=== PATIENT | female | born 1960 | race African-American/Black ===

== ENCOUNTER 2019-06-15 13:16 | Observation (INO) | payer MEDICARE, OTHER ==
[2019-06-15] MEDS ORDERED: NITROGLYCERIN OINT 1 INCH/GM PACKET TOPICAL STA (13:59)
[2019-06-15 14:28] LABS: Basophils % (A) 0 %; Eosinophils # (A) 0.3 k/uL (0-0.7); Eosinophils % (A) 4 %; HCT 41.2 % (34.0-46.0); HGB 13.3 gm/dL (11.4-16.0); Lymphocytes # (A) 2.5 k/uL (1.0-4.8); Lymphocytes % (A) 32 %; MCH 31.2 pg (25.0-35.0); MCHC 32.3 g/dL (31.0-37.0); MCV 96.5 fL (80.0-100.0); Mean Platelet Volume 8.2; Monocytes # (A) 0.5 k/uL (0-1.0); Monocytes % (A) 7 %; Neutrophils # (A) 4.1 k/uL (1.3-7.7); Neutrophils % (A) 54 %; Platelet Count 261 k/uL (150-450); RBC 4.27 m/uL (3.80-5.40); RDW 14.3 % (11.5-15.5); WBC 7.6 k/uL (3.8-10.6)
[2019-06-15 14:38] LABS: D-Dimer 0.27 mg/L FEU (<0.60); INR 0.9 (<1.2); Partial Thromboplastin Time 26.2 sec (22.0-30.0); Prothrombin Time 9.8 sec (9.0-12.0)
[2019-06-15 14:45] LABS: ALT 97 U/L (9-52); AST 82 U/L (14-36); African American GFR (CKD) >90 (>60 ml/min/1.73 sqM); Albumin 4.3 g/dL (3.5-5.0); Alkaline Phosphatase 202 U/L (38-126); Anion Gap 10 mmol/L; Blood Urea Nitrogen 12 mg/dL (7-17); Calcium 9.6 mg/dL (8.4-10.2); Carbon Dioxide 26 mmol/L (22-30); Chloride 103 mmol/L (98-107); Glucose 84 mg/dL (74-99); Magnesium 1.5 mg/dL (1.6-2.3); Potassium 4.3 mmol/L (3.5-5.1); Sodium 139 mmol/L (137-145); Total Bilirubin 0.5 mg/dL (0.2-1.3); Total Protein 7.8 g/dL (6.3-8.2)
--- NOTE | 2019-06-15 14:53 | XR ---
EXAMINATION TYPE: XR chest 2V DATE OF EXAM: 06/15/2019 COMPARISON: NONE TECHNIQUE: PA and lateral views submitted. HISTORY: Chest pain FINDINGS: Subsegmental changes left lung base. No pleural effusion or pneumothorax. Heart size normal. Mild hyp erinflation. IMPRESSION: 1. Basilar atelectasis favored over pneumonia. Correlate for COPD..
[2019-06-15] MEDS ORDERED: MORPHINE SULFATE 2 MG/ML SYRINGE IVP STA ×2 (17:33→20:07)
[2019-06-15] MEDS ORDERED: ASPIRIN 81 MG PO STA (17:33)
--- NOTE | 2019-06-15 17:54 | ED ---
Chest Pain HPI - General Chief Complaint: Chest Pain Stated Complaint: Chest pain Time Seen by Provider: 06/15/19 13:53 Source: patient, EMS Mode of arrival: EMS Limitations: no limitations - History of Present Illness Initial Comments: This 58-year-old female presents with a complaint of some chest pain. She states that she initially was at her dentist today hoping to get some teeth pulled. They found that her blood pressure was high so she went home and took her blood pressure medication. Shortly thereafter she developed some chest pain which is more in the mid sternal region. There is a slight pleuritic component. She describes the pain as sharp in nature. She denies any shortness of breath or cough. There's been no fevers or chills. She does complain of dental pain. No other complaints or modifying factors. - Related Data Home Medications Medication Instructions Recorded Confirmed Albuterol Nebulized [Ventolin 2.5 mg INHALATION RT-Q4H PRN 06/15/19 06/15/19 Nebulized] Aspirin EC [Ecotrin] 325 mg PO DAILY 06/15/19 06/15/19 amLODIPine BESYLATE [Norvasc] 10 mg PO DAILY 06/15/19 06/15/19 diphenhydrAMINE [Benadryl] 25 mg PO QID PRN 06/15/19 06/15/19 Allergies Allergy/AdvReac Type Severity Reaction Status Date / Time ibuprofen [From Motrin] Allergy Itching Verified 06/15/19 13:51 Review of Systems ROS Statement: Those systems with pertinent positive or pertinent negative responses have been documented in the HPI. ROS Other: All systems not noted in ROS Statement are negative. Past Medical History Past Medical History: COPD, Hypertension, Thyroid Disorder History of Any Multi-Drug Resistant Organisms: None Reported Past Surgical History: No Surgical Hx Reported Past Psychological History: Bipolar Smoking Status: Current every day smoker Past Alcohol Use History: None Reported Past Drug Use History: Marijuana General Exam - General Exam Comments Initial Comments: GENERAL: The patient is well nourished and well hydrated. VITAL SIGNS: Heart rate, blood pressure, respiratory rate reviewed as recorded in nurse's notes. EYES: Pupils are round and reactive. Extraocular movements are intact. No conjunctival / lid redness or swelling. ENT: No external evidence of injury, swelling, or ecchymosis. Airway is patent. Throat is clear. NECK: Nontender. No swelling or evidence of injury. No subcutaneous emphysema. Trachea is midline. No thyroid mass. HEART: Regular rate and rhythm. Good peripheral pulses. LUNGS/CHEST: Breath sounds clear and equal bilaterally. No rales, rhonchi, or wheezes. No ecchymosis, subcutaneous emphysema, or tenderness. ABDOMEN: Abdomen soft without tenderness. No palpable masses or organomegaly. No peritoneal signs. No abdominal wall swelling or ecchymosis. EXTREMITIES: No extremity tenderness. Normal muscle tone and function. No thoracolumbar tenderness. NEUROLOGIC: Sensation is grossly intact. Cranial nerve exam reveals face is symmetrical, tongue is midline, speech is clear. SKIN: No abrasions or ecchymosis is noted. No induration or masses noted. PSYCHIATRIC: Alert and oriented. Appropriate behavior and judgment. Limitations: no limitations Course Vital Signs 06/15/19 06/15/19 06/15/19 13:27 13:28 13:30 Temperature 98.5 F Pulse Rate 87 87 89 Respiratory 13 18 12 Rate Blood Pressure 136/88 136/88 O2 Sat by Pulse 100 100 100 Oximetry 06/15/19 06/15/19 06/15/19 14:00 14:30 17:30 Temperature Pulse Rate 93 Respiratory 18 Rate Blood Pressure 130/99 141/102 138/98 O2 Sat by Pulse 99 Oximetry Chest Pain [facility] The patient was seen and examined. All diagnostics were reviewed. An EKG was done which shows a normal sinus rhythm at a rate of 86. There is no acute ST-T wave changes identified. The AL intervals 132, QRS duration is 82, and the QTC intervals 437. The patient does receive some Nitropaste. She later complains of a headache and receives 2 mg of morphine. She is ALLERGIC to Motrin but states that she can take aspirin so an aspirin was given orally. The laboratory analysis is also essentially within normal limits except for minor abnormalities. She is a negative d-dimer and troponin. The patient's chest x- ray does not show any acute processes. It is felt as though she would benefit from admission to the hospital. It is felt as though she potentially could have acute coronary syndrome and this needs to be further evaluated. She is agreeable. Case will be discussed with internal medicine shortly. Disposition Clinical Impression: Chest pain, Unstable angina pectoris Disposition: ADMITTED IP TO THIS HOSP Condition: Fair Is patient prescribed a controlled substance at d/c from ED?: No Referrals: [facility] [Primary Care Provider] - 1-2 days Time of Disposition: 17:54 Decision Date: 06/15/19 Decision Time: 17:54
[2019-06-15] MEDS ORDERED: MORPHINE SULFATE 2 MG/ML SYRINGE IVP PRN (17:55)
[2019-06-15] MEDS ORDERED: NITROGLYCERIN SL TABS 0.4 MG TAB SUBLINGUAL PRN (17:55)
[2019-06-15] MEDS ORDERED: diphenhydrAMINE 25 MG CAP PO PRN (17:58)
[2019-06-15] MEDS ORDERED: ALBUTEROL NEBULIZED 2.5 MG/3 ML INHALATION PRN (17:58)
[2019-06-15] MEDS: NITROGLYCERIN OINT 1 INCH/GM PACKET TOPICAL SCH ×2 (19:01→21:55)
[2019-06-16 03:52] LABS: Cholesterol 192 mg/dL (<200); HDL Cholesterol 102 mg/dL (40-60); LDL Cholesterol,Calculated 74 mg/dL (0-99); Triglycerides 78 mg/dL (<150)
[2019-06-16] MEDS ORDERED: amLODIPine 10 MG TAB PO SCH (09:00)
[2019-06-16] MEDS ORDERED: ASPIRIN 325 MG TAB PO SCH (09:00)
[2019-06-16] MEDS ORDERED: ENOXAPARIN 40 MG/0.4 ML SYRINGE SQ SCH (09:00)
[2019-06-16] MEDS ORDERED: Magnesium Replacement Protocol 1 EACH MISC MISCELLANE PRN (10:29)
[2019-06-16] MEDS: MAGNESIUM SULFATE-D5W PMX 1 GM in DEXTROSE/WATER 1 100ML.BAG IVPB SCH ×2 (11:34→11:35)
[2019-06-16 12:15] VITALS: BP 122/77; PULSE 85; RESP 17; TEMP 98.7
--- NOTE | 2019-06-16 12:15 | ECHOF ---
Referral Reason:cp MEASUREMENTS -------- HEIGHT: 167.6 cm WEIGHT: 57.6 kg BP: 127/82 RVIDd: 2.3 cm (< 3.3) IVSd: 1.0 cm (0.6 - 1.1) LVIDd: 4.0 cm (3.9 - 5.3) LVPWd: 0.9 cm (0.6 - 1.1) IVSs: 1.3 cm LVIDs: 2.9 cm LVPWs: 1.6 cm LA Diam: 2.7 cm (2.7 - 3.8) LAESV Index (A-L): 13.55 ml/m Ao Diam: 2.5 cm (2.0 - 3.7) AV Cusp: 1.9 cm (1.5 - 2.6) MV EXCURSION: 20.824 mm (> 18.000) MV EF SLOPE: 134 mm/s (70 - 150) EPSS: 0.5 cm MV E Gene: 0.54 m/s MV DecT: 370 ms MV A Gene: 0.62 m/s MV E/A Ratio: 0.88 FINDINGS -------- Sinus rhythm. This was a technically good study. The left ventricular size is normal. Left ventricular wall thickness is normal. Overall left vent ricular systolic function is normal with, an EF between 55 - 60 %. The right ventricle is normal in size. Normal LA size by volume 22+/-6 ml/m2. The right atrium is normal in size. Interatrial and interventricular septum intact. The aortic valve is trileaflet and appears structurally normal. The mitral valve is normal. The tricuspid valve appears structurally normal. The pulmonic valve was not well visualized. The aortic root size is normal. Normal inferior vena cava with normal inspiratory collapse consistent with estimated right atrial pre ssure of 5 mmHg. There is no pericardial effusion. CONCLUSIONS -------- 1. Sinus rhythm. 2. This was a technically good study. 3. The left ventricular size is normal. 4. Left ventricular wall thickness is normal. 5. Overall left ventricular systolic function is normal with, an EF between 55 - 60 %. 6. The right ventricle is normal in size. 7. Normal LA size by volume 22+/-6 ml/m2. 8. The right atrium is normal in size. 9. Interatrial and interventricular septum intact. 10. The aortic valve is trileaflet and appears structurally normal. 11. The mitral valve is normal. 12. The tricuspid valve appears structurally normal. 13. The pulmonic valve was not well visualized. 14. The aortic root size is normal. 15. Normal inferior vena cava with normal inspiratory collapse consistent with estimated right atrial pressure of 5 mmHg. 16. There is no pericardial effusion. [place] HAND: Pooja Yin RDCS
--- NOTE | 2019-06-16 12:29 | P.DS ---
Providers Date of admission: 06/15/19 17:55 Attending physician: Chica Simpson Consults: 06/15/19 17:55 Consult Physician Urgent Consulting Provider: Tara Mejia Consult Reason/Comments: cp Do you want consulting provider notified?: Yes Primary care physician: [facility] Course: Please refer to my HPI Patient Condition at Discharge: Fair Plan - Discharge Summary Discharge Rx Participant: No New Discharge Prescriptions: New Tiotropium [place] [Spiriva] 1 cap INHALATION DAILY #1 device Budesonide-Formot 160-4.5 Mcg [Symbicort 160-4.5 Mcg Inhaler] 2 puff INHALATION BID #1 inhaler Magnesium Oxide [Mag-Ox] 400 mg PO DAILY #20 tablet No Action diphenhydrAMINE [Benadryl] 25 mg PO QID PRN PRN Reason: Allergy Symptoms amLODIPine BESYLATE [Norvasc] 10 mg PO DAILY Aspirin EC [Ecotrin] 325 mg PO DAILY Albuterol Nebulized [Ventolin Nebulized] 2.5 mg INHALATION RT-Q4H PRN PRN Reason: Shortness Of Breath Discharge Medication List Albuterol Nebulized [Ventolin Nebulized] 2.5 mg INHALATION RT-Q4H PRN 06/15/19 [History] Aspirin EC [Ecotrin] 325 mg PO DAILY 06/15/19 [History] amLODIPine BESYLATE [Norvasc] 10 mg PO DAILY 06/15/19 [History] diphenhydrAMINE [Benadryl] 25 mg PO QID PRN 06/15/19 [History] Budesonide-Formot 160-4.5 Mcg [Symbicort 160-4.5 Mcg Inhaler] 2 puff INHALATION BID #1 inhaler 06/16/19 [Rx] Magnesium Oxide [Mag-Ox] 400 mg PO DAILY #20 tablet 06/16/19 [Rx] Tiotropium [place] [Spiriva] 1 cap INHALATION DAILY #1 device 06/16/19 [Rx] Follow up Appointment(s)/Referral(s): [facility] [Primary Care Provider] - 3 Days Tara Mejia MD [STAFF PHYSICIAN] - 06/29/19 2:30 pm Discharge Disposition: HOME SELF-CARE
--- NOTE | 2019-06-16 12:29 | P.HPIM ---
History of Present Illness Patient is a 58-year-old female came in with compensative chest pain, nonexertional not associated shortness of breath. Not associated with diaphoresis constant sharp nonradiating in the midsternal area patient chest pain is reproducible, and appears to be musculoskeletal in nature was evaluated by cardiology and we ruled out acute coronary syndromes no further testing is being recommended by cardiology as patient has completely typical pain which is reproducible. Upper exam patient is sitting and wheezing does smoke half a pack of cigarettes a day comparing of cough without any significant sputum production. I really want to keep this patient for COPD exacerbation although minimal but patient doesn't want to stay in is not requiring oxygen and start her on inhaled steroids and add the Spiriva to her albuterol and will be discharged to follow up with primary care physician as an outpatient patient has a common to mental health follow-up today Review of Systems REVIEW OF SYSTEMS: CONSTITUTIONAL: No fever, no malaise, no fatigue. HEENT: No recent visual problems or hearing problems. Denied any sore throat. CARDIOVASCULAR: No orthopnea, PND, no palpitations, no syncope. PULMONARY: no hemoptysis. GASTROINTESTINAL: No diarrhea, no nausea, no vomiting, no abdominal pain. NEUROLOGICAL: No headaches, no weakness, no numbness. HEMATOLOGICAL: Denies any bleeding or petechiae. GENITOURINARY: Denies any burning micturition, frequency, or urgency. MUSCULOSKELETAL/RHEUMATOLOGICAL: Denies any joint pain, swelling, or any muscle pain. ENDOCRINE: Denies any polyuria or polydipsia. The rest of the 14-point review of systems is negative. Past Medical History Past Medical History: COPD, Hypertension, Thyroid Disorder History of Any Multi-Drug Resistant Organisms: None Reported Past Surgical History: No Surgical Hx Reported Additional Past Surgical History / Comment(s): myasthenia gravis Past Anesthesia/Blood Transfusion Reactions: No Reported Reaction Past Psychological History: Anxiety, Bipolar, Depression Smoking Status: Current every day smoker Past Alcohol Use History: None Reported Past Drug Use History: Marijuana - Past Family History Father History Unknown: Yes Mother History Unknown: Yes Sister(s) History Unknown: Yes Brother(s) History Unknown: Yes Daughter(s) Family Medical History: No Reported History Son(s) Family Medical History: No Reported History Medications and Allergies Home Medications Medication Instructions Recorded Confirmed Type Albuterol Nebulized [Ventolin 2.5 mg INHALATION RT-Q4H PRN 06/15/19 06/15/19 History Nebulized] Aspirin EC [Ecotrin] 325 mg PO DAILY 06/15/19 06/15/19 History amLODIPine BESYLATE [Norvasc] 10 mg PO DAILY 06/15/19 06/15/19 History diphenhydrAMINE [Benadryl] 25 mg PO QID PRN 06/15/19 06/15/19 History Budesonide-Formot 160-4.5 Mcg 2 puff INHALATION BID #1 inhaler 06/16/19 Rx [Symbicort 160-4.5 Mcg Inhaler] Magnesium Oxide [Mag-Ox] 400 mg PO DAILY #20 tablet 06/16/19 Rx Tiotropium [place] [Spiriva] 1 cap INHALATION DAILY #1 device 06/16/19 Rx Allergies Allergy/AdvReac Type Severity Reaction Status Date / Time ibuprofen [From Motrin] Allergy Itching Verified 06/15/19 21:16 Physical Exam Vitals: Vital Signs Temp Pulse Pulse Resp BP BP Pulse Ox 06/16/19 12:00 98.7 F 85 17 122/77 98 06/16/19 07:39 98.5 F 71 16 127/82 100 06/16/19 03:22 98.0 F 84 18 125/77 99 06/15/19 23:44 98.0 F 83 16 118/75 97 06/15/19 21:06 98.4 F 83 16 120/79 97 06/15/19 20:18 96 18 121/87 98 06/15/19 19:18 98 F 93 18 128/105 97 06/15/19 19:00 99 16 153/95 94 L 06/15/19 18:30 90 16 154/99 98 06/15/19 18:00 147/98 06/15/19 17:30 93 18 138/98 99 06/15/19 14:30 141/102 06/15/19 14:00 130/99 06/15/19 13:30 89 12 136/88 100 06/15/19 13:28 98.5 F 87 18 136/88 100 06/15/19 13:27 87 13 100 Intake and Output 06/15/19 06/16/19 06/16/19 22:59 06:59 14:59 Other: Voiding Method Toilet Toilet # Voids 2 PHYSICAL EXAMINATION: GENERAL: The patient is alert and oriented x3, not in any acute distress. Well developed, well nourished. HEENT: Pupils are round and equally reacting to light. EOMI. No scleral icterus. No conjunctival pallor. Normocephalic, atraumatic. No pharyngeal erythema. No thyromegaly. CARDIOVASCULAR: S1 and S2 present. No murmurs, rubs, or gallops. PULMONARY: Decreased air entry with the expiratory wheezing on exam ABDOMEN: Soft, nontender, nondistended, normoactive bowel sounds. No palpable organomegaly. MUSCULOSKELETAL: No joint swelling or deformity. EXTREMITIES: No cyanosis, clubbing, or pedal edema. NEUROLOGICAL: Gross neurological examination did not reveal any focal deficits. SKIN: No rashes. Results CBC & Chem 7: 06/15/19 14:08 06/15/19 14:08 Labs: Abnormal Lab Results - Last 24 Hours (Table) 06/15/19 06/15/19 Range/Units 14:08 14:08 Creatinine 0.51 L (0.52-1.04) mg/dL Magnesium 1.5 L (1.6-2.3) mg/dL AST 82 H (14-36) U/L ALT 97 H (9-52) U/L Alkaline Phosphatase 202 H (38-126) U/L HDL Cholesterol 102 H (40-60) mg/dL Thrombosis Risk Factor Assmnt - Choose All That Apply Any of the Below Risk Factors Present?: Yes Each Factor Represents 1 point: Abnormal pulmonary function (COPD), Age 41-60 years, Varicose veins Other Risk Factors: No Other congenital or acquired thrombophilia - If yes, enter type in comment: No Thrombosis Risk Factor Assessment Total Risk Factor Score: 3 Thrombosis Risk Factor Assessment Level: Moderate Risk Assessment and Plan Assessment: -Chest pain: Rule out acute coronary syndromes, unstable angina, patient's chest pain is musculoskeletal was asked to take Tylenol on as-needed basis. Gallbladder ultrasound was ordered by cardiology. -COPD: Nicotine cessation counseling was provided patient will be discharged on inhaled steroids -Hypertension next and heparin hypothyroidism -Bipolar disorder and depression -Marijuana use and nicotine use: Counseling was provided
--- NOTE | 2019-06-16 12:30 | P.CRDCN ---
History of Present Illness History of present illness: This is a pleasant 58-year-old -[place] female past medical history significant for hypertension, COPD and chronic nicotine dependence. She denies history of coronary artery disease and does not follow with a senior telecommunications technician for any reason. We have been asked to see her in consultation secondary to chest discomfort. She states yesterday she went to the dentist to have a tooth pull ed, however her blood pressure was too high and they sent her home. She went back to the nursing home she is staying at and laid down. Shortly thereafter she started having pain in the mid-sternal region like someone was punching her in the chest. It felt very sharp and stabbing and was mildly worse with movement or palpation in epigastric region. This discomfort lasted up to an hour until she came to the emergency department for evaluation. There was no radiation to the arm, back, neck or jaw. She denies associated shortness of breath, dizziness, nausea, vomiting, diaphoresis or palpitations. She has had no further chest pain since arrival. EKG reveals sinus mechanism with no acute ST or T wave abnormalities noted. Chest x-ray reveals evidence of bibasilar atelectasis and COPD. Laboratory data reviewed, cardiac enzymes negative 3, WBC 7.6, hemoglobin 13.3, platelets 261, d-dimer 0.27, sodium 139, potassium 4.3, creatinine 0.51, magnesium 1.5, AST 82, ALT 97, alkaline phosphatase 202, LDL 74. Current cardiac medications include aspirin 325 mg daily and amlodipine 10 mg daily. At the time of my exam: CONSTITUTIONAL: Denies fever. Denies chills. EYES: Denies blurred vision. Denies vision changes. Denies eye pain. EARS, NOSE, MOUTH & THROAT: Denies headache. Denies sore throat. Denies ear pain. CARDIOVASCULAR: Denies chest pain. Denies shortness of breath. Denies orthopnea. Denies PND. Denies palpitations. RESPIRATORY: Denies cough. GASTROINTESTINAL: Denies abdominal pain. Denies diarrhea. Denies constipation. Denies nausea. Denies vomiting. MUSCULOSKELETAL: Denies myalgias. INTEGUMENTARY: Denies pruitis. Denies rash. NEUROLOGIC: Denies numbness. Denies tingling. Denies weakness. PSYCHIATRIC: Denies anxiety. Denies depression. ENDOCRINE: Denies fatigue. Denies weight change. Denies polydipsia. Denies polyurina. GENITOURINARY: Denies burning, hematuria or urgency with micturation. HEMATOLOGIC: Denies history of anemia. Denies bleeding. Blood pressure 127/82 heart rate 71 afebrile maintaining oxygen saturation on room air GENERAL: This is a 58-year-old -[place] female in no apparent distress at the time of my examination. HEENT: Head is atraumatic, normocephalic. Pupils are equal, round. Sclerae anicteric. Conjunctivae are clear. Mucous membranes of the mouth are moist. Neck is supple. There is no jugular venous distention. No carotid bruit is heard. LUNGS: Coarse sounds throughout, faint expiratory wheezes no rales. No chest wall tenderness is noted on palpation or with deep breathing. HEART: Regular rate and rhythm without murmurs, rubs or gallops. S1 and S2 heard. ABDOMEN: Soft, mild epigastric tenderness. Bowel sounds are heard. No organ omegaly noted. EXTREMITIES: No evidence of peripheral edema and no calf tenderness noted. VASCULAR: Radial and dorsalis pedis pulses palpated, no evidence of clubbing. NEUROLOGIC: Patient is awake, alert and oriented x3. ASSESSMENT Chest pain, atypical for angina. An acute coronary event has been ruled out. Epigastric discomfort with elevated liver enzymes and alkaline phosphatase. Hypomagnesemia Hypertension COPD Chronic nicotine dependence PLAN An acute coronary event has been ruled out. Obtain 2-D echocardiogram and Doppler study to assess cardiac structure and function. Check an ultrasound of the gallbladder to rule out underlying gallbladder disease. Replace magnesium per protocol. Decrease aspirin to 81 mg daily. Thank you kindly for this consultation. Nurse Practitioner note has been reviewed, I agree with a documented findings and plan of care. Patient was seen and examined. Past Medical History Past Medical History: COPD, Hypertension, Thyroid Disorder History of Any Multi-Drug Resistant Organisms: None Reported Past Surgical History: No Surgical Hx Reported Additional Past Surgical History / Comment(s): myasthenia gravis Past Anesthesia/Blood Transfusion Reactions: No Reported Reaction Past Psychological History: Anxiety, Bipolar, Depression Smoking Status: Current every day smoker Past Alcohol Use History: None Reported Past Drug Use History: Marijuana - Past Family History Father History Unknown: Yes Mother History Unknown: Yes Sister(s) History Unknown: Yes Brother(s) History Unknown: Yes Daughter(s) Family Medical History: No Reported History Son(s) Family Medical History: No Reported History Medications and Allergies Home Medications Medication Instructions Recorded Confirmed Type Albuterol Nebulized [Ventolin 2.5 mg INHALATION RT-Q4H PRN 06/15/19 06/15/19 History Nebulized] Aspirin EC [Ecotrin] 325 mg PO DAILY 06/15/19 06/15/19 History amLODIPine BESYLATE [Norvasc] 10 mg PO DAILY 06/15/19 06/15/19 History diphenhydrAMINE [Benadryl] 25 mg PO QID PRN 06/15/19 06/15/19 History Budesonide-Formot 160-4.5 Mcg 2 puff INHALATION BID #1 inhaler 06/16/19 Rx [Symbicort 160-4.5 Mcg Inhaler] Magnesium Oxide [Mag-Ox] 400 mg PO DAILY #20 tablet 06/16/19 Rx Tiotropium [place] [Spiriva] 1 cap INHALATION DAILY #1 device 06/16/19 Rx Allergies Allergy/AdvReac Type Severity Reaction Status Date / Time ibuprofen [From Motrin] Allergy Itching Verified 06/15/19 21:16 Physical Exam Vitals: Vital Signs Temp Pulse Pulse Resp BP BP Pulse Ox 06/16/19 07:39 98.5 F 71 16 127/82 100 06/16/19 03:22 98.0 F 84 18 125/77 99 06/15/19 23:44 98.0 F 83 16 118/75 97 06/15/19 21:06 98.4 F 83 16 120/79 97 06/15/19 20:18 96 18 121/87 98 06/15/19 19:18 98 F 93 18 128/105 97 06/15/19 19:00 99 16 153/95 94 L 06/15/19 18:30 90 16 154/99 98 06/15/19 18:00 147/98 06/15/19 17:30 93 18 138/98 99 06/15/19 14:30 141/102 06/15/19 14:00 130/99 06/15/19 13:30 89 12 136/88 100 06/15/19 13:28 98.5 F 87 18 136/88 100 06/15/19 13:27 87 13 100 Intake and Output 06/15/19 06/16/19 06/16/19 22:59 06:59 14:59 Other: Voiding Method Toilet Toilet # Voids 2 Results 06/15/19 14:08 06/15/19 14:08 Cardiac Enzymes 06/15/19 06/15/19 06/15/19 Range/Units 14:08 14:08 19:54 AST 82 H (14-36) U/L Troponin I <0.012 <0.012 (0.000-0.034) ng/mL 06/16/19 Range/Units 01:24 AST (14-36) U/L Troponin I <0.012 (0.000-0.034) ng/mL Coagulation 06/15/19 Range/Units 14:08 PT 9.8 (9.0-12.0) sec APTT 26.2 (22.0-30.0) sec Lipids 06/15/19 Range/Units 14:08 Triglycerides 78 (<150) mg/dL Cholesterol 192 (<200) mg/dL HDL Cholesterol 102 H (40-60) mg/dL CBC 06/15/19 Range/Units 14:08 WBC 7.6 (3.8-10.6) k/uL RBC 4.27 (3.80-5.40) m/uL Hgb 13.3 (11.4-16.0) gm/dL Hct 41.2 (34.0-46.0) % Plt Count 261 (150-450) k/uL Comprehensive Metabolic Panel 06/15/19 Range/Units 14:08 Sodium 139 (137-145) mmol/L Potassium 4.3 (3.5-5.1) mmol/L Chloride 103 (98-107) mmol/L Carbon Dioxide 26 (22-30) mmol/L BUN 12 (7-17) mg/dL Creatinine 0.51 L (0.52-1.04) mg/dL Glucose 84 (74-99) mg/dL Calcium 9.6 (8.4-10.2) mg/dL AST 82 H (14-36) U/L ALT 97 H (9-52) U/L Alkaline Phosphatase 202 H (38-126) U/L Total Protein 7.8 (6.3-8.2) g/dL Albumin 4.3 (3.5-5.0) g/dL Current Medications Generic Name Dose Route Start Last Admin Trade Name Freq PRN Reason Stop Dose Admin Albuterol Sulfate 2.5 mg 06/15/19 17:58 Ventolin Nebulized INHALATION RT-Q4H PRN Shortness Of Breath Amlodipine Besylate 10 mg 06/16/19 09:00 Norvasc PO DAILY [facility] Aspirin 325 mg 06/16/19 09:00 Aspirin PO DAILY [facility] Diphenhydramine HCl 25 mg 06/15/19 17:58 Benadryl PO QID PRN Allergy Symptoms Enoxaparin Sodium 40 mg 06/16/19 09:00 Lovenox SQ DAILY [facility] Morphine Sulfate 2 mg 06/15/19 17:55 Morphine Sulfate (Inj) IVP Q3H PRN Pain Nitroglycerin 0.4 mg 06/15/19 17:55 Nitrostat SUBLINGUAL Q5M PRN Chest Pain Intake and Output 06/15/19 06/16/19 06/16/19 22:59 06:59 14:59 Other: Voiding Method Toilet Toilet # Voids 2 06/15/19 14:08 06/15/19 14:08
--- NOTE | 2019-06-16 13:56 | US ---
EXAMINATION TYPE: US gallbladder DATE OF EXAM: 06/16/2019 COMPARISON: NONE CLINICAL HISTORY: abd pain, abd fullness,. Patient states no pain. NPO. EXAM MEASUREMENTS: Liver Length: 12.3 cm Gallbladder Wall: 0.2 cm CBD: 0.3 cm Right Kidney: 9.1 x 4.5 x 4.6 cm Pancreas: main pancreatic duct = 2.6 mm. Head not well visualized due to overlying bowel gas Liver: Appears coarse in appearance Gallbladder: Echogenic focus with shadow - 0.5 cm Evidence for sonographic Blackburn's sign: neg CBD: wnl Right Kidney: wnl as seen, limited visualization of lower pole due to overlying bowel gas IMPRESSION: 1. Contracted cholelithiasis. 2. Probable hepatic steatosis. Correlate clinically.
== END 2019-06-16 13:22 | disposition home or self-care (01) ==
LOC: EC 13:16 → 1SOBS 17:55
PROVIDERS: ADMIT Internal Medicine; ATTEND Internal Medicine
DX: R07.89 Other chest pain (principal); R10.13 Epigastric pain; E83.42 Hypomagnesemia; R74.8 Abnormal levels of other serum enzymes; J44.1 Chronic obstructive pulmonary disease with (acute) exacerbation; I10 Essential (primary) hypertension; G70.00 Myasthenia gravis without (acute) exacerbation; E03.9 Hypothyroidism, unspecified; F41.9 Anxiety disorder, unspecified; F31.9 Bipolar disorder, unspecified; I83.90 Asymptomatic varicose veins of unspecified lower extremity; K08.89 Other specified disorders of teeth and supporting structures; T47.4X6A Underdosing of other laxatives, initial encounter; Y92.239 Unspecified place in hospital as the place of occurrence of the external cause; T45.516A Underdosing of anticoagulants, initial encounter; F17.210 Nicotine dependence, cigarettes, uncomplicated; Z91.19 Patient's noncompliance with other medical treatment and regimen; Z79.82 Long term (current) use of aspirin; Z79.899 Other long term (current) drug therapy; Z79.51 Long term (current) use of inhaled steroids; Z88.6 Allergy status to analgesic agent; Z59.0 Homelessness
CPT/HCPCS: 96376; 96374; 99285; 36415; 93005; 93306; 85379; 80061; 80053; 83735; 84484 ×2; 85025; 85610; 85730; 71046; 76705; G0378 ×2; J2270

== ENCOUNTER 2019-07-12 10:44 | Inpatient (IN) | payer OTHER, MEDICARE ==
--- NOTE | 2019-07-12 11:32 | ED ---
Psych HPI - General Chief Complaint: Psychiatric Symptoms Stated Complaint: Mental Health Time Seen by Provider: 07/12/19 10:46 Source: patient, EMS, RN notes reviewed Mode of arrival: EMS Limitations: no limitations - History of Present Illness Initial Comments: 59-year-old female presented emergency department with chief complaint of depression, suicidal ideation. Patient states that her brother recently in which her sister sent a picture of him overdose of the needle in his arm. Patient states that she does not want to live anymore. Patient states that she is severely depressed. She does admit that she's been drinking alcohol recently because of her feelings. She does have a history of depression and psychiatric disorders. She denies any physical complaints. - Related Data Home Medications Medication Instructions Recorded Confirmed amLODIPine BESYLATE [Norvasc] 10 mg PO DAILY 06/15/19 07/12/19 Albuterol Sulfate [Proair 2 puff PO RT-Q6H PRN 07/12/19 07/12/19 Respiclick] Aspirin EC [Ecotrin Low Dose] 81 mg PO DAILY 07/12/19 07/12/19 Colloidal Oatmeal [Eucerin Eczema 1 applic TOPICAL BID 07/12/19 07/12/19 Relief] Loratadine [Claritin] 10 mg PO DAILY 07/12/19 07/12/19 QUEtiapine FUMARATE [SEROquel] 200 mg PO HS 07/12/19 07/12/19 Sertraline HCl [Zoloft] 100 mg PO DAILY 07/12/19 07/12/19 Allergies Allergy/AdvReac Type Severity Reaction Status Date / Time ibuprofen [From Motrin] Allergy Itching Verified 07/12/19 10:50 Review of Systems ROS Statement: Those systems with pertinent positive or pertinent negative responses have been documented in the HPI. ROS Other: All systems not noted in ROS Statement are negative. Past Medical History Past Medical History: COPD, Hypertension, Thyroid Disorder History of Any Multi-Drug Resistant Organisms: None Reported Past Surgical History: No Surgical Hx Reported Additional Past Surgical History / Comment(s): myasthenia gravis Past Anesthesia/Blood Transfusion Reactions: No Reported Reaction Past Psychological History: Anxiety, Bipolar, Depression Smoking Status: Current every day smoker Past Alcohol Use History: None Reported, Occasional Past Drug Use History: Marijuana - Past Family History Father History Unknown: Yes Mother History Unknown: Yes Sister(s) History Unknown: Yes Brother(s) History Unknown: Yes Daughter(s) Family Medical History: No Reported History Son(s) Family Medical History: No Reported History General Exam Limitations: no limitations General appearance: alert, in no apparent distress Head exam: Present: atraumatic, normocephalic, normal inspection Neck exam: Present: normal inspection, full ROM. Absent: tenderness, meningismus, lymphadenopathy Respiratory exam: Present: normal lung sounds bilaterally. Absent: respiratory distress, wheezes, rales, rhonchi, stridor Cardiovascular Exam: Present: regular rate, normal rhythm, normal heart sounds. Absent: systolic murmur, diastolic murmur, rubs, gallop, clicks GI/Abdominal exam: Present: soft, normal bowel sounds. Absent: distended, tenderness, guarding, rebound, rigid Neurological exam: Present: alert, oriented X3, CN II-XII intact, reflexes normal. Absent: motor sensory deficit Psychiatric exam: Present: depressed, other (Patient is tearful) Skin exam: Present: warm, dry, intact, normal color. Absent: rash Course Vital Signs 07/12/19 11:06 Temperature 99.3 F Pulse Rate 89 Respiratory 18 Rate Blood Pressure 152/100 O2 Sat by Pulse 100 Oximetry Medical Decision Making - Medical Decision Making 59-year-old female presented for psychiatric evaluation evaluated by EPS case discussed with psychiatrist recommends inpatient treatment. - Lab Data Lab Results 07/12/19 Range/Units 14:10 Urine Opiates Screen Not Detected (NotDetected) Ur Oxycodone Screen Not Detected (NotDetected) Urine Methadone Screen Not Detected (NotDetected) Ur Propoxyphene Screen Not Detected (NotDetected) Ur Barbiturates Screen Not Detected (NotDetected) U Tricyclic Antidepress Detected H (NotDetected) Ur Phencyclidine Scrn Not Detected (NotDetected) Ur Amphetamines Screen Not Detected (NotDetected) U Methamphetamines Scrn Not Detected (NotDetected) U Benzodiazepines Scrn Not Detected (NotDetected) Urine Cocaine Screen Not Detected (NotDetected) U Marijuana (THC) Screen Detected H (NotDetected) Disposition Clinical Impression: Depression, Suicidal ideation Disposition: TRANSFER TO PSYCH HOSP/UNIT Referrals: [facility],Milena Tello [Primary Care Provider] - 1-2 days
[2019-07-12] MEDS ORDERED: ACETAMINOPHEN TAB 325 MG TAB PO STA (11:46)
[2019-07-12 14:26] LABS: Amphetamine Screen,Urine Not Detected (NotDetected); Barbiturate Screen,Urine Not Detected (NotDetected); Benzodiazepines Screen,Urine Not Detected (NotDetected); Cocaine Screen,Urine Not Detected (NotDetected); Methadone Screen, Urine Not Detected (NotDetected); Opiate Screen,Urine Not Detected (NotDetected); Oxycodone Screen, Urine Not Detected (NotDetected); Phencyclidine Screen,Urine Not Detected (NotDetected); Tricyclic Antidepressant,Urine Detected (NotDetected); Urn Cannabinoid Scrn Detected (NotDetected)
[2019-07-12] MEDS ORDERED: LORazepam 1 MG TAB PO STA (15:46)
[2019-07-12] MEDS ORDERED: ALBUTEROL INHALER 60 PUFF/8 GM INHALER INHALATION PRN (18:35)
[2019-07-12] MEDS ORDERED: ACETAMINOPHEN TAB 325 MG TAB PO PRN (18:36)
[2019-07-12] MEDS ORDERED: MAGNESIUM HYDROXIDE 2,400 MG/10 ML CUP PO PRN (18:36)
[2019-07-12] MEDS ORDERED: LORazepam 1 MG TAB PO PRN (18:36)
[2019-07-12] MEDS ORDERED: LORazepam 2 MG/ML INJ IM PRN (18:38)
[2019-07-12] MEDS: QUEtiapine 200 MG TAB PO SCH (20:49)
[2019-07-12] MEDS: MINERAL OIL-WHITE PETROLATUM 120 GM JAR TOPICAL SCH (20:50)
--- NOTE | 2019-07-13 00:16 | P.MDCNMH ---
History of Present Illness H&P Date: 07/13/19 Chief Complaint: medical management 59-year-old female with history of myasthenia hypertension COPD Patient brought into the hospital due to overwhelming depression due to recent of her brother she was having suicidal ideation finding on overdosing on pills. Otherwise she reports that she is compliant with her medications denies any chest pain or trouble breathing denies any fevers or chills denies any nausea vomiting or abdominal pain. She currently denies any medical complaints Review of Systems Pertinent positives as noted in HPI. All other systems were reviewed and are negative Past Medical History Past Medical History: COPD, Hypertension, Thyroid Disorder History of Any Multi-Drug Resistant Organisms: None Reported Past Surgical History: No Surgical Hx Reported Additional Past Surgical History / Comment(s): myasthenia gravis Past Anesthesia/Blood Transfusion Reactions: No Reported Reaction Past Psychological History: Anxiety, Bipolar, Depression Smoking Status: Current every day smoker Past Alcohol Use History: None Reported, Occasional Past Drug Use History: Marijuana - Past Family History Father History Unknown: Yes Mother History Unknown: Yes Sister(s) History Unknown: Yes Brother(s) History Unknown: Yes Daughter(s) Family Medical History: No Reported History Son(s) Family Medical History: No Reported History Medications and Allergies Home Medications Medication Instructions Recorded Confirmed Type amLODIPine BESYLATE [Norvasc] 10 mg PO DAILY 06/15/19 07/12/19 History Albuterol Sulfate [Proair 2 puff PO RT-Q6H PRN 07/12/19 07/12/19 History Respiclick] Aspirin EC [Ecotrin Low Dose] 81 mg PO DAILY 07/12/19 07/12/19 History Colloidal Oatmeal [Eucerin Eczema 1 applic TOPICAL BID 07/12/19 07/12/19 History Relief] Loratadine [Claritin] 10 mg PO DAILY 07/12/19 07/12/19 History QUEtiapine FUMARATE [SEROquel] 200 mg PO HS 07/12/19 07/12/19 History Sertraline HCl [Zoloft] 100 mg PO DAILY 07/12/19 07/12/19 History Allergies Allergy/AdvReac Type Severity Reaction Status Date / Time ibuprofen [From Motrin] Allergy Itching Verified 07/12/19 10:50 Physical Exam Vitals: Vital Signs Temp Pulse Pulse Resp BP BP Pulse Ox 07/12/19 19:11 99.8 F H 111 H 20 157/89 97 07/12/19 16:06 97 18 174/89 95 07/12/19 11:06 99.3 F 89 18 152/100 100 Intake and Output 07/12/19 07/12/19 07/13/19 14:59 22:59 06:59 Other: Weight 54.431 kg Constitutional: No acute distress, conversant, pleasant Eyes: Anicteric sclerae, moist conjunctiva, no lid-lag Pupils equal round reactive to light ENMT: NC/AT Oropharynx clear, no erythema, or exudates Neck: Supple, FROM, no masses, or JVD No carotid bruits No thyromegaly Lungs: Clear to auscultation Clear to percussion Normal respiratory effort, no accessory muscle use Cardiovascular: Heart regular in rate and rhythm, No murmurs, gallops, or rubs No peripheral edema Abdominal: Soft Nontender, no guarding, rebound or rigidity Abdomen moving with respiration Normoactive bowel sounds No hepatomegaly, No splenomegaly No palpable mass No abdominal wall hernia noted Skin: Normal temperature, tone, texture, turgor No induration No subcutaneous nodules No rash, lesions No ulcers Extremities: No digital cyanosis No clubbing Pedal pulses intact and symmetrical Radial pulses intact and symmetrical No calf tenderness Psychiatric: Alert and oriented to person, place and time Depressed affect Poor judgment Neuro Muscles Strength 5/5 in all 4 extremities Sensation to light touch grossly present throughout Cranial nerves II-XII grossly intact No focal sensory deficits Lymphatics: no palpable cervical or supraclavicular , or inguinal lymph nodes Cranial Nerve Examination - Cranial Nerves Cranial Nerve II- Optic: Intact Cranial Nerve III- Oculomotor: Intact Cranial Nerve IV- Trochlear: Intact Cranial Nerve V- Trigeminal: Intact Cranial Nerve - Abducens: Intact Cranial Nerve VII- Facial: Intact Cranial Nerve VIII- Auditory: Intact Cranial Nerve IX- Glossopharyngeal: Intact Cranial Nerve X- Vagus: Intact Cranial Nerve XI- Accessory: Intact Cranial Nerve XII- Hypoglossal: Intact Results Labs: Abnormal Lab Results - Last 24 Hours (Table) 07/12/19 Range/Units 14:10 U Tricyclic Antidepress Detected H (NotDetected) U Marijuana (THC) Screen Detected H (NotDetected) Assessment and Plan Assessment: 59-year-old female with history of depression hypertension and COPD and my senior. Admitted due to suicidal ideation currently denies any medical concerns Plan: Depression and suicidal ideation Management per psych Suicide precautions Chronic conditions Hypertension My senior COPD without exacerbation Currently stable continue home medications DVT prophylaxis patient ambulatory low risk Tobacco smoking Patient counseled to quit smoking Dictating replacement therapy offered Alcohol abuse Withdrawal precautions Benzos when necessary per CIWA Thiamine Thank you for allowing us to participate in the care of this patient. We will follow peripherally. Do not hesitate to contact us with questions. Someone can be reached from the [facility] hospitalist group at all hours of the day at [phone].
[2019-07-13] MEDS: SERTRALINE 100 MG TAB PO SCH (08:09)
[2019-07-13] MEDS: LORATADINE 10 MG TAB PO SCH (08:09)
[2019-07-13] MEDS: THIAMINE 100 MG TAB PO SCH (08:09)
[2019-07-13] MEDS: NICOTINE 14MG/24HR PATCH TRANSDERM SCH (08:09)
[2019-07-13] MEDS: ASPIRIN 81 MG PO SCH (08:09)
[2019-07-13] MEDS: amLODIPine 10 MG TAB PO SCH (08:09)
[2019-07-13] MEDS: MINERAL OIL-WHITE PETROLATUM 120 GM JAR TOPICAL SCH ×2 (08:10→20:21)
[2019-07-13 08:45] LABS: Basophils # (A) 0.1 k/uL (0-0.2); Basophils % (A) 1 %; Eosinophils # (A) 0.1 k/uL (0-0.7); Eosinophils % (A) 1 %; HCT 43.2 % (34.0-46.0); HGB 13.9 gm/dL (11.4-16.0); Lymphocytes # (A) 1.9 k/uL (1.0-4.8); Lymphocytes % (A) 37 %; MCH 31.1 pg (25.0-35.0); MCHC 32.1 g/dL (31.0-37.0); Mean Platelet Volume 7.9; Monocytes # (A) 0.4 k/uL (0-1.0); Monocytes % (A) 7 %; Neutrophils # (A) 2.7 k/uL (1.3-7.7); Neutrophils % (A) 52 %; Platelet Count 212 k/uL (150-450); RBC 4.46 m/uL (3.80-5.40); RDW 13.9 % (11.5-15.5); WBC 5.2 k/uL (3.8-10.6)
[2019-07-13 09:04] LABS: ALT 28 U/L (9-52); AST 72 U/L (14-36); African American GFR (CKD) >90 (>60 ml/min/1.73 sqM); Albumin 4.7 g/dL (3.5-5.0); Alkaline Phosphatase 136 U/L (38-126); Anion Gap 12 mmol/L; Blood Urea Nitrogen 18 mg/dL (7-17); Calcium 9.6 mg/dL (8.4-10.2); Carbon Dioxide 25 mmol/L (22-30); Chloride 107 mmol/L (98-107); Cholesterol 185 mg/dL (<200); Glucose 93 mg/dL (74-99); Non-African American GFR(CKD) >90 (>60 ml/min/1.73 sqM); Potassium 4.1 mmol/L (3.5-5.1); Sodium 144 mmol/L (137-145); Total Bilirubin 1.3 mg/dL (0.2-1.3); Total Protein 8.7 g/dL (6.3-8.2); Triglycerides 74 mg/dL (<150)
[2019-07-13 09:12] LABS: LDL Cholesterol,Calculated 22 mg/dL (0-99)
[2019-07-13 09:18] LABS: HDL Cholesterol 148 mg/dL (40-60)
[2019-07-13] MEDS: chlordiazePOXIDE 25 MG CAP PO SCH ×3 (14:32→20:17)
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
[2019-07-13] MEDS: MULTIVITAMINS, THERA 1 EACH TAB PO SCH (14:42)
[2019-07-13] MEDS: LORazepam 1 MG TAB PO PRN (14:43)
[2019-07-13] MEDS: QUEtiapine 200 MG TAB PO SCH (20:16)
[2019-07-13 21:29] LABS: Hemoglobin A1C 5.3 % (4.0-6.0)
[2019-07-14] MEDS: MAG HYDROX/AL HYDROX/SIMETH 30 ML CUP PO PRN (08:04)
[2019-07-14] MEDS: NICOTINE 14MG/24HR PATCH TRANSDERM SCH (08:40)
[2019-07-14] MEDS: MINERAL OIL-WHITE PETROLATUM 120 GM JAR TOPICAL SCH ×2 (08:40→20:58)
[2019-07-14] MEDS: chlordiazePOXIDE 25 MG CAP PO SCH ×4 (08:41→21:00)
[2019-07-14] MEDS: SERTRALINE 100 MG TAB PO SCH (08:41)
[2019-07-14] MEDS: amLODIPine 10 MG TAB PO SCH (08:41)
[2019-07-14] MEDS: MULTIVITAMINS, THERA 1 EACH TAB PO SCH (08:41)
[2019-07-14] MEDS: LORATADINE 10 MG TAB PO SCH (08:41)
[2019-07-14] MEDS: THIAMINE 100 MG TAB PO SCH (08:41)
[2019-07-14] MEDS: ASPIRIN 81 MG PO SCH (08:41)
--- NOTE | 2019-07-14 10:42 | P.PN ---
Progress Note - Text Progress Note Date: 07/14/19 Interval History: Patient was seen today in group and was willing to speak to law writer in the off ce. Patient appeared to be tearful and claimed to have recurring thoughts about seeing a picture of her brother . Patient also spoke of the uncertainty of not knowing where she is going when she leaves the hospital. Patient claims that she used to be very "happy" and states that she misses her old self. Patient states that she is having some difficulty sleeping at night due to the recurring thoughts. She states that her anxiety is mildly improving. She states that she continues to have poor appetite and requests ensure for meals. At this time patient denies any suicidal or homical ideations, intent or plan. Patient denies any auditory, visual hallucinations and denies any paranoia or delusions. Patient denies any side effects from the medications and has been compliant with meds. Patient denies any shakes or tremors related to her withdrawal from alcohol. Mental Status Exam: General Appearance: [Patient appears to be stated age is alert, pleasant, and cooperative.] Patient was in a hospital gown this morning appeared to be tearful and poor hygiene and poor grooming. Behavior: [Patient is calmly seated without any agitated behavior.] Patient was tearful and appeared to be in moderate distress. Speech: Patient's speech is fluent and nonpressured. Mood/Affect: Patient reports their mood is "still bad", affect is congruent and constricted. Suicidality/Homicidality: Patient denies having any suicidal or homicidal ideation intent or plan. Perceptions: Patient denies any auditory or visual hallucinations. Though content/process: [There is no evidence of any delusional thought content and thought process is linear and goal-directed.] Memory and concentration: AOX3, grossly intact for the purposes of this session Judgment and insight: fair, improving Assessment Major depressive disorder, moderate-severe Alcohol use disorder, severe/ alcohol withdrawal Cannabis use disorder Nicotine use disorder PLAN: -Patient continues to meet criteria for inpatient psychiatric hospitalization for safety and stabilization of psychiatric symptoms. -Will increase Zoloft to 100 mg daily for mood and anxiety. Seroquel 200 mg daily at bedtime for irritability and mood stabilization, we will consider titrating off and replacing with either trazodone or mirtazapine to help with mood. -CIWA q8hr ordered for alcohol withdrawal. Tachycardia improved along with bl ood pressure. Patient placed on standing dose of Librium 25 mg 4 times a day, with specific instructions to hold for excess sedation. We'll likely decrease to 3 times a day tomorrow. -Ativan PRN for CIWA score greater than 10. Received 1 when necessary yesterday -thiamine, MVM for etoh use -NRT nicotine patch for tobacco cessation. -SW on board for discharge planning. Patient will likely need a new placement option.
[2019-07-14] MEDS: LORazepam 1 MG TAB PO PRN ×2 (10:51→21:00)
[2019-07-14] MEDS: QUEtiapine 200 MG TAB PO SCH (21:00)
[2019-07-15] MEDS: SERTRALINE 100 MG TAB PO SCH (09:42)
[2019-07-15] MEDS: NICOTINE 14MG/24HR PATCH TRANSDERM SCH (09:42)
[2019-07-15] MEDS: THIAMINE 100 MG TAB PO SCH (09:43)
[2019-07-15] MEDS: MULTIVITAMINS, THERA 1 EACH TAB PO SCH (09:43)
[2019-07-15] MEDS: chlordiazePOXIDE 25 MG CAP PO SCH ×3 (09:43→20:57)
[2019-07-15] MEDS: LORATADINE 10 MG TAB PO SCH (09:43)
[2019-07-15] MEDS: ASPIRIN 81 MG PO SCH (09:43)
[2019-07-15] MEDS: amLODIPine 10 MG TAB PO SCH (09:44)
[2019-07-15] MEDS: MINERAL OIL-WHITE PETROLATUM 120 GM JAR TOPICAL SCH ×2 (10:28→20:56)
--- NOTE | 2019-07-15 11:59 | P.PN ---
Progress Note - Text Progress Note Date: 07/15/19 Interval History: Patient was seen in her room sleeping however was calm and cooperative and agr eeable to speak to marine underwriter in the office. Patient continues to have a depressed affect and speaks softly during the interview. Patient was however not tearful today and stated that her mood is "a little better" and claimed that her anxiety is mildly improving as well. Patient claims that she is attempting to have the ensures 3 times a day however feels her appetite is still poor. Patient claims that she is still having nightmares about seeing her brother in the pictures. Patient claims that she has attempted to go to some groups however is reluctant to participate. At this time patient denies any suicidal or homical ideations, intent or plan. Patient denies any auditory, visual hallucinations and denies any paranoia or delusions. Patient denies any cravings from alcohol at this time denies any symptoms of DTs including seizures or tremors. Mental Status Exam: General Appearance: Patient appears to be stated age is alert, and cooperative. Patient was in her regular clothes this morning and continues to have poor hygiene and grooming. Behavior: Patient is calmly seated without any agitated behavior. Patient was not tearful this morning. Speech: Patient's speech is fluent and nonpressured. Mood/Affect: Patient reports their mood is "a little better", affect is congruent and constricted. Suicidality/Homicidality: Patient denies having any suicidal or homicidal id eation intent or plan. Perceptions: Patient denies any auditory or visual hallucinations. Though content/process: There is no evidence of any delusional thought content and thought process is linear and goal-directed. Memory and concentration: AOX3, grossly intact for the purposes of this session Judgment and insight: fair, improving Assessment Major depressive disorder, moderate-severe Alcohol use disorder, severe/ alcohol withdrawal Cannabis use disorder Nicotine use disorder PLAN: -Patient continues to meet criteria for inpatient psychiatric hospitalization for safety and stabilization of psychiatric symptoms. -Medications : Will continue with Zoloft to 150 mg daily for mood and anxiety. Seroquel to be titrated down slowly. We'll decrease to 150 mg daily at bedtime for irritability and mood stabilization, we will consider titrating off and replacing with either trazodone or mirtazapine to help with mood and appetite. Unsure as to reason why Seroquel was initially started on this patient as patient denies any symptoms of previous manic episodes. -CIWA q8hr ordered for alcohol withdrawal. Tachycardia improved along with blood pressure. We will decrease Librium 25 mg 3 times a day, with specific instructions to hold for excess sedation. -Ativan PRN for CIWA score greater than 10. -thiamine, MVM for etoh use -NRT nicotine patch for tobacco cessation. -SW on board for discharge planning. Patient will likely need a new placement option.
[2019-07-15] MEDS ORDERED: QUEtiapine 50 MG TAB PO SCH (21:00)
[2019-07-15] MEDS: LORazepam 1 MG TAB PO PRN (21:02)
[2019-07-16] MEDS: chlordiazePOXIDE 25 MG CAP PO SCH ×2 (09:14→20:59)
[2019-07-16] MEDS: amLODIPine 10 MG TAB PO SCH (09:14)
[2019-07-16] MEDS: ASPIRIN 81 MG PO SCH (09:14)
[2019-07-16] MEDS: MULTIVITAMINS, THERA 1 EACH TAB PO SCH (09:14)
[2019-07-16] MEDS: LORATADINE 10 MG TAB PO SCH (09:14)
[2019-07-16] MEDS: NICOTINE 14MG/24HR PATCH TRANSDERM SCH (09:14)
[2019-07-16] MEDS: SERTRALINE 100 MG TAB PO SCH (09:15)
[2019-07-16] MEDS: THIAMINE 100 MG TAB PO SCH (09:15)
[2019-07-16] MEDS: MINERAL OIL-WHITE PETROLATUM 120 GM JAR TOPICAL SCH ×2 (09:16→20:59)
--- NOTE | 2019-07-16 14:30 | P.PN ---
Progress Note - Text Progress Note Date: 07/16/19 Interval History: Patient was seen in her room this morning and was agreeable to speak to manual writer in the office. Patient appears to have a slow gait and has a soft tone and depressed affect. Patient was not tearful today however states that her mood is a "2 out of 10". She states that she is continuing to have intrusive thoughts about losing her brother. She states that her appetite is still poor and is trying to drink the insurers. When asked about attending groups, patient states that she has been trying to go to some groups but "all they do is play games". And states that she had a headache so she went to go lay down. She claims that her sleep is mildly improved overnight. At this time patient denies any suicidal or homical ideations, intent or plan. Patient denies any auditory, visual hallucinations and denies any paranoia or delusions. Patient denies any side effects from the medications and has been compliant with meds. Mental Status Exam: General Appearance: Patient appears to be stated age is alert, and cooperative. Patient was in her hospital gown and continues to have poor hygiene and grooming. Behavior: Patient is calmly seated without any agitated behavior. Patient was not tearful this morning. Speech: Patient's speech is fluent and nonpressured. Soft tone. Mood/Affect: Patient reports their mood is "down" "2 out of 10", affect is congruent and constricted. Suicidality/Homicidality: Patient denies having any suicidal or homicidal ideation intent or plan. Perceptions: Patient denies any auditory or visual hallucinations. Though content/process: There is no evidence of any delusional thought content and thought process is linear and goal-directed. Memory and concentration: AOX3, grossly intact for the purposes of this session Judgment and insight: fair, improving Assessment Major depressive disorder, moderate-severe Alcohol use disorder, severe/ alcohol withdrawal Cannabis use disorder Nicotine use disorder PLAN: -Patient continues to meet criteria for inpatient psychiatric hospitalization for safety and stabilization of psychiatric symptoms. -Medications : Will continue increasing Zoloft to 200 mg daily for mood and anxiety. Seroquel to be titrated down slowly. We'll decrease to 100 mg daily at bedtime for irritability and mood stabilization, we will consider titrating off and replacing with either trazodone or mirtazapine to help with mood and appetite. Unsure as to reason why Seroquel was initially started on this patient as patient denies any symptoms of previous manic episodes. -CIWA q8hr ordered for alcohol withdrawal. We will decrease Librium 25 mg 2 times a day, with specific instructions to hold for excess sedation. -Ativan PRN for CIWA score greater than 10. -thiamine, MVM for etoh use -NRT nicotine patch for tobacco cessation. -SW on board for discharge planning. Patient will likely need a new placement option.
[2019-07-16] MEDS: QUEtiapine 100 MG TAB PO SCH (20:59)
[2019-07-16] MEDS ORDERED: LOPERAMIDE 2 MG CAP PO PRN (22:01)
[2019-07-17] MEDS: MULTIVITAMINS, THERA 1 EACH TAB PO SCH (09:18)
[2019-07-17] MEDS: chlordiazePOXIDE 25 MG CAP PO SCH ×2 (09:18→20:02)
[2019-07-17] MEDS: amLODIPine 10 MG TAB PO SCH (09:18)
[2019-07-17] MEDS: LORATADINE 10 MG TAB PO SCH (09:18)
[2019-07-17] MEDS: ASPIRIN 81 MG PO SCH (09:18)
[2019-07-17] MEDS: SERTRALINE 100 MG TAB PO SCH (09:18)
[2019-07-17] MEDS: MINERAL OIL-WHITE PETROLATUM 120 GM JAR TOPICAL SCH ×2 (09:18→20:03)
[2019-07-17] MEDS: NICOTINE 14MG/24HR PATCH TRANSDERM SCH (09:19)
[2019-07-17] MEDS: THIAMINE 100 MG TAB PO SCH (09:22)
--- NOTE | 2019-07-17 18:54 | PN ---
PROGRESS NOTE DATE OF SERVICE: 07/17/2019. CHIEF COMPLAINT: The patient was depressed. She had suicide thoughts with a plan to overdose. She has had family stress issues. INTERVAL HISTORY: Patient has been doing fair. She had a quiet evening last night. She will come out in the day area. She tends to wander some, not clear she interacts too much with others. She says that she has not been sleeping well, though staff documented that she slept 6 hours last night. Today she has been up. She says that she attends groups, though she has not attended any groups today. Her CIWA scores today have been minimal. She says that overall her mood has improved. She says she has a better outlook. She has had some complaint of diarrhea. She tolerates her psychotropic medications. MENTAL STATUS: Patient sat without restlessness. She gave fairly good eye contact. Psychomotor activity was slowed. Speech was monotone and soft. She answered questions with brief responses. Her thoughts were clear. Her affect blunted. Her mood reserved. She seemed somewhat distressed. She had a worried manner. ASSESSMENT: I will continue the current diagnosis and treatment plan. I will continue psychotropic medications the same. I reviewed medication issues with the patient. We discussed withdrawal issues. She feels that she has been progressing. Vital signs have been stable. We will continue to focus on stabilization and discharge planning. PAWEL / MARCOS: [id number] /
[2019-07-17] MEDS: QUEtiapine 100 MG TAB PO SCH (20:02)
[2019-07-18] MEDS ORDERED: chlordiazePOXIDE 25 MG CAP PO ONE (09:00)
[2019-07-18] MEDS: THIAMINE 100 MG TAB PO SCH (09:24)
[2019-07-18] MEDS: amLODIPine 10 MG TAB PO SCH (09:24)
[2019-07-18] MEDS: LORATADINE 10 MG TAB PO SCH (09:24)
[2019-07-18] MEDS: MULTIVITAMINS, THERA 1 EACH TAB PO SCH (09:24)
[2019-07-18] MEDS: ASPIRIN 81 MG PO SCH (09:25)
[2019-07-18] MEDS: SERTRALINE 100 MG TAB PO SCH (09:25)
[2019-07-18] MEDS: NICOTINE 14MG/24HR PATCH TRANSDERM SCH (09:25)
[2019-07-18] MEDS: MINERAL OIL-WHITE PETROLATUM 120 GM JAR TOPICAL SCH ×2 (09:25→21:33)
[2019-07-18] MEDS: QUEtiapine 50 MG TAB PO SCH (13:53)
[2019-07-18] MEDS ORDERED: QUEtiapine 50 MG TAB PO ONE (15:00)
[2019-07-18] MEDS ORDERED: ZIPRASIDONE 60 MG CAP PO STA (15:05)
--- NOTE | 2019-07-18 19:26 | PN ---
PROGRESS NOTE DATE OF SERVICE: 07/18/2019. CHIEF COMPLAINT: The patient was depressed. She had suicide thoughts with a plan to overdose. She has had family stress issues. INTERVAL HISTORY: The patient has been doing fair. She continues to report depression. She had a quiet evening last night. She declined to attend groups yesterday. She said she slept fairly well today. She has been up. She comes out in the day area. She did not attend the morning group though did attend the 11 o'clock group. In that group she was described as follows: Bright, animated, spontaneous, attentive, concrete, initiates. Today, when I saw the patient, she said she was feeling comfortable when she was in group and then she said soon thereafter her mood went way down. She started feeling angry. She was quite distressed. She does not believe the Zoloft is helping her. She was quite insistent on making some medication change. She could not describe any precipitants for her mood going down. The patient herself says that she thinks the 200 mg of Seroquel had been better for her than the current dose of 100 mg. She tolerates psychotropic medications. MENTAL STATUS: Patient stood in the office. When offered a seat, she chose just to stand. She answered questions with 1 or 2 word responses. She did not say much. Her thoughts were clear. Her affect was intense. She seemed to have an anxious and angry manner. Her mood was depressed. She was moderately distressed. It was difficult to say if there was thought disorder. ASSESSMENT: I will continue the current diagnosis and treatment plan. I will continue Zoloft 200 mg a day. I reviewed treatment issues with the patient. At this point, I will add Seroquel 50 mg daily. It is noted that it was Dr. Gibson' intention to taper her off Seroquel altogether. At this point, however, she may need augmentation of Seroquel before we see much benefit from Zoloft. Also she likely may be in the midst of acute withdrawal both from alcohol and marijuana. Antidepressants are not likely to benefit her for the 1st month or more of withdrawal especially if she has been using chronically. Seroquel may be of benefit to reduce physiologic stress response relating to alcohol and marijuana withdrawal. I will have Dr. Camara review treatment issues on Friday. I did share with the patient that Dr. Camara may make a determination to continue tapering the Seroquel as was his original plan. We will continue to focus on stabilization and discharge planning. MMMAGDAL / IJN: [id number] /
[2019-07-18] MEDS: QUEtiapine 100 MG TAB PO SCH (21:34)
[2019-07-19] MEDS: QUEtiapine 100 MG TAB PO SCH (00:50)
[2019-07-19] MEDS: THIAMINE 100 MG TAB PO SCH (08:43)
[2019-07-19] MEDS: LORATADINE 10 MG TAB PO SCH (08:43)
[2019-07-19] MEDS: MULTIVITAMINS, THERA 1 EACH TAB PO SCH (08:43)
[2019-07-19] MEDS: amLODIPine 10 MG TAB PO SCH (08:43)
[2019-07-19] MEDS: ASPIRIN 81 MG PO SCH (08:43)
[2019-07-19] MEDS: NICOTINE 14MG/24HR PATCH TRANSDERM SCH (08:43)
[2019-07-19] MEDS: SERTRALINE 100 MG TAB PO SCH (08:43)
[2019-07-19] MEDS: QUEtiapine 50 MG TAB PO SCH (08:43)
[2019-07-19] MEDS: MINERAL OIL-WHITE PETROLATUM 120 GM JAR TOPICAL SCH ×2 (08:44→20:58)
[2019-07-19] MEDS ORDERED: chlordiazePOXIDE 25 MG CAP PO ONE (09:00)
[2019-07-19] MEDS: LORazepam 1 MG TAB PO PRN (12:05)
[2019-07-19] MEDS ORDERED: clonazePAM 0.5 MG TAB PO SCH (13:30)
--- NOTE | 2019-07-19 14:14 | P.PN ---
Progress Note - Text Progress Note Date: 07/19/19 Interval History: Patient was seen today after her lunch as she was talking with another patient in the lunchroom and was agreeable to speak to feature writer in the office. Patient appears to have a slightly brighter affect today and was more communicative and directable/cooperative. Patient states that her mood is improving and is now a 5 out of 10 compared to a 1 out of 10 on admission. She states that she feels the Zoloft is helping her mildly however taking time for her to work. She claims that she is sorry for the incident which occurred over the weekend and felt that she had a bad day. Patient also spoke about the Ativan medication which she received made her feel "calm". Patient claims that she still feels anxious at this time and asked to be put on a medication for anxiety. She states that her sleep is gradually improving and claims that she is on board with continuing to discontinue Seroquel. She states her energy and appetite are gradually improving. At this time patient denies any suicidal or homical ideations, intent or plan. Patient denies any auditory, visual hallucinations and denies any paranoia or delusions. Patient denies any side effects from the medications and has been compliant with meds. Mental Status Exam: General Appearance: Patient appears to be stated age is alert, and cooperative. Patient was in her hospital gown and continues to have poor hygiene and grooming. Behavior: Patient is calmly seated without any agitated behavior. Patient was no t tearful today. Speech: Patient's speech is fluent and nonpressured. Soft tone. Mood/Affect: Patient reports their mood is "5 out of 10", affect is congruent and constricted. Suicidality/Homicidality: Patient denies having any suicidal or homicidal ideation intent or plan. Perceptions: Patient denies any auditory or visual hallucinations. Though content/process: There is no evidence of any delusional thought content and thought process is linear and goal-directed. Memory and concentration: AOX3, grossly intact for the purposes of this session Judgment and insight: fair, improving Assessment Major depressive disorder, moderate-severe Anxiety disorder unspecified. Alcohol use disorder, severe/ alcohol withdrawal Cannabis use disorder Nicotine use disorder PLAN: -Patient continues to meet criteria for inpatient psychiatric hospitalization for safety and stabilization of psychiatric symptoms. -Medications : Will continue with Zoloft 200 mg daily for mood and anxiety. Seroquel to be discontinued tonight. I added melatonin 3 mg daily at bedtime for sleep. We will consider replacing with either trazodone or mirtazapine to help with mood and appetite. -Spoke with patient about different antianxiety medications and patient claimed that Ativan has helped her in the past and elected to try Klonopin at this time. Patient will be started on 0.25 mg 3 times a day for anxiety with 1 dose of 50mg now. -CIWA discontinued at this time and Librium was tapered off. -thiamine, MVM for etoh use -NRT nicotine patch for tobacco cessation. -SW on board for discharge planning. Patient will likely need a new placement option.
[2019-07-19] MEDS: clonazePAM 0.5 MG TAB PO SCH (20:56)
[2019-07-19] MEDS: MELATONIN 3 MG TABLET PO SCH (20:56)
[2019-07-19] MEDS ORDERED: QUEtiapine 50 MG TAB PO SCH (21:00)
[2019-07-19] MEDS: ZIPRASIDONE 20 MG VIAL IM PRN (23:45)
[2019-07-20] MEDS: MINERAL OIL-WHITE PETROLATUM 120 GM JAR TOPICAL SCH ×2 (08:44→22:20)
[2019-07-20] MEDS: ASPIRIN 81 MG PO SCH (08:45)
[2019-07-20] MEDS: clonazePAM 0.5 MG TAB PO SCH (08:45)
[2019-07-20] MEDS: NICOTINE 14MG/24HR PATCH TRANSDERM SCH (08:45)
[2019-07-20] MEDS: MULTIVITAMINS, THERA 1 EACH TAB PO SCH (08:45)
[2019-07-20] MEDS: amLODIPine 10 MG TAB PO SCH (08:46)
[2019-07-20] MEDS: THIAMINE 100 MG TAB PO SCH (08:46)
[2019-07-20] MEDS: LORATADINE 10 MG TAB PO SCH (08:46)
[2019-07-20] MEDS: SERTRALINE 100 MG TAB PO SCH (08:46)
[2019-07-20] MEDS ORDERED: clonazePAM 0.5 MG TAB PO STA (09:16)
--- NOTE | 2019-07-20 10:06 | P.PN ---
Progress Note - Text Progress Note Date: 07/20/19 Interval History: Patient was seen in the dining tran today finishing up her breakfast and was a greeable to speak to screen writer in the office. Patient appeared to be more animated and brighter affect today. Patient states that she has been trying to socialize with other people on the unit and claims that she is getting along well with him and trying to go to groups. Patient claims that her mood is gradually improving and states that it is approximately a "6 out of 10"and admits that there is good progress in the right direction. Patient spoke about [facility]. She spoke of feeling somewhat irritable and anxious throughout the day and states that the Klonopin did help a little bit yesterday. Patient also claims that her sleep needs some improvement as she was finding it difficult to sleep last night. At this time patient denies any suicidal or homical ideations, intent or plan. Patient denies any auditory, visual hallucinations and denies any paranoia or delusions. Patient denies any side effects from the medications and has been compliant with meds. Mental Status Exam: General Appearance: Patient appears to be stated age is alert, and cooperative. Patient was in her regular clothing and has improved hygiene and grooming. Behavior: Patient is calmly seated without any agitated behavior. Patient was not tearful today. Speech: Patient's speech is fluent and nonpressured. Mood/Affect: Patient reports their mood is "6 out of 10", affect is congruent and constricted. Suicidality/Homicidality: Patient denies having any suicidal or homicidal ideation intent or plan. Perceptions: Patient denies any auditory or visual hallucinations. Though content/process: There is no evidence of any delusional thought content and thought process is linear and goal-directed. Memory and concentration: AOX3, grossly intact for the purposes of this session Judgment and insight: fair, improving Assessment Major depressive disorder, moderate-severe Anxiety disorder unspecified. Alcohol use disorder, severe/ alcohol withdrawal Cannabis use disorder Nicotine use disorder PLAN: -Patient continues to meet criteria for inpatient psychiatric hospitalization for safety and stabilization of psychiatric symptoms. -Medications : Will continue with Zoloft 200 mg daily for mood and anxiety. Continue with melatonin 3 mg daily at bedtime for sleep. Added trazodone 50 mg daily at bedtime for insomnia and mood. -Spoke with patient about different anti-anxiety medications and patient claimed that Ativan has helped her in the past and elected to try Klonopin at this time. Increase Klonopin to 0.5 mg daily for anxiety. -thiamine, MVM for etoh use -NRT nicotine patch for tobacco cessation. -SW on board for discharge planning. [facility].
[2019-07-20] MEDS: ZIPRASIDONE 20 MG VIAL IM PRN (14:22)
[2019-07-20] MEDS: MELATONIN 3 MG TABLET PO SCH (20:17)
[2019-07-20] MEDS ORDERED: traZODone HCL 50 MG TAB PO SCH (21:00)
[2019-07-21] MEDS: SERTRALINE 100 MG TAB PO SCH (07:57)
[2019-07-21] MEDS: MULTIVITAMINS, THERA 1 EACH TAB PO SCH (07:57)
[2019-07-21] MEDS: THIAMINE 100 MG TAB PO SCH (07:57)
[2019-07-21] MEDS: LORATADINE 10 MG TAB PO SCH (07:57)
[2019-07-21] MEDS: amLODIPine 10 MG TAB PO SCH (07:57)
[2019-07-21] MEDS: ASPIRIN 81 MG PO SCH (07:57)
[2019-07-21] MEDS: NICOTINE 14MG/24HR PATCH TRANSDERM SCH (07:57)
[2019-07-21] MEDS: clonazePAM 0.5 MG TAB PO SCH (07:57)
[2019-07-21] MEDS: MINERAL OIL-WHITE PETROLATUM 120 GM JAR TOPICAL SCH ×2 (07:59→21:00)
--- NOTE | 2019-07-21 09:48 | P.PN ---
Progress Note - Text Progress Note Date: 07/21/19 Interval History: Patient was seen in the hallways and was agreeable to speak to promotion writer in the o ffice. Patient states that her anxiety is gradually improving along with her mood. She states that she feels a lot less depressed than when she came in to the hospital. She does however claimed that she has felt irritable and has poor coping skills and describes an incident which occurred yesterday where she lashed out at a staff member as he said something and passing about relatives and she states that she took it personally and got kicked out of the group and had to get a shot for agitation. Patient claims that her sleep is still poor however is improving and states that she only had one awakening last night however had difficulty initiating sleep. Patient claims that she is attempting to go to groups and working on her coping skills. Patient also states that she spoke with her daughter yesterday over the phone who patient claims that she gives her "a reason to live and do better for myself". At this time patient denies any suicidal or homical ideations, intent or plan. Patient denies any auditory, visual hallucinations and denies any paranoia or delusions. Patient denies any side effects from the medications and has been compliant with meds. Mental Status Exam: General Appearance: Patient appears to be stated age is alert, and directable. Patient was in her regular clothing and has improved hygiene and grooming. Behavior: Patient is calmly seated without any agitated behavior. Patient was not tearful today. Speech: Patient's speech is fluent and nonpressured. Mood/Affect: Patient reports their mood is "better", affect is congruent and constricted. Suicidality/Homicidality: Patient denies having any suicidal or homicidal ideation intent or plan. Perceptions: Patient denies any auditory or visual hallucinations. Though content/process: There is no evidence of any delusional thought content and thought process is linear and goal-directed. Memory and concentration: AOX3, grossly intact for the purposes of this session Judgment and insight: fair, improving Assessment Major depressive disorder, moderate-severe Anxiety disorder unspecified. Alcohol use disorder, severe/ alcohol withdrawal Cannabis use disorder Nicotine use disorder PLAN: -Patient continues to meet criteria for inpatient psychiatric hospitalization for safety and stabilization of psychiatric symptoms. -Medications : Will continue with Zoloft 200 mg daily for mood and anxiety. Continue with melatonin 3 mg daily at bedtime for sleep. Increase trazodone to 75 mg daily at bedtime for insomnia and mood. -Will continue with Klonopin to 0.5 mg daily for anxiety. -thiamine, MVM for etoh use -NRT nicotine patch for tobacco cessation. -SW on board for discharge planning. [facility]. Likely discharge by the end of the week.
[2019-07-21 10:49] VITALS: BMI 21.9
[2019-07-21] MEDS: MAG HYDROX/AL HYDROX/SIMETH 30 ML CUP PO PRN (18:32)
[2019-07-21] MEDS: traZODone HCL 50 MG TAB PO SCH (21:00)
[2019-07-21] MEDS: MELATONIN 3 MG TABLET PO SCH (21:00)
[2019-07-22] MEDS: MULTIVITAMINS, THERA 1 EACH TAB PO SCH (08:45)
[2019-07-22] MEDS: amLODIPine 10 MG TAB PO SCH (08:45)
[2019-07-22] MEDS: ASPIRIN 81 MG PO SCH (08:45)
[2019-07-22] MEDS: clonazePAM 0.5 MG TAB PO SCH (08:45)
[2019-07-22] MEDS: SERTRALINE 100 MG TAB PO SCH (08:45)
[2019-07-22] MEDS: NICOTINE 14MG/24HR PATCH TRANSDERM SCH (08:45)
[2019-07-22] MEDS: LORATADINE 10 MG TAB PO SCH (08:45)
[2019-07-22] MEDS: THIAMINE 100 MG TAB PO SCH (08:46)
[2019-07-22] MEDS: MINERAL OIL-WHITE PETROLATUM 120 GM JAR TOPICAL SCH ×2 (08:46→20:07)
[2019-07-22] MEDS ORDERED: clonazePAM 0.5 MG TAB PO STA (09:05)
--- NOTE | 2019-07-22 09:16 | P.PN ---
Progress Note - Text Progress Note Date: 07/22/19 Interval History: Patient was seen wandering the hallways this morning before going to eat break fast and was agreeable to speak to read her in the office. Patient appears to have a brighter affect this morning and appears to be more talkative. She states that she is feeling "better now" and states that she is getting along with most people on the unit. She claims that she is going to groups. Patient did state that one of the other patients who she thought was her friend and was getting along with her, decided to curse and call her names yesterday however patient demonstrated better coping skills by walking away from the problem and not saying anything. Patient was encouraged to continue working on these coping skills and avoid these types of situations with others and was applauded for her choice not to make that situation worse. Patient claims that she slept much better last night, and feels rested this morning. Patient claims that she is feeling somewhat anxious about tomorrow as she is being discharged. Patient claims that her dose of Klonopin is too low at this time and states that she was taking 1 mg in the past which had better benefit for her. It was discussed with patient the risks of confusion/sedation with the increase in Klonopin however patient states that she would like to try the increase today. She states her energy level and appetite are fair. At this time patient denies any suicidal or homical ideations, intent or plan. Patient denies any auditory, visual hallucinations and denies any paranoia or delusions. Patient denies any side effects from the medications and has been compliant with meds. Mental Status Exam: General Appearance: Patient appears to be stated age is alert, and directable. Patient was in hospital gown and has improved hygiene and grooming. Behavior: Patient is calmly seated without any agitated behavior. Patient appea red to have a brighter affect this morning. Speech: Patient's speech is fluent and nonpressured. Mood/Affect: Patient reports their mood is "better now", affect is congruent Suicidality/Homicidality: Patient denies having any suicidal or homicidal ideation intent or plan. Perceptions: Patient denies any auditory or visual hallucinations. Though content/process: There is no evidence of any delusional thought content and thought process is linear and goal-directed. Memory and concentration: AOX3, grossly intact for the purposes of this session Judgment and insight: fair, improving Assessment Major depressive disorder, moderate-severe Anxiety disorder unspecified. Alcohol use disorder, severe/ alcohol withdrawal Cannabis use disorder Nicotine use disorder PLAN: -Patient continues to meet criteria for inpatient psychiatric hospitalization for safety and stabilization of psychiatric symptoms. -Medications : Will continue with Zoloft 200 mg daily for mood and anxiety. Continue with melatonin 3 mg daily at bedtime for sleep. Continue with trazodone to 75 mg daily at bedtime for insomnia and mood. -Will increase Klonopin to 1 mg mg daily for anxiety. -thiamine, MVM for etoh use -NRT nicotine patch for tobacco cessation. -SW on board for discharge planning. Patient wants to return to [facility] upon discharge. Likely discharge tomorrow.
[2019-07-22] MEDS: traZODone HCL 50 MG TAB PO SCH (20:06)
[2019-07-22] MEDS: MELATONIN 3 MG TABLET PO SCH (20:06)
[2019-07-23 06:40] VITALS: BP 118/58; PULSE 74; RESP 18; TEMP 97.6
[2019-07-23] MEDS: amLODIPine 10 MG TAB PO SCH (08:58)
[2019-07-23] MEDS: LORATADINE 10 MG TAB PO SCH (08:58)
[2019-07-23] MEDS: clonazePAM 0.5 MG TAB PO SCH (08:58)
[2019-07-23] MEDS: NICOTINE 14MG/24HR PATCH TRANSDERM SCH (08:58)
[2019-07-23] MEDS: ASPIRIN 81 MG PO SCH (08:58)
[2019-07-23] MEDS: MINERAL OIL-WHITE PETROLATUM 120 GM JAR TOPICAL SCH (08:59)
[2019-07-23] MEDS: SERTRALINE 100 MG TAB PO SCH (08:59)
[2019-07-23] MEDS: THIAMINE 100 MG TAB PO SCH (08:59)
[2019-07-23] MEDS: MULTIVITAMINS, THERA 1 EACH TAB PO SCH (08:59)
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
== END 2019-07-23 13:58 | disposition home or self-care (01) | DRG 885 ==
LOC: EC 10:44 → 3MHU 18:33
PROVIDERS: ADMIT Psychiatry & Neurology Psychiatry; ATTEND Psychiatry & Neurology Psychiatry
DX: F32.2 Major depressive disorder, single episode, severe without psychotic features (principal); F10.239 Alcohol dependence with withdrawal, unspecified; F17.210 Nicotine dependence, cigarettes, uncomplicated; F41.9 Anxiety disorder, unspecified; G47.00 Insomnia, unspecified; G70.00 Myasthenia gravis without (acute) exacerbation; I10 Essential (primary) hypertension; F14.10 Cocaine abuse, uncomplicated; J44.9 Chronic obstructive pulmonary disease, unspecified; Z59.0 Homelessness; Z79.82 Long term (current) use of aspirin; Z79.899 Other long term (current) drug therapy; Z88.6 Allergy status to analgesic agent
CPT/HCPCS: 80053; 80061; 80306; 82075; 83036; 84443; 85025; 99285

== ENCOUNTER 2019-09-07 07:41 | Emergency (ER) | payer MEDICARE, OTHER ==
[2019-09-07] MEDS ORDERED: ONDANSETRON 4 MG/2 ML VIAL IVP STA (08:04)
[2019-09-07] MEDS ORDERED: SODIUM CHLORIDE 0.9% 500 ML 500 ML IV STA (08:04)
[2019-09-07] MEDS ORDERED: SODIUM CHLORIDE 0.9% 1,000 ML IV STA (08:04)
--- NOTE | 2019-09-07 09:51 | ED ---
General Adult HPI - General Chief complaint: Nausea/Vomiting/Diarrhea Stated complaint: Vomiting/nausea Time Seen by Provider: 09/07/19 07:45 Source: patient, EMS, RN notes reviewed Mode of arrival: EMS Limitations: no limitations - History of Present Illness Initial comments: This is a 59-year-old female comes into the emergency Department complaining that she is withdrawing from alcohol. Patient states she last drank last evening but she normally would've started drinking already today but she hasn't consumed like to quit. Patient states [facility] turned her down for admission rehabilitation. Patient states she's been vomiting for the last couple of hours which can't keep any food down. Patient denies any abdominal pain patient denies any diarrhea. Patient denies any fever chills or cough. Patient denies headache patient denies numbness weakness. Patient denies chest pain difficulty breathing shortness of breath. - Related Data Home Medications Medication Instructions Recorded Confirmed Aspirin 325 mg PO DAILY 09/07/19 09/07/19 Loratadine [Claritin] 10 mg PO DAILY PRN 09/07/19 09/07/19 Multivitamins, Thera [Multivitamin 1 tab PO DAILY 09/07/19 09/07/19 (formulary)] clonazePAM [KlonoPIN] 1 mg PO DAILY 09/07/19 09/07/19 Previous Rx's Medication Instructions Recorded Albuterol Inhaler [Ventolin Hfa 2 puff INHALATION RT-Q6H PRN puff 07/23/19 Inhaler] Colloidal Oatmeal [Eucerin Eczema 1 applic TOPICAL BID #1 cream..g. 07/23/19 Relief] Melatonin 3 mg PO HS #14 tablet 07/23/19 Sertraline [Zoloft] 200 mg PO DAILY #14 tab 07/23/19 Thiamine [Vitamin B-1] 100 mg PO DAILY #14 tab 07/23/19 amLODIPine [Norvasc] 10 mg PO DAILY #14 tab 07/23/19 traZODone HCL [Desyrel] 100 mg PO HS #14 tab 07/23/19 Allergies Allergy/AdvReac Type Severity Reaction Status Date / Time ibuprofen [From Motrin] Allergy Itching,VOM Verified 09/07/19 08:30 ITING Review of Systems ROS Statement: Those systems with pertinent positive or pertinent negative responses have been documented in the HPI. ROS Other: All systems not noted in ROS Statement are negative. Past Medical History Past Medical History: COPD, Hypertension, Thyroid Disorder History of Any Multi-Drug Resistant Organisms: None Reported Past Surgical History: No Surgical Hx Reported Additional Past Surgical History / Comment(s): myasthenia gravis Past Anesthesia/Blood Transfusion Reactions: No Reported Reaction Past Psychological History: Anxiety, Bipolar, Depression Smoking Status: Current every day smoker Past Alcohol Use History: None Reported, Occasional Past Drug Use History: Marijuana - Past Family History Father History Unknown: Yes Mother History Unknown: Yes Sister(s) History Unknown: Yes Brother(s) History Unknown: Yes Daughter(s) Family Medical History: No Reported History Son(s) Family Medical History: No Reported History General Exam - General Exam Comments Initial Comments: GENERAL: Patient is well-developed and well-nourished. Patient is nontoxic and well- hydrated and is in mild distress. ENT: Neck is soft and supple. No significant lymphadenopathy is noted. Oropharynx is clear. Moist mucous membranes. Neck has full range of motion without eliciting any pain. EYES: The sclera were anicteric and conjunctiva were pink and moist. Extraocular movements were intact and pupils were equal round and reactive to light. Eyelids were unremarkable. PULMONARY: Unlabored respirations. Good breath sounds bilaterally. No audible rales rhonchi or wheezing was noted. CARDIOVASCULAR: There is a regular rate and rhythm without any murmurs gallops or rubs. ABDOMEN: Soft and nontender with normal bowel sounds. SKIN: Skin is clear with no lesions or rashes and otherwise unremarkable. NEUROLOGIC: Patient is alert and oriented x3. Cranial nerves II through XII are grossly intact. Motor and sensory are also intact. Normal speech, volume and content. Symmetrical smile. MUSCULOSKELETAL: Normal extremities with adequate strength and full range of motion. LYMPHATICS: No significant lymphadenopathy is noted PSYCHIATRIC: Normal psychiatric evaluation. Limitations: no limitations Course Vital Signs 09/07/19 09/07/19 09/07/19 07:44 07:46 08:00 Temperature 98.0 F Pulse Rate 100 104 H 107 H Respiratory 22 12 17 Rate Blood Pressure 171/114 171/114 O2 Sat by Pulse 99 98 98 Oximetry 09/07/19 09/07/19 09:09 10:00 Temperature Pulse Rate 101 H 111 H Respiratory 22 18 Rate Blood Pressure 153/115 152/93 O2 Sat by Pulse 101 H 83 L Oximetry Medical Decision Making - Medical Decision Making EKG shows a sinus tachycardia 101 bpm KS interval 120 QRS 76 QT interval 362 QTC is 469. Patient's EKG shows no ST segment elevation or depression or T wave abnormalities are noted. Patient received fluids and Zofran magnesium and Ativan in the emergency department. Patient states she'll follow-up at [facility] today. - Lab Data Result diagrams: 09/07/19 10:00 09/07/19 10:00 Lab Results 09/07/19 09/07/19 Range/Units 10:00 10:00 WBC 8.0 (3.8-10.6) k/uL RBC 4.51 (3.80-5.40) m/uL Hgb 14.7 (11.4-16.0) gm/dL Hct 43.5 (34.0-46.0) % MCV 96.6 (80.0-100.0) fL MCH 32.7 (25.0-35.0) pg MCHC 33.8 (31.0-37.0) g/dL RDW 14.3 (11.5-15.5) % Plt Count 257 (150-450) k/uL Neutrophils % 79 % Lymphocytes % 12 % Monocytes % 6 % Eosinophils % 0 % Basophils % 1 % Neutrophils # 6.3 (1.3-7.7) k/uL Lymphocytes # 1.0 (1.0-4.8) k/uL Monocytes # 0.5 (0-1.0) k/uL Eosinophils # 0.0 (0-0.7) k/uL Basophils # 0.1 (0-0.2) k/uL Sodium 146 H (137-145) mmol/L Potassium 3.6 (3.5-5.1) mmol/L Chloride 106 (98-107) mmol/L Carbon Dioxide 29 (22-30) mmol/L Anion Gap 11 mmol/L BUN 7 (7-17) mg/dL Creatinine 0.57 (0.52-1.04) mg/dL Est GFR (CKD-EPI)AfAm >90 (>60 ml/min/1.73 sqM) Est GFR (CKD-EPI)NonAf >90 (>60 ml/min/1.73 sqM) Glucose 98 (74-99) mg/dL Calcium 9.0 (8.4-10.2) mg/dL Magnesium 1.0 L (1.6-2.3) mg/dL Total Bilirubin 0.4 (0.2-1.3) mg/dL AST 55 H (14-36) U/L ALT 31 (9-52) U/L Alkaline Phosphatase 154 H (38-126) U/L Total Protein 7.8 (6.3-8.2) g/dL Albumin 4.0 (3.5-5.0) g/dL Amylase 171 H (30-110) U/L Lipase 125 (23-300) U/L Serum Alcohol 38 mg/dL Disposition Clinical Impression: Alcohol withdrawal, Alcoholism Disposition: HOME SELF-CARE Condition: Good Instructions (If sedation given, give patient instructions): Alcohol Withdrawal (ED) Is patient prescribed a controlled substance at d/c from ED?: No Referrals: [facility] [Primary Care Provider] - 1-2 days Time of Disposition: 11:39
[2019-09-07 10:23] VITALS: RESP 18
[2019-09-07 11:10] LABS: Basophils # (A) 0.1 k/uL (0-0.2); Basophils % (A) 1 %; Eosinophils % (A) 0 %; HCT 43.5 % (34.0-46.0); HGB 14.7 gm/dL (11.4-16.0); Lymphocytes % (A) 12 %; MCH 32.7 pg (25.0-35.0); MCHC 33.8 g/dL (31.0-37.0); MCV 96.6 fL (80.0-100.0); Monocytes # (A) 0.5 k/uL (0-1.0); Monocytes % (A) 6 %; Neutrophils # (A) 6.3 k/uL (1.3-7.7); Neutrophils % (A) 79 %; Platelet Count 257 k/uL (150-450); RBC 4.51 m/uL (3.80-5.40); RDW 14.3 % (11.5-15.5)
[2019-09-07 11:12] LABS: ALT 31 U/L (9-52); AST 55 U/L (14-36); African American GFR (CKD) >90 (>60 ml/min/1.73 sqM); Alcohol 38 mg/dL; Alkaline Phosphatase 154 U/L (38-126); Amylase 171 U/L (30-110); Anion Gap 11 mmol/L; Blood Urea Nitrogen 7 mg/dL (7-17); Carbon Dioxide 29 mmol/L (22-30); Chloride 106 mmol/L (98-107); Glucose 98 mg/dL (74-99); Potassium 3.6 mmol/L (3.5-5.1); Sodium 146 mmol/L (137-145); Total Bilirubin 0.4 mg/dL (0.2-1.3); Total Protein 7.8 g/dL (6.3-8.2)
[2019-09-07] MEDS ORDERED: MAGNESIUM SULFATE-D5W PMX 1 GM in DEXTROSE/WATER 1 100ML.BAG IVPB ONE (11:30)
[2019-09-07] MEDS ORDERED: LORazepam 2 MG/ML INJ IV STA (11:31)
[2019-09-07] MEDS ORDERED: ONDANSETRON 4 MG ODT STARTER PACK 2 TAB BTL PO STA (11:40)
[2019-09-07 11:52] VITALS: PULSE 99
[2019-09-07 13:17] VITALS: BP 147/89; TEMP 98.8
[2019-09-07 18:54] LABS: Urine Alcohol Positive (Negative); Urine Barbiturate Negative (Negative); Urine Cocaine Negative (Negative); Urine Methadone Negative (Negative); Urine Opiates Negative (Negative); Urine Phencyclidine Negative (Negative)
== END 2019-09-07 13:17 | disposition home or self-care (01) ==
LOC: CATHCVL 07:41
DX: F10.239 Alcohol dependence with withdrawal, unspecified (principal); R00.0 Tachycardia, unspecified; F17.200 Nicotine dependence, unspecified, uncomplicated; I10 Essential (primary) hypertension; Z79.899 Other long term (current) drug therapy; Z79.82 Long term (current) use of aspirin; Z88.6 Allergy status to analgesic agent
CPT/HCPCS: 93005; 36410; 76937; 80053; 82150; 83690; 83735; 85025; 80306; 99285; 96365; 96375 ×2; 96361; G0480; J2060; J2405; J3475; S0119; 80320

== ENCOUNTER 2019-10-12 15:41 | Emergency (ER) | payer MEDICARE, OTHER ==
[2019-10-12] MEDS ORDERED: ASPIRIN 81 MG PO STA (15:56)
[2019-10-12] MEDS ORDERED: SODIUM CHLORIDE 0.9% 1,000 ML IV STA (15:56)
[2019-10-12] MEDS ORDERED: MORPHINE SULFATE 2 MG/ML SYRINGE IVP STA (15:56)
[2019-10-12 17:41] LABS: Basophils # (A) 0.2 k/uL (0-0.2); Basophils % (A) 2 %; Eosinophils # (A) 0.3 k/uL (0-0.7); Eosinophils % (A) 3 %; HCT 45.2 % (34.0-46.0); HGB 14.8 gm/dL (11.4-16.0); Lymphocytes # (A) 2.8 k/uL (1.0-4.8); Lymphocytes % (A) 30 %; MCH 30.6 pg (25.0-35.0); MCHC 32.9 g/dL (31.0-37.0); Mean Platelet Volume 7.7; Monocytes # (A) 0.4 k/uL (0-1.0); Monocytes % (A) 4 %; Neutrophils # (A) 5.4 k/uL (1.3-7.7); Neutrophils % (A) 59 %; Platelet Count 361 k/uL (150-450); RBC 4.86 m/uL (3.80-5.40); WBC 9.2 k/uL (3.8-10.6)
[2019-10-12 17:45] LABS: INR 0.9 (<1.2); Prothrombin Time 10.2 sec (9.0-12.0)
[2019-10-12 17:49] LABS: ALT 28 U/L (9-52); AST 41 U/L (14-36); African American GFR (CKD) >90 (>60 ml/min/1.73 sqM); Albumin 4.5 g/dL (3.5-5.0); Alkaline Phosphatase 133 U/L (38-126); Anion Gap 13 mmol/L; Blood Urea Nitrogen 11 mg/dL (7-17); Calcium 9.8 mg/dL (8.4-10.2); Carbon Dioxide 25 mmol/L (22-30); Chloride 106 mmol/L (98-107); Glucose 103 mg/dL (74-99); Magnesium 1.6 mg/dL (1.6-2.3); Potassium 3.8 mmol/L (3.5-5.1); Sodium 144 mmol/L (137-145); Total Bilirubin 0.3 mg/dL (0.2-1.3); Total Protein 8.8 g/dL (6.3-8.2)
--- NOTE | 2019-10-12 19:06 | CT ---
EXAMINATION TYPE: CT chest angio for PE contrast and with 3-D reconstruction renderings DATE OF EXAM: 10/12/2019 COMPARISON: None HISTORY: Chest and back pain CT DLP: 196.3 mGycm Automated exposure control for dose reduction was used. CONTRAST: CT Chest for pulmonary embolism performed with with IV Contrast, patient injected with 100 mL of Isovue 370. Three-D reconstructions FINDINGS: LUNGS AND PLEURAL SPACES: The airways are unremarkable.There is evidence of hyperinflation and there is a subtle scattered bilateral pulmonary groundglass opacity pattern noted within the upper lung zon es, of doubtful clinical significance. There is no gravity dependence to this finding. There are no p ulmonary consolidative opacities or nodules. The pleural spaces are negative. MEDIASTINUM: There is satisfactory enhancement of the pulmonary artery and its branches, there is no CT evidence for pulmonary embolism. No acute aortic process. No cardiomegaly or pericardial effusion on the left and right coronary calcifications are appreciated. No adenopathy. OTHER: The liver contour shows evidence suggesting nodularity, a nonspecific finding. IMPRESSION: 1. No definite acute process. 2. Coronary calcifications noted. 3. Liver contour suggests nodularity.
[2019-10-12 19:26] VITALS: BP 151/101; PULSE 93; RESP 17; TEMP 98.8
[2019-10-12] MEDS ORDERED: ACET/COD 300 MG/30 MG STARTER PACK 6 TAB BTL PO STA (19:26)
[2019-10-12] MEDS ORDERED: predniSONE 50 MG TAB PO STA (19:26)
--- NOTE | 2019-10-12 19:27 | ED ---
General Adult HPI - General Source: patient, RN notes reviewed, old records reviewed Mode of arrival: wheelchair Limitations: no limitations <Ted Arboleda - Last Filed: 10/12/19 19:24> <Brenna Neville - Last Filed: 10/14/19 01:01> - General Chief complaint: Back Pain/Injury Stated complaint: Back pain goes around to shoulders Time Seen by Provider: 10/12/19 15:48 - History of Present Illness Initial comments: 59-year-old female patient past medical history of hypertension COPD presents ED chief complaint of a week of cough, midthoracic back pain, bilateral parasternal chest pain. Patient was that she has had some mild shortness of breath while coughing. She reports that she was recently seen at another facility yesterday where she was discharged from the emergency department. Denies any other compla ints today. Systemic: Pt denies fatigue, fever/chills, rash. Pt denies weakness, night sweats, weight loss. Neuro: Pt denies headache, visual disturbances, syncope or pre-syncope. HEENT: Pt denies ocular discharge or irritation, otalgia, rhinorrhea, pharyngitis or notable lymphadenopathy. Cardiopulmonary: Pt denies heart palpitations, dyspnea on exertion. Abdominal/GI: Pt denies abdominal pain, n/v/d. : Pt denies dysuria, burning w/ urination, frequency/urgency. Denies new onset urinary or bowel incontinence. MSK: Pt denies myalgia, loss of strength or function in extremities. Neuro: Pt denies new onset weakness, paresthesias. (Ted Arboleda) - Related Data Home Medications Medication Instructions Recorded Confirmed Aspirin 325 mg PO DAILY 09/07/19 09/07/19 Loratadine [Claritin] 10 mg PO DAILY PRN 09/07/19 09/07/19 Multivitamins, Thera [Multivitamin 1 tab PO DAILY 09/07/19 09/07/19 (formulary)] clonazePAM [KlonoPIN] 1 mg PO DAILY 09/07/19 09/07/19 Previous Rx's Medication Instructions Recorded Albuterol Inhaler [Ventolin Hfa 2 puff INHALATION RT-Q6H PRN puff 07/23/19 Inhaler] Colloidal Oatmeal [Eucerin Eczema 1 applic TOPICAL BID #1 cream..g. 07/23/19 Relief] Melatonin 3 mg PO HS #14 tablet 07/23/19 Sertraline [Zoloft] 200 mg PO DAILY #14 tab 07/23/19 Thiamine [Vitamin B-1] 100 mg PO DAILY #14 tab 07/23/19 amLODIPine [Norvasc] 10 mg PO DAILY #14 tab 07/23/19 traZODone HCL [Desyrel] 100 mg PO HS #14 tab 07/23/19 Albuterol Inhaler [Ventolin Hfa 1 - 2 puff INHALATION Q4-6H PRN #1 10/12/19 Inhaler] inhaler predniSONE 50 mg PO DAILY #4 tab 10/12/19 Allergies Allergy/AdvReac Type Severity Reaction Status Date / Time ibuprofen [From Motrin] Allergy Itching,VOM Verified 10/12/19 15:48 ITING Review of Systems ROS Other: All systems not noted in ROS Statement are negative. <Tde Arboleda - Last Filed: 10/12/19 19:24> ROS Other: All systems not noted in ROS Statement are negative. <Brenna Neville - Last Filed: 10/14/19 01:01> ROS Statement: Those systems with pertinent positive or pertinent negative responses have been documented in the HPI. Past Medical History Past Medical History: COPD, Hypertension, Thyroid Disorder History of Any Multi-Drug Resistant Organisms: None Reported Past Surgical History: No Surgical Hx Reported Additional Past Surgical History / Comment(s): myasthenia gravis Past Anesthesia/Blood Transfusion Reactions: No Reported Reaction Past Psychological History: Anxiety, Bipolar, Depression Smoking Status: Current every day smoker Past Alcohol Use History: Occasional Past Drug Use History: Marijuana - Past Family History Father History Unknown: Yes Mother History Unknown: Yes Sister(s) History Unknown: Yes Brother(s) History Unknown: Yes Daughter(s) Family Medical History: No Reported History Son(s) Family Medical History: No Reported History <Ted Arboleda - Last Filed: 10/12/19 19:24> General Exam Limitations: no limitations <Ted Arboleda - Last Filed: 10/12/19 19:24> - General Exam Comments Initial Comments: Constitutional: NAD, AOX3, Pt has pleasant affect. HEENT: NC/AT, trachea midline, neck supple, no lymphadenopathy. Posterior pharynx non erythematous, without exudates. External ears appear normal, without discharge. Mucous membranes moist. Eyes PERRLA, EOM intact. There is no scleral icterus. No pallor noted. Cardiopulmonary: RRR, no murmurs, rubs or gallops, no JVD noted. Lungs CTAB in anterior and posterior bush. No peripheral edema. Abdominal exam: Abdomen soft and non-distended. Abdomen non-tender to palpation in all 4 quadrants. Bowel sounds active in LLQ. No hepatosplenomegaly. No ecchymosis. Chest pain reproducible bilaterally.. Neuro: CN II-XII grossly intact. No nuchal rigidity. No raccon eyes, no brand sign, no hemotympanum. No cervical spinal tenderness. MSK: No posterior calf tenderness bilaterally, homans sign negative bilaterally. Posterior tibialis and radial pulse +2 bilaterally. Sensation intact in upper and lower extremities. Full active ROM in upper and lower extremities, 5/5 stregnth. (Ted Arboleda) Course Vital Signs 10/12/19 10/12/19 10/12/19 15:43 17:00 18:39 Temperature 97.8 F 98.5 F Pulse Rate 96 87 82 Respiratory 16 20 18 Rate Blood Pressure 133/84 166/92 151/103 O2 Sat by Pulse 98 96 98 Oximetry 10/12/19 19:25 Temperature 98.8 F Pulse Rate 93 Respiratory 17 Rate Blood Pressure 151/101 O2 Sat by Pulse 100 Oximetry Medical Decision Making - Lab Data Result diagrams: 10/12/19 17:08 10/12/19 17:08 - EKG Data -: EKG Interpreted by La (and Dr. Neville ) <Ted Arboleda - Last Filed: 10/12/19 19:24> - Lab Data Result diagrams: 10/12/19 17:08 10/12/19 17:08 <Brenna Neville - Last Filed: 10/14/19 01:01> - Medical Decision Making 59-year-old female patient presents to ED chief complaint of cough, thoracic back pain, bilateral parasternal chest pain. Has been ongoing for approximately one week. Patient no signs are stable, afebrile. Physical exam displayed chest pain to be reproducible upon palpation. Investigations are non-impressive. Troponin is negative. CT angiography for PE displayed no definite acute process. Coronary artery calcifications. EKG nonischemic. Patient syndrome consistent with bronchitis and costochondritis. Will be discharged with steroids, anti-inflammatories. Patient had normal echo on 06/06/19. Patient will have close outpatient follow-up with cost clerk. Pt will return to ER if condition worsens. Case discussed in depth with Dr. Neville. (Ted Arboleda) I was available for consultation in the emergency department. The history and physical exam were done by the midlevel provider. I was consulted for this patients care. I reviewed the case with the midlevel provider and based on their presentation of the patient, I agree with the assessment, medical decision making and plan of care as documented. Chart was dictated using [employer] dictation software. Attempts were made to correct any dictation errors however some typographical errors may persist. (Brenna Neville) - Lab Data Lab Results 10/12/19 10/12/19 10/12/19 Range/Units 17:08 17:08 17:08 WBC 9.2 (3.8-10.6) k/uL RBC 4.86 (3.80-5.40) m/uL Hgb 14.8 (11.4-16.0) gm/dL Hct 45.2 (34.0-46.0) % MCV 93.0 (80.0-100.0) fL MCH 30.6 (25.0-35.0) pg MCHC 32.9 (31.0-37.0) g/dL RDW 13.0 (11.5-15.5) % Plt Count 361 (150-450) k/uL Neutrophils % 59 % Lymphocytes % 30 % Monocytes % 4 % Eosinophils % 3 % Basophils % 2 % Neutrophils # 5.4 (1.3-7.7) k/uL Lymphocytes # 2.8 (1.0-4.8) k/uL Monocytes # 0.4 (0-1.0) k/uL Eosinophils # 0.3 (0-0.7) k/uL Basophils # 0.2 (0-0.2) k/uL PT (9.0-12.0) sec INR (<1.2) APTT (22.0-30.0) sec Sodium 144 (137-145) mmol/L Potassium 3.8 (3.5-5.1) mmol/L Chloride 106 (98-107) mmol/L Carbon Dioxide 25 (22-30) mmol/L Anion Gap 13 mmol/L BUN 11 (7-17) mg/dL Creatinine 0.52 (0.52-1.04) mg/dL Est GFR (CKD-EPI)AfAm >90 (>60 ml/min/1.73 sqM) Est GFR (CKD-EPI)NonAf >90 (>60 ml/min/1.73 sqM) Glucose 103 H (74-99) mg/dL Calcium 9.8 (8.4-10.2) mg/dL Magnesium 1.6 (1.6-2.3) mg/dL Total Bilirubin 0.3 (0.2-1.3) mg/dL AST 41 H (14-36) U/L ALT 28 (9-52) U/L Alkaline Phosphatase 133 H (38-126) U/L Troponin I (0.000-0.034) ng/mL NT-Pro-B Natriuret Pep 126 pg/mL Total Protein 8.8 H (6.3-8.2) g/dL Albumin 4.5 (3.5-5.0) g/dL 10/12/19 10/12/19 Range/Units 17:08 17:08 WBC (3.8-10.6) k/uL RBC (3.80-5.40) m/uL Hgb (11.4-16.0) gm/dL Hct (34.0-46.0) % MCV (80.0-100.0) fL MCH (25.0-35.0) pg MCHC (31.0-37.0) g/dL RDW (11.5-15.5) % Plt Count (150-450) k/uL Neutrophils % % Lymphocytes % % Monocytes % % Eosinophils % % Basophils % % Neutrophils # (1.3-7.7) k/uL Lymphocytes # (1.0-4.8) k/uL Monocytes # (0-1.0) k/uL Eosinophils # (0-0.7) k/uL Basophils # (0-0.2) k/uL PT 10.2 (9.0-12.0) sec INR 0.9 (<1.2) APTT 27.0 (22.0-30.0) sec Sodium (137-145) mmol/L Potassium (3.5-5.1) mmol/L Chloride (98-107) mmol/L Carbon Dioxide (22-30) mmol/L Anion Gap mmol/L BUN (7-17) mg/dL Creatinine (0.52-1.04) mg/dL Est GFR (CKD-EPI)AfAm (>60 ml/min/1.73 sqM) Est GFR (CKD-EPI)NonAf (>60 ml/min/1.73 sqM) Glucose (74-99) mg/dL Calcium (8.4-10.2) mg/dL Magnesium (1.6-2.3) mg/dL Total Bilirubin (0.2-1.3) mg/dL AST (14-36) U/L ALT (9-52) U/L Alkaline Phosphatase (38-126) U/L Troponin I <0.012 (0.000-0.034) ng/mL NT-Pro-B Natriuret Pep pg/mL Total Protein (6.3-8.2) g/dL Albumin (3.5-5.0) g/dL - EKG Data EKG Comments: Ventricular rate 85, MT interval 1:30, curious 84, QT/QTc 400 dorsalis 476. Normal sinus rhythm, right atrial enlargement comport an EKG, no concern for acute ischemia. (Ted Arboleda) Disposition Is patient prescribed a controlled substance at d/c from ED?: No <Ted Arboleda - Last Filed: 10/12/19 19:24> <Brenna Neville - Last Filed: 10/14/19 01:01> Clinical Impression: Bronchitis, Costochondral chest pain Disposition: HOME SELF-CARE Condition: Stable Instructions (If sedation given, give patient instructions): Chest Pain (ED), Costochondritis (ED), Acute Bronchitis (ED) Additional Instructions: Follow-up with primary care provider and cost clerk as directed tomorrow. Take medication as directed. Return to ER if condition worsens. Prescriptions: predniSONE 50 mg PO DAILY #4 tab Albuterol Inhaler [Ventolin Hfa Inhaler] 1 - 2 puff INHALATION Q4-6H PRN #1 inhaler PRN Reason: Cough Referrals: [facility] [Primary Care Provider] - 1-2 days [facility] [Provider Group] - 1-2 days
== END 2019-10-12 19:39 | disposition home or self-care (01) ==
LOC: EC 15:41
DX: J40 Bronchitis, not specified as acute or chronic (principal); M54.6 Pain in thoracic spine; F17.200 Nicotine dependence, unspecified, uncomplicated; Z87.09 Personal history of other diseases of the respiratory system; Z79.82 Long term (current) use of aspirin; Z79.899 Other long term (current) drug therapy; Z88.6 Allergy status to analgesic agent
CPT/HCPCS: 36415; 93005; 83880; 80053; 83735; 84484; 85025; 85610; 85730; 71275; 99284; 96374; 96361 ×2; J2270; J7512; Q9967

== ENCOUNTER 2022-08-02 09:19 | Observation (INO) | payer MEDICARE, OTHER ==
[2022-08-02] MEDS ORDERED: ONDANSETRON 4 MG/2 ML VIAL IVP STA (09:35)
[2022-08-02] MEDS ORDERED: SODIUM CHLORIDE 0.9% 1,000 ML IV STA (09:35)
[2022-08-02] MEDS ORDERED: SODIUM CHLORIDE 0.9% 500 ML 500 ML IV STA (09:35)
--- NOTE | 2022-08-02 10:16 | ED ---
General Adult HPI - General Chief complaint: Nausea/Vomiting/Diarrhea Stated complaint: Vomiting Time Seen by Provider: 08/02/22 09:20 Source: patient, EMS, RN notes reviewed, old records reviewed Mode of arrival: EMS Limitations: no limitations - History of Present Illness Initial comments: This is a 62-year-old female who presents emergency Department with a past medical history significant for COPD and myasthenia gravis for which she is not taking any medications because she does not have a primary medical care doctor. Patient states the last 3 days she has been experiencing nausea and vomiting and also complains of some mid abdominal pain and some lower back pain. Patient denies any chest pain palpitations or difficulty breathing. Patient denies headache patient denies any numbness or weakness. Patient denies any diarrhea. Patient denies any dysuria hematuria urinary frequency. - Related Data Home Medications Medication Instructions Recorded Confirmed Aspirin 325 mg PO DAILY 09/07/19 09/07/19 Loratadine [Claritin] 10 mg PO DAILY PRN 09/07/19 09/07/19 Multivitamins, Thera [Multivitamin 1 tab PO DAILY 09/07/19 09/07/19 (formulary)] clonazePAM [KlonoPIN] 1 mg PO DAILY 09/07/19 09/07/19 Previous Rx's Medication Instructions Recorded Albuterol Inhaler [Ventolin Hfa 2 puff INHALATION RT-Q6H PRN puff 07/23/19 Inhaler] Colloidal Oatmeal [Eucerin Eczema 1 applic TOPICAL BID #1 cream..g. 07/23/19 Relief] Melatonin 3 mg PO HS #14 tablet 07/23/19 Sertraline [Zoloft] 200 mg PO DAILY #14 tab 07/23/19 Thiamine [Vitamin B-1] 100 mg PO DAILY #14 tab 07/23/19 amLODIPine [Norvasc] 10 mg PO DAILY #14 tab 07/23/19 traZODone HCL [Desyrel] 100 mg PO HS #14 tab 07/23/19 Albuterol Inhaler [Ventolin Hfa 1 - 2 puff INHALATION Q4-6H PRN #1 10/12/19 Inhaler] inhaler predniSONE 50 mg PO DAILY #4 tab 10/12/19 Allergies Allergy/AdvReac Type Severity Reaction Status Date / Time ibuprofen [From Motrin] Allergy Itching,VOM Verified 10/12/19 15:48 ITING Review of Systems ROS Statement: Those systems with pertinent positive or pertinent negative responses have been documented in the HPI. ROS Other: All systems not noted in ROS Statement are negative. Past Medical History Past Medical History: COPD, Hypertension, Thyroid Disorder History of Any Multi-Drug Resistant Organisms: None Reported Past Surgical History: No Surgical Hx Reported Additional Past Surgical History / Comment(s): myasthenia gravis Past Anesthesia/Blood Transfusion Reactions: No Reported Reaction Past Psychological History: Anxiety, Bipolar, Depression Smoking Status: Current every day smoker, Heavy tobacco smoker Past Alcohol Use History: Occasional Past Drug Use History: Marijuana - Past Family History Father History Unknown: Yes Mother History Unknown: Yes Sister(s) History Unknown: Yes Brother(s) History Unknown: Yes Daughter(s) Family Medical History: No Reported History Son(s) Family Medical History: No Reported History General Exam - General Exam Comments Initial Comments: GENERAL: Patient is well-developed and well-nourished. Patient is nontoxic and well- hydrated and is in mild distress. ENT: Neck is soft and supple. No significant lymphadenopathy is noted. Oropharynx is clear. Moist mucous membranes. Neck has full range of motion without eliciting any pain. EYES: The sclera were anicteric and conjunctiva were pink and moist. Extraocular movements were intact and pupils were equal round and reactive to light. Eyelids were unremarkable. PULMONARY: Unlabored respirations. Good breath sounds bilaterally. No audible rales rhonchi or wheezing was noted. CARDIOVASCULAR: There is a regular rate and rhythm without any murmurs gallops or rubs. ABDOMEN: Mid abdominal tenderness. SKIN: Skin is clear with no lesions or rashes and otherwise unremarkable. NEUROLOGIC: Patient is alert and oriented x3. Cranial nerves II through XII are grossly intact. Motor and sensory are also intact. Normal speech, volume and content. Symmetrical smile. MUSCULOSKELETAL: Normal extremities with adequate strength and full range of motion. No lower extremity swelling or edema. No calf tenderness. LYMPHATICS: No significant lymphadenopathy is noted PSYCHIATRIC: Normal psychiatric evaluation. Limitations: no limitations Course Vital Signs 08/02/22 08/02/22 09:30 11:24 Temperature 98.2 F Pulse Rate 115 H 104 H Respiratory 20 18 Rate Blood Pressure 153/101 143/78 O2 Sat by Pulse 98 98 Oximetry Medical Decision Making - Medical Decision Making EKG shows sinus tachycardia at 103 bpm [place] interval is 130 QRS is 84 QT interval 372 QTC is 431. Patient's EKG shows no ST segment elevation or depression. Patient's lactic acidosis 6.4 and this is secondary to significant dehydration. Patient received 1.5 L normal saline in the emergency department and receive Zofran. I spoke with sounds physicians agreed to admit the patient to the patient wrote admitting orders. - Lab Data Result diagrams: 08/02/22 10:10 08/02/22 10:14 Lab Results 08/02/22 08/02/22 08/02/22 Range/Units 10:10 10:10 10:10 WBC 7.7 (3.8-10.6) k/uL RBC 4.23 (3.80-5.40) m/uL Hgb 13.0 (11.4-16.0) gm/dL Hct 40.8 (34.0-46.0) % MCV 96.5 (80.0-100.0) fL MCH 30.8 (25.0-35.0) pg MCHC 31.9 (31.0-37.0) g/dL RDW 13.7 (11.5-15.5) % Plt Count 291 (150-450) k/uL MPV 8.7 Neutrophils % 79 % Lymphocytes % 14 % Monocytes % 4 % Eosinophils % 1 % Basophils % 1 % Neutrophils # 6.1 (1.3-7.7) k/uL Lymphocytes # 1.1 (1.0-4.8) k/uL Monocytes # 0.3 (0-1.0) k/uL Eosinophils # 0.1 (0-0.7) k/uL Basophils # 0.0 (0-0.2) k/uL Sodium (137-145) mmol/L Potassium (3.5-5.1) mmol/L Chloride (98-107) mmol/L Carbon Dioxide (22-30) mmol/L Anion Gap mmol/L BUN (7-17) mg/dL Creatinine (0.52-1.04) mg/dL Est GFR (CKD-EPI)AfAm (>60 ml/min/1.73 sqM) Est GFR (CKD-EPI)NonAf (>60 ml/min/1.73 sqM) Glucose (74-99) mg/dL Plasma Lactic Acid Lew 6.4 H* (0.7-2.0) mmol/L Calcium (8.4-10.2) mg/dL Total Bilirubin (0.2-1.3) mg/dL AST (14-36) U/L ALT (4-34) U/L Alkaline Phosphatase (38-126) U/L Total Protein (6.3-8.2) g/dL Albumin (3.5-5.0) g/dL Amylase (30-110) U/L Lipase (23-300) U/L Urine Color Yellow Urine Appearance Clear (Clear) Urine pH 6.0 (5.0-8.0) Ur Specific [place] 1.033 (1.001-1.035) Urine Protein 1+ H (Negative) Urine Glucose (UA) Negative (Negative) Urine Ketones 3+ H (Negative) Urine Blood Small H (Negative) Urine Nitrite Negative (Negative) Urine Bilirubin Negative (Negative) Urine Urobilinogen 2.0 (<2.0) mg/dL Ur Leukocyte Esterase Negative (Negative) Urine RBC 1 (0-5) /hpf Urine WBC 1 (0-5) /hpf Ur Squamous Epith Cells 1 (0-4) /hpf Urine Bacteria Rare H (None) /hpf Hyaline Casts 18 H (0-2) /lpf Urine Mucus Rare H (None) /hpf 08/02/22 Range/Units 10:14 WBC (3.8-10.6) k/uL RBC (3.80-5.40) m/uL Hgb (11.4-16.0) gm/dL Hct (34.0-46.0) % MCV (80.0-100.0) fL MCH (25.0-35.0) pg MCHC (31.0-37.0) g/dL RDW (11.5-15.5) % Plt Count (150-450) k/uL MPV Neutrophils % % Lymphocytes % % Monocytes % % Eosinophils % % Basophils % % Neutrophils # (1.3-7.7) k/uL Lymphocytes # (1.0-4.8) k/uL Monocytes # (0-1.0) k/uL Eosinophils # (0-0.7) k/uL Basophils # (0-0.2) k/uL Sodium 143 (137-145) mmol/L Potassium 3.4 L (3.5-5.1) mmol/L Chloride 93 L (98-107) mmol/L Carbon Dioxide 25 (22-30) mmol/L Anion Gap 25 mmol/L BUN 20 H (7-17) mg/dL Creatinine 0.70 (0.52-1.04) mg/dL Est GFR (CKD-EPI)AfAm >90 (>60 ml/min/1.73 sqM) Est GFR (CKD-EPI)NonAf >90 (>60 ml/min/1.73 sqM) Glucose 146 H (74-99) mg/dL Plasma Lactic Acid Lew (0.7-2.0) mmol/L Calcium 8.5 (8.4-10.2) mg/dL Total Bilirubin 1.2 (0.2-1.3) mg/dL AST 308 H (14-36) U/L ALT 73 H (4-34) U/L Alkaline Phosphatase 81 (38-126) U/L Total Protein 8.1 (6.3-8.2) g/dL Albumin 4.8 (3.5-5.0) g/dL Amylase 296 H (30-110) U/L Lipase 217 (23-300) U/L Urine Color Urine Appearance (Clear) Urine pH (5.0-8.0) Ur Specific [place] (1.001-1.035) Urine Protein (Negative) Urine Glucose (UA) (Negative) Urine Ketones (Negative) Urine Blood (Negative) Urine Nitrite (Negative) Urine Bilirubin (Negative) Urine Urobilinogen (<2.0) mg/dL Ur Leukocyte Esterase (Negative) Urine RBC (0-5) /hpf Urine WBC (0-5) /hpf Ur Squamous Epith Cells (0-4) /hpf Urine Bacteria (None) /hpf Hyaline Casts (0-2) /lpf Urine Mucus (None) /hpf Disposition Clinical Impression: Acute vomiting, Dehydration, Lactic acidosis Disposition: ADMITTED IP TO THIS HOSP Referrals: [facility] [Primary Care Provider] - 1-2 days Time of Disposition: 12:38
[2022-08-02 10:34] LABS: Basophils % (A) 1 %; Eosinophils # (A) 0.1 k/uL (0-0.7); Eosinophils % (A) 1 %; HCT 40.8 % (34.0-46.0); Lymphocytes # (A) 1.1 k/uL (1.0-4.8); Lymphocytes % (A) 14 %; MCH 30.8 pg (25.0-35.0); MCHC 31.9 g/dL (31.0-37.0); MCV 96.5 fL (80.0-100.0); Mean Platelet Volume 8.7; Monocytes # (A) 0.3 k/uL (0-1.0); Monocytes % (A) 4 %; Neutrophils # (A) 6.1 k/uL (1.3-7.7); Neutrophils % (A) 79 %; Platelet Count 291 k/uL (150-450); RBC 4.23 m/uL (3.80-5.40); RDW 13.7 % (11.5-15.5); WBC 7.7 k/uL (3.8-10.6)
--- NOTE | 2022-08-02 10:39 | XR ---
EXAMINATION TYPE: XR chest 2V DATE OF EXAM: 08/02/2022 COMPARISON: 06/15/2019 TECHNIQUE: PA and lateral views submitted. HISTORY: Difficulty breathing FINDINGS: The lungs are clear and there is no pneumothorax, pleural effusion, or focal pneumonia. Heart size normal. No overt failure. IMPRESSION: 1. No acute process.
[2022-08-02 10:59] LABS: ALT 73 U/L (4-34); AST 308 U/L (14-36); African American GFR (CKD) >90 (>60 ml/min/1.73 sqM); Albumin 4.8 g/dL (3.5-5.0); Alkaline Phosphatase 81 U/L (38-126); Amylase 296 U/L (30-110); Anion Gap 25 mmol/L; Blood Urea Nitrogen 20 mg/dL (7-17); Calcium 8.5 mg/dL (8.4-10.2); Carbon Dioxide 25 mmol/L (22-30); Chloride 93 mmol/L (98-107); Glucose 146 mg/dL (74-99); Lipase 217 U/L (23-300); Non-African American GFR(CKD) >90 (>60 ml/min/1.73 sqM); Potassium 3.4 mmol/L (3.5-5.1); Sodium 143 mmol/L (137-145); Total Bilirubin 1.2 mg/dL (0.2-1.3); Total Protein 8.1 g/dL (6.3-8.2)
--- NOTE | 2022-08-02 11:03 | CT ---
EXAMINATION TYPE: CT abdomen pelvis w con DATE OF EXAM: 08/02/2022 HISTORY: vomiting and unspecified abdominal pain CT DLP: 507.1mGycm Automated Exposure Control for Dose Reduction was Utilized. CONTRAST: CT scan of the abdomen and pelvis is performed with IV Contrast, patient injected with 100 mL of Isov ue 300. COMPARISON: None. FINDINGS: Exam slightly suboptimal as patient unable to hold still LUNG BASES: No significant abnormality is appreciated. LIVER/GB: Visualized liver are markedly heterogeneous hypodense consistent with diffuse fatty infiltr ative hepatocellular disease. Dependent small calcified gallstone axial image 32. No surrounding fat stranding to suggest acute cholecystitis. No biliary dilatation. PANCREAS: Calcifications at the level of the pancreatic head. Findings suggestive of product of chron ic pancreatitis. [id number] gastric fold prominence particularly in the fundus. SPLEEN: No significant abnormality is seen. ADRENALS: No significant abnormality is seen. KIDNEYS: Symmetric cortical medullary uptake and excretion without hydronephrosis seen bilaterally. M ildly distended bladder. BOWEL: Suboptimal study without enteric contrast. No suspicious small or large bowel dilatation. Low- lying cecum into the right pelvis. Mild to moderate wall thickening right colon. UTERUS/ADNEXA: Anteverted uterus. Occasional scattered tiny pelvic phlebolith. LYMPH NODES: No greater than 1cm abdominal or pelvic lymph nodes are appreciated. OSSEOUS STRUCTURES: Sclerosis with mild to moderate anterior spurring L5-S1 level. OTHER: No significant additional abnormality is seen. IMPRESSION: No bowel obstruction. Mild to moderate fundal gastritis is felt present. Correlate clinic ally. Possible mild uncomplicated right-sided colitis versus product of poor distention. Correlate cl inically.
[2022-08-02 12:03] LABS: Appearance,Urine Clear (Clear); Bacteria,Urine Rare /hpf; Bilirubin,Urine Negative (Negative); Blood,Urine Small (Negative); Color,Urine Yellow; Glucose,Urine (UA) Negative (Negative); Hyaline Casts,Urine 18 /lpf (0-2); Ketones,Urine 3+ (Negative); Leukocyte Esterase,Urine Negative (Negative); Mucus,Urine Rare /hpf; Nitrite,Urine Negative (Negative); Protein,Urine 1+ (Negative); RBC,Urine 1 /hpf (0-5); Specific Gravity,Urine 1.033 (1.001-1.035); Squamous Epithelial Cell,Urine 1 /hpf (0-4); WBC,Urine 1 /hpf (0-5)
[2022-08-02] MEDS ORDERED: KETOROLAC 15 MG/ML 1 ML VIAL IVP STA (12:26)
[2022-08-02] MEDS ORDERED: SODIUM CHLORIDE 0.9% 1,000 ML IV ONE (12:38)
[2022-08-02] MEDS ORDERED: MAG HYDROX/AL HYDROX/SIMETH 30 ML CUP PO PRN (14:26)
[2022-08-02] MEDS ORDERED: ONDANSETRON 4 MG/2 ML VIAL IVP PRN (14:26)
[2022-08-02] MEDS ORDERED: NALOXONE 0.4 MG/ML 1 ML VIAL IV PRN (14:26)
[2022-08-02] MEDS ORDERED: ACETAMINOPHEN TAB 500 MG TAB PO PRN (14:32)
[2022-08-02] MEDS ORDERED: ALBUTEROL NEBULIZED 2.5 MG/3 ML INHALATION PRN (14:32)
[2022-08-02] MEDS: NICOTINE 14MG/24HR PATCH TRANSDERM SCH (14:50)
[2022-08-02] MEDS: DICLOFENAC SODIUM GEL 100 GM TUBE TOPICAL SCH (14:57)
[2022-08-02] MEDS ORDERED: MORPHINE SULFATE 2 MG/ML SYRINGE IVP STA (15:56)
[2022-08-02] MEDS: CYPROHEPTADINE 4 MG TABLET PO SCH ×2 (16:03→21:49)
[2022-08-02] MEDS ORDERED: ACETAMINOPHEN TAB 325 MG TAB PO PRN (17:52)
[2022-08-02] MEDS ORDERED: LORazepam 1 MG/0.5 ML VIAL IV PRN ×3 (17:53)
[2022-08-02] MEDS ORDERED: THIAMINE 100 MG/ML 2 ML VIAL IM STA (17:53)
--- NOTE | 2022-08-02 17:59 | P.HPIM ---
History of Present Illness H&P Date: 08/02/22 Chief Complaint: vomitting Patient is a 62-year-old female with past medical history of myasthenia gravis [not on medications], COPD, alcohol use disorder, depression, bipolar disorder, anxiety, nicotine use disorder presenting for acute onset nausea and vomiting, and abdominal pain for 3 days. Patient claims that she was in her usual state of health, started to have nausea and vomiting, burning abdominal and chest pain for the last 3 days. She has vomited multiple times throughout the day. She has not noticed any hematemesis or coffee-ground emesis. She denies any constipation or diarrhea. She denies any cough, urinary complaints, new rashes. She denies any recent sick contacts or travel history. Patient claims that she intermittently drinks alcohol, her last drink was Friday. She had previously been admitted for alcohol withdrawal, but never had any withdrawal seizures or DTs. She claims that she only had small amount of wine and beer on Friday. In the ED, patient was actually tachycardic up to 115, with blood pressure of 15 3/101, saturating well on room air, and temperature 98.2. She did not have any high white count, had lactic acidosis of 6.4, with AST of 308, PLT of 73, normal ALP. Her lipase was 217. Urine showed ketones. EKG demonstrated sinus tachycardia. Chest x-ray unremarkable. CT abdomen/pelvis showed mild to moderate fundal gastritis, questionable right- sided colitis, and possible chronic pancreatitis. In the ED, She was given a total of 2 L normal saline bolus, started on maintenance fluids. She was also given Toradol 15 IV once, Zofran 4 IV once. Pertinent positives and negatives as discussed in HPI, a complete review of systems was performed and all other systems are negative. Patient seen and examined at bedside. Vital signs reviewed General: nontoxic, no distress, appears at stated age, thin-appearing Derm: warm, dry Head: atraumatic, normocephalic, symmetric Eyes: EOMI, no lid lag, anicteric sclera, pupils equal round reactive to light ENT: Nose and ears atraumatic Neck: No thyromegaly, trachea midline, supple Mouth: no lip lesion, dry mucus membranes Cardiovascular: Tachycardic, regular, S1S2 reg, no murmur, no edema Lungs: clear to auscultation bilateral, no rhonchi, no rales, no wheeze, no accessory muscle use Abdominal: soft, mild tenderness to palpation in periumbilical region, no guarding, no appreciable organomegaly, normal bowel sounds Ext: no gross muscle atrophy, muscle strength muscle strength 5 out of 5 in all 4 extremities, no contractures Neuro: CN II-XII grossly intact Psych: Alert, oriented, appropriate affect Assessment/Plan: Acute gastroenteritis Dehydration Lactic acidosis -Possibly viral versus alcohol related -Continue IV fluids -Zofran for nausea -Encourage oral intake -Trend lactate Transaminitis - given AST:ALT more than 2:1, likely etoh related - continue to monitor, if worsening will need work up with Abd US and hepatitis panel Acute on chronic back pain -no alarm signs or symptoms -Tylenol PRN, and diclofenac gel Possible chronic pancreatitis -noted on CT -less likely to be the cause of current acute abdominal pain Alcohol use disorder - monitor on CIWA - ativan PRN - thiamine and folic acid - last drink 07/31 Nicotine use disorder -Nicotine patch -Counseled regarding smoking cessation Chronic problems: depression/bipolar, HTN, COPD - continue home meds The patient is admitted with an anticipated less than 2 midnight stay for evaluation of acute gastroenteritis. CODE STATUS: Full code DVT prophylaxis: Lovenox Anticipated discharge date: 08/03/[address]: Home A total of 45 minutes was spent on the care of this complex patient more than 50% of the time was spent in counseling and care coordination. Past Medical History Past Medical History: COPD, Hypertension, Thyroid Disorder History of Any Multi-Drug Resistant Organisms: None Reported Past Surgical History: No Surgical Hx Reported Additional Past Surgical History / Comment(s): myasthenia gravis Past Anesthesia/Blood Transfusion Reactions: No Reported Reaction Past Psychological History: Anxiety, Bipolar, Depression Smoking Status: Current every day smoker, Heavy tobacco smoker Past Alcohol Use History: Occasional Past Drug Use History: Marijuana - Past Family History Father History Unknown: Yes Mother History Unknown: Yes Sister(s) History Unknown: Yes Brother(s) History Unknown: Yes Daughter(s) Family Medical History: No Reported History Son(s) Family Medical History: No Reported History Medications and Allergies Home Medications Medication Instructions Recorded Confirmed Type amLODIPine [Norvasc] 10 mg PO DAILY #14 tab 07/23/19 08/02/22 Rx Acetaminophen Tab [Tylenol Tab] 1,000 mg PO Q6H PRN 08/02/22 08/02/22 History Acetaminophen/Diphenhydramine 2 tab PO HS PRN 08/02/22 08/02/22 History [Tylenol PM 500-25mg] Albuterol Inhaler [Ventolin Hfa 2 puff INHALATION RT-Q4H PRN 08/02/22 08/02/22 History Inhaler] Cyproheptadine [Cyproheptadine HCl] 4 mg PO TID 08/02/22 08/02/22 History QUEtiapine [SEROquel] 200 mg PO HS 08/02/22 08/02/22 History Allergies Allergy/AdvReac Type Severity Reaction Status Date / Time ibuprofen [From Motrin] Allergy Rash on Verified 08/02/22 13:08 face & Vomiting Physical Exam Vitals: Vital Signs Temp Pulse Resp BP Pulse Ox 08/02/22 11:24 104 H 18 143/78 98 08/02/22 09:30 98.2 F 115 H 20 153/101 98 Intake and Output 08/02/22 08/02/22 08/02/22 06:59 14:59 22:59 Other: Weight 68.039 kg Results CBC & Chem 7: 08/02/22 10:10 08/02/22 10:14 Labs: Abnormal Lab Results - Last 24 Hours (Table) 08/02/22 08/02/22 08/02/22 Range/Units 10:10 10:10 10:14 Potassium 3.4 L (3.5-5.1) mmol/L Chloride 93 L (98-107) mmol/L BUN 20 H (7-17) mg/dL Glucose 146 H (74-99) mg/dL Plasma Lactic Acid Lew 6.4 H* (0.7-2.0) mmol/L AST 308 H (14-36) U/L ALT 73 H (4-34) U/L Amylase 296 H (30-110) U/L Urine Protein 1+ H (Negative) Urine Ketones 3+ H (Negative) Urine Blood Small H (Negative) Urine Bacteria Rare H (None) /hpf Hyaline Casts 18 H (0-2) /lpf Urine Mucus Rare H (None) /hpf 09/02/22 Range/Units 13:54 Potassium (3.5-5.1) mmol/L Chloride (98-107) mmol/L BUN (7-17) mg/dL Glucose (74-99) mg/dL Plasma Lactic Acid Lew 4.0 H* (0.7-2.0) mmol/L AST (14-36) U/L ALT (4-34) U/L Amylase (30-110) U/L Urine Protein (Negative) Urine Ketones (Negative) Urine Blood (Negative) Urine Bacteria (None) /hpf Hyaline Casts (0-2) /lpf Urine Mucus (None) /hpf
[2022-08-02] MEDS: THIAMINE 100 MG TAB PO SCH (18:16)
[2022-08-02] MEDS: FOLIC ACID 1 MG TAB PO SCH (18:17)
[2022-08-02] MEDS: QUEtiapine 200 MG TAB PO SCH (22:17)
[2022-08-03] MEDS: DICLOFENAC SODIUM GEL 100 GM TUBE TOPICAL SCH ×3 (01:35→16:37)
[2022-08-03 07:04] LABS: African American GFR (CKD) >90 (>60 ml/min/1.73 sqM); Anion Gap 8 mmol/L; Blood Urea Nitrogen 20 mg/dL (7-17); Carbon Dioxide 29 mmol/L (22-30); Chloride 99 mmol/L (98-107); Glucose 102 mg/dL (74-99); Non-African American GFR(CKD) >90 (>60 ml/min/1.73 sqM); Potassium 2.9 mmol/L (3.5-5.1); Sodium 136 mmol/L (137-145)
[2022-08-03 07:14] LABS: Magnesium 0.8 mg/dL (1.6-2.3)
[2022-08-03] MEDS: FOLIC ACID 1 MG TAB PO SCH (09:11)
[2022-08-03] MEDS: NICOTINE 14MG/24HR PATCH TRANSDERM SCH (09:11)
[2022-08-03] MEDS: THIAMINE 100 MG TAB PO SCH ×2 (09:11→17:39)
[2022-08-03] MEDS: amLODIPine 10 MG TAB PO SCH (09:11)
[2022-08-03] MEDS: ENOXAPARIN 40 MG/0.4 ML SYRINGE SQ SCH ×2 (09:12→09:27)
[2022-08-03] MEDS: POTASSIUM CHLORIDE 10 MEQ in WATER FOR INJECTION 1 100ML.BAG IVPB SCH ×3 (09:18→13:59)
[2022-08-03] MEDS: MAGNESIUM SULFATE-D5W PMX 1 GM in DEXTROSE/WATER 1 100ML.BAG IVPB SCH ×8 (09:19→20:51)
[2022-08-03] MEDS: CYPROHEPTADINE 4 MG TABLET PO SCH ×3 (09:20→20:54)
[2022-08-03] MEDS ORDERED: POTASSIUM CHLORIDE ER 20 MEQ TAB.ER PO STA ×2 (09:43→15:23)
[2022-08-03 15:22] LABS: African American GFR (CKD) >90 (>60 ml/min/1.73 sqM); Anion Gap 11 mmol/L; Blood Urea Nitrogen 13 mg/dL (7-17); Calcium 8.1 mg/dL (8.4-10.2); Carbon Dioxide 30 mmol/L (22-30); Chloride 96 mmol/L (98-107); Glucose 128 mg/dL (74-99); Magnesium 1.6 mg/dL (1.6-2.3); Non-African American GFR(CKD) >90 (>60 ml/min/1.73 sqM); Potassium 3.1 mmol/L (3.5-5.1); Sodium 137 mmol/L (137-145)
--- NOTE | 2022-08-03 15:35 | P.PN ---
Subjective Progress Note Date: 08/03/22 Principal diagnosis: gastroenteritis Hospital course: 62-year-old female with history of myasthenia gravis, COPD, and alcohol use disorder, bipolar/anxiety presenting with nausea/vomiting and abdominal pain. Likely related to acute gastroenteritis, possibly viral. She was dehydrated on admission and had a high lactic acid, which improved with IV fluids. Currently optimizing oral intake, and also repleting potassium and magnesium. Subjective: Patient seen and examined episode. Patient claims that she is feeling much better compared to yesterday. She has not had any further bouts of vomiting, but does still complain of nausea. She was able to keep down some of the fluids and food overnight. She was able to take her morning medications. She still continues to complain about chronic low back pain and epigastric pain. She is able to ambulate with some assistance and using the IV pole. She denies any chest pain, shortness of breath, urinary complaints, constipation or diarrhea. Pertinent positives and negatives as discussed above a complete review of systems was performed and all other systems are negative. Vital signs reviewed. General: nontoxic, no distress, appears at stated age Derm: warm, dry Head: atraumatic, normocephalic, symmetric Eyes: EOMI, no lid lag, anicteric sclera Mouth: no lip lesion, mucus membranes moist Cardiovascular: S1S2 reg, no murmur Lungs: CTA bilateral, no rhonchi, no rales , no accessory muscle use Abdominal: soft, mild tenderness to palpation in the epigastric region, no guarding, no appreciable organomegaly Ext: no gross muscle atrophy, no edema, no contractures Neuro: CN II-XI grossly intact, no focal neuro deficits Psych: Alert, oriented, appropriate affect Assessment and plan: Hypokalemia Hypomagnesemia -Likely in the setting of poor oral intake, significant recent vomiting -Repleting Sinus tachycardia -Possibly related to pain and dehydration -Continue IV fluids Acute gastroenteritis Dehydration Lactic acidosis -Possibly viral versus alcohol related -Continue IV fluids -Zofran for nausea -Encourage oral intake -Lactate improved Transaminitis - given AST:ALT more than 2:1, likely etoh related - continue to monitor, if worsening will need work up with Abd US and hepatitis panel Acute on chronic back pain -no alarm signs or symptoms -Tylenol PRN, and diclofenac gel Possible chronic pancreatitis -noted on CT -less likely to be the cause of current acute abdominal pain Alcohol use disorder - monitor on CIWA - ativan PRN - thiamine and folic acid - last drink 07/31 Nicotine use disorder -Nicotine patch -Counseled regarding smoking cessation Chronic problems: depression/bipolar, HTN, COPD - continue home meds F: NS 100 cc/hr E: replete N: regular A: as tolerated DVT ppx: lovenox Full code Disposition: Likely discharge home tomorrow if electrolytes continue to improve, and adequate oral intake Objective - Vital Signs Vital signs: Vital Signs Temp 97.9 F 08/03/22 05:00 Pulse 127 H 08/03/22 05:00 Resp 24 08/03/22 05:00 BP 141/77 08/03/22 05:00 Pulse Ox 90 L 08/03/22 05:00 FiO2 Intake & Output 08/02/22 08/03/22 08/03/22 18:59 06:59 18:59 Intake Total 500 Balance 500 Weight 68.039 kg Intake: Oral 500 Other: Voiding Method Toilet # Voids 1 - Labs CBC & Chem 7: 08/02/22 10:10 08/03/22 14:55 Labs: Abnormal Lab Results - Last 24 Hours (Table) 08/02/22 08/02/22 08/02/22 Range/Units 10:10 10:10 10:14 Sodium (137-145) mmol/L Potassium 3.4 L (3.5-5.1) mmol/L Chloride 93 L (98-107) mmol/L BUN 20 H (7-17) mg/dL Glucose 146 H (74-99) mg/dL Plasma Lactic Acid Lew 6.4 H* (0.7-2.0) mmol/L Calcium (8.4-10.2) mg/dL Magnesium (1.6-2.3) mg/dL AST 308 H (14-36) U/L ALT 73 H (4-34) U/L Amylase 296 H (30-110) U/L Urine Protein 1+ H (Negative) Urine Ketones 3+ H (Negative) Urine Blood Small H (Negative) Urine Bacteria Rare H (None) /hpf Hyaline Casts 18 H (0-2) /lpf Urine Mucus Rare H (None) /hpf 08/02/22 08/02/22 08/02/22 Range/Units 13:54 17:04 19:51 Sodium (137-145) mmol/L Potassium (3.5-5.1) mmol/L Chloride (98-107) mmol/L BUN (7-17) mg/dL Glucose (74-99) mg/dL Plasma Lactic Acid Lew 4.0 H* 2.8 H* 2.9 H* (0.7-2.0) mmol/L Calcium (8.4-10.2) mg/dL Magnesium (1.6-2.3) mg/dL AST (14-36) U/L ALT (4-34) U/L Amylase (30-110) U/L Urine Protein (Negative) Urine Ketones (Negative) Urine Blood (Negative) Urine Bacteria (None) /hpf Hyaline Casts (0-2) /lpf Urine Mucus (None) /hpf 08/02/22 08/03/22 Range/Units 23:16 04:47 Sodium 136 L (137-145) mmol/L Potassium 2.9 L (3.5-5.1) mmol/L Chloride (98-107) mmol/L BUN 20 H (7-17) mg/dL Glucose 102 H (74-99) mg/dL Plasma Lactic Acid Lew 2.9 H* (0.7-2.0) mmol/L Calcium 7.0 L (8.4-10.2) mg/dL Magnesium 0.8 L* (1.6-2.3) mg/dL AST (14-36) U/L ALT (4-34) U/L Amylase (30-110) U/L Urine Protein (Negative) Urine Ketones (Negative) Urine Blood (Negative) Urine Bacteria (None) /hpf Hyaline Casts (0-2) /lpf Urine Mucus (None) /hpf
[2022-08-03] MEDS: QUEtiapine 200 MG TAB PO SCH (20:54)
[2022-08-04] MEDS: DICLOFENAC SODIUM GEL 100 GM TUBE TOPICAL SCH ×2 (03:23→09:12)
[2022-08-04] MEDS: ENOXAPARIN 40 MG/0.4 ML SYRINGE SQ SCH (09:08)
[2022-08-04] MEDS: FOLIC ACID 1 MG TAB PO SCH (09:10)
[2022-08-04] MEDS: THIAMINE 100 MG TAB PO SCH (09:10)
[2022-08-04] MEDS: amLODIPine 10 MG TAB PO SCH (09:10)
[2022-08-04] MEDS: CYPROHEPTADINE 4 MG TABLET PO SCH (09:11)
[2022-08-04] MEDS: NICOTINE 14MG/24HR PATCH TRANSDERM SCH (09:11)
[2022-08-04 11:24] VITALS: BP 102/67; PULSE 111; RESP 16; TEMP 98.5
[2022-08-04 11:50] LABS: African American GFR (CKD) 114.3 (60.0-200.0); Anion Gap 13.9 mmol/L (10.00-18.00); BUN/Creat Ratio 11.93 Ratio (12.00-20.00); Blood Urea Nitrogen 7.1 mg/dL (9.0-27.0); Calcium 8.3 mg/dL (8.7-10.3); Carbon Dioxide 25.8 mmol/L (20.0-27.5); Magnesium 1.9 mg/dL (1.5-2.4); Non-African American GFR(CKD) 98.6 (60.0-200.0); Potassium 3.2 mmol/L (3.5-5.5)
[2022-08-04] MEDS ORDERED: POTASSIUM CHLORIDE ER 20 MEQ TAB.ER PO STA (12:16)
--- NOTE | 2022-08-04 12:21 | P.DS ---
Providers Date of admission: 08/02/22 12:38 Expected date of discharge: 08/04/22 Attending physician: Debby Weiner DO Primary care physician: [facility] Hospital Course: Discharge Diagnosis: Acute gastroenteritis Dehydration Hypokalemia Hypomagnesemia Sinus tachycardia Lactic acidosis Transaminitis Acute on chronic back pain Possible chronic pancreatitis Nicotine use disorder Alcohol use disorder Hospital Course: 62-year-old female history of myasthenia gravis, COPD, alcohol use disorder, bipolar/anxiety presented initially for nausea and vomiting, and abdominal pain. He was likely related to acute gastroenteritis, possibly viral. She was treated with IV fluids for dehydration and lactic acidosis. She also had hypokalemia and hypomagnesemia, requiring both IV and oral repletion. She cont inues to have mild epigastric pain, and chest soreness from frequent prior vomiting. Patient recommended to take liquids at home and small frequent meals. Patient seen and examined at bedside. Vital signs reviewed and stable. General: nontoxic, no distress, appears at stated age Derm: warm, dry Head: atraumatic, normocephalic, symmetric Eyes: EOMI, no lid lag, anicteric sclera Mouth: no lip lesion, mucus membranes moist Cardiovascular: S1S2 reg, no murmur Lungs: CTA bilateral, no rhonchi, no rales , no accessory muscle use Abdominal: soft, mild tenderness to palpation in the epigastric region, no guarding, no appreciable organomegaly Ext: no gross muscle atrophy, no edema, no contractures Neuro: CN II-XI grossly intact, no focal neuro deficits Psych: Alert, oriented, appropriate affect A total of 37 minutes of time were spent preparing this complex discharge summary. Patient was discharged on 08/04/22 at 12:18. Plan - Discharge Summary Discharge Rx Participant: Yes New Discharge Prescriptions: New Thiamine [Vitamin B-1] 100 mg PO BID-W/MEALS #30 tab Folic Acid 1 mg PO DAILY #30 tab Continue amLODIPine [Norvasc] 10 mg PO DAILY #14 tab QUEtiapine [SEROquel] 200 mg PO HS Acetaminophen/Diphenhydramine [Tylenol PM 500-25mg] 2 tab PO HS PRN PRN Reason: Pain Cyproheptadine [Cyproheptadine HCl] 4 mg PO TID Acetaminophen Tab [Tylenol] 1,000 mg PO Q6H PRN PRN Reason: Pain Albuterol Inhaler [Ventolin Hfa Inhaler] 2 puff INHALATION RT-Q4H PRN PRN Reason: Shortness Of Breath Discharge Medication List amLODIPine [Norvasc] 10 mg PO DAILY #14 tab 07/23/19 [Rx] Acetaminophen Tab [Tylenol] 1,000 mg PO Q6H PRN 08/02/22 [History] Acetaminophen/Diphenhydramine [Tylenol PM 500-25mg] 2 tab PO HS PRN 08/02/22 [History] Albuterol Inhaler [Ventolin Hfa Inhaler] 2 puff INHALATION RT-Q4H PRN 08/02/22 [History] Cyproheptadine [Cyproheptadine HCl] 4 mg PO TID 08/02/22 [History] QUEtiapine [SEROquel] 200 mg PO HS 08/02/22 [History] Folic Acid 1 mg PO DAILY #30 tab 08/04/22 [Rx] Thiamine [Vitamin B-1] 100 mg PO BID-W/MEALS #30 tab 08/04/22 [Rx] Follow up Appointment(s)/Referral(s): [facility] [Primary Care Provider] - 1-2 days Patient Instructions/Handouts: Gastroenteritis (GEN) Activity/Diet/Wound Care/Special Instructions: take mostly oral liquids likely clear broth before advancing to solid food. Discharge Disposition: HOME SELF-CARE
== END 2022-08-04 15:20 | disposition home or self-care (01) ==
LOC: EC 09:19 → 5NMEDONC 12:38
PROVIDERS: ADMIT Internal Medicine; ATTEND Internal Medicine
DX: K52.9 Noninfective gastroenteritis and colitis, unspecified (principal); E86.0 Dehydration; E87.2 Acidosis; E87.6 Hypokalemia; E83.42 Hypomagnesemia; K29.70 Gastritis, unspecified, without bleeding; R00.0 Tachycardia, unspecified; R74.01 Elevation of levels of liver transaminase levels; G70.00 Myasthenia gravis without (acute) exacerbation; E07.9 Disorder of thyroid, unspecified; F31.9 Bipolar disorder, unspecified; F41.9 Anxiety disorder, unspecified; J44.9 Chronic obstructive pulmonary disease, unspecified; I10 Essential (primary) hypertension; M54.50 Low back pain, unspecified; G89.29 Other chronic pain; F17.200 Nicotine dependence, unspecified, uncomplicated; Z79.82 Long term (current) use of aspirin; Z79.899 Other long term (current) drug therapy; Z88.6 Allergy status to analgesic agent; Z71.6 Tobacco abuse counseling; Z72.89 Other problems related to lifestyle
CPT/HCPCS: 96361 ×3; 96365; 96366; 96375 ×2; 96368; 99285; 36415; 93005; 80053; 80048 ×2; 82150; 83605 ×2; 83690; 83735 ×2; 85025; 81001; 71046; 74177; G0378 ×3; S4990 ×2; J2060; J2405; J2270; J3475; J3480; J1885; Q9967

== ENCOUNTER 2022-10-22 11:10 | Inpatient (IN) | payer MEDICARE, OTHER ==
[2022-10-22 11:45] LABS: INR 1.1 (<1.2)
[2022-10-22 11:47] LABS: Basophils % (A) 0 %; Eosinophils # (A) 0.1 k/uL (0-0.7); Eosinophils % (A) 1 %; HCT 43.5 % (34.0-46.0); HGB 14.4 gm/dL (11.4-16.0); Lymphocytes # (A) 2.2 k/uL (1.0-4.8); Lymphocytes % (A) 19 %; MCH 30.5 pg (25.0-35.0); MCV 92.3 fL (80.0-100.0); Mean Platelet Volume 9.2; Monocytes # (A) 0.5 k/uL (0-1.0); Monocytes % (A) 5 %; Neutrophils # (A) 8.5 k/uL (1.3-7.7); Neutrophils % (A) 75 %; Platelet Count 313 k/uL (150-450); RBC 4.71 m/uL (3.80-5.40); RDW 15.4 % (11.5-15.5); WBC 11.5 k/uL (3.8-10.6)
[2022-10-22 11:55] LABS: ALT 44 U/L (4-34); AST 132 U/L (14-36); African American GFR (CKD) >90 (>60 ml/min/1.73 sqM); Albumin 5.4 g/dL (3.5-5.0); Alkaline Phosphatase 104 U/L (38-126); Anion Gap 23 mmol/L; Blood Urea Nitrogen 16 mg/dL (7-17); Calcium 9.1 mg/dL (8.4-10.2); Carbon Dioxide 24 mmol/L (22-30); Chloride 100 mmol/L (98-107); Creatine Kinase 86 U/L (30-135); Glucose 122 mg/dL (74-99); Lipase 635 U/L (23-300); Magnesium 1.5 mg/dL (1.6-2.3); Non-African American GFR(CKD) >90 (>60 ml/min/1.73 sqM); Potassium 3.6 mmol/L (3.5-5.1); Sodium 147 mmol/L (137-145); Total Bilirubin 1.2 mg/dL (0.2-1.3); Total Protein 9.2 g/dL (6.3-8.2)
--- NOTE | 2022-10-22 12:04 | XR ---
EXAMINATION TYPE: XR chest 1V DATE OF EXAM: 10/22/2022 11:59 AM COMPARISON: Chest radiographs from 08/02/22. TECHNIQUE: XR chest 1V Frontal view of the chest. CLINICAL INDICATION:Female, 62 years old with history of Altered mental status; FINDINGS: Lungs/Pleura: There is no evidence of pleural effusion, focal consolidation, or pneumothorax. Pulmonary vascularity: Unremarkable. Heart/mediastinum: Cardiomediastinal silhouette is unremarkable. Musculoskeletal: No acute osseous pathology. IMPRESSION: No acute cardiopulmonary disease/process.
[2022-10-22 12:05] LABS: Lactic Acid, Venous 6.2 mmol/L (0.7-2.0)
[2022-10-22 12:06] LABS: Alcohol 459 mg/dL
--- NOTE | 2022-10-22 12:34 | ED ---
Altered Mental Status HPI - General Chief Complaint: Altered Mental Status Stated Complaint: AMS Time Seen by Provider: 10/22/22 11:10 Source: EMS, RN notes reviewed, old records reviewed Mode of arrival: EMS Limitations: altered mental status - History of Present Illness Initial Comments: 62-year-old female history of alcoholism and possible chronic pancreatitis and prior history of lactic acidosis who is brought in by EMS today after getting off a bus and found to be altered with decreased level of consciousness. No trauma reported she was brought in by EMS for evaluation. Patient himself is a poor historian she does demonstrate evidence of intoxication. MD Complaint: altered mental status, decreased responsiveness - Related Data Home Medications Medication Instructions Recorded Confirmed Acetaminophen Tab [Tylenol] 1,000 mg PO Q6H PRN 08/02/22 08/02/22 Acetaminophen/Diphenhydramine 2 tab PO HS PRN 08/02/22 08/02/22 [Tylenol PM 500-25mg] Albuterol Inhaler [Ventolin Hfa 2 puff INHALATION RT-Q4H PRN 08/02/22 08/02/22 Inhaler] Cyproheptadine [Cyproheptadine HCl] 4 mg PO TID 08/02/22 08/02/22 QUEtiapine [SEROquel] 200 mg PO HS 08/02/22 08/02/22 Previous Rx's Medication Instructions Recorded amLODIPine [Norvasc] 10 mg PO DAILY #14 tab 07/23/19 Folic Acid 1 mg PO DAILY #30 tablet 08/04/22 Thiamine [Vitamin B-1] 100 mg PO DAILY #30 tablet 08/04/22 Allergies Allergy/AdvReac Type Severity Reaction Status Date / Time ibuprofen [From Motrin] Allergy Rash on Verified 08/02/22 13:08 face & Vomiting Review of Systems ROS Statement: Those systems with pertinent positive or pertinent negative responses have been documented in the HPI. ROS Other: All systems not noted in ROS Statement are negative. Limitations: ROS unobtainable due to patients medical condition Past Medical History Past Medical History: COPD, Hypertension, Thyroid Disorder Additional Past Medical History / Comment(s): Myasthenia gravis History of Any Multi-Drug Resistant Organisms: None Reported Past Surgical History: No Surgical Hx Reported Additional Past Surgical History / Comment(s): myasthenia gravis Past Anesthesia/Blood Transfusion Reactions: No Reported Reaction Past Psychological History: Anxiety, Bipolar, Depression Smoking Status: Current every day smoker, Heavy tobacco smoker Past Alcohol Use History: Occasional Past Drug Use History: Marijuana - Past Family History Father History Unknown: Yes Mother History Unknown: Yes Sister(s) History Unknown: Yes Brother(s) History Unknown: Yes Daughter(s) Family Medical History: No Reported History Son(s) Family Medical History: No Reported History General Exam - General Exam Comments Initial Comments: This a well-developed well-nourished lethargic appearing female with the smell of alcohol conjoiners on her breath Limitations: altered mental status General appearance: alert, lethargic Head exam: Present: atraumatic, normocephalic, normal inspection Eye exam: Present: normal appearance, PERRL, EOMI. Absent: scleral icterus, conjunctival injection, periorbital swelling ENT exam: Present: mucous membranes dry Neck exam: Present: normal inspection, full ROM, other (stridor JVD or bruits). Absent: tenderness, meningismus, lymphadenopathy Respiratory exam: Present: normal lung sounds bilaterally. Absent: respiratory distress, wheezes, rales, rhonchi, stridor Cardiovascular Exam: Present: regular rate, normal rhythm, normal heart sounds. Absent: systolic murmur, diastolic murmur, rubs, gallop, clicks GI/Abdominal exam: Present: soft, normal bowel sounds. Absent: distended, tenderness, guarding, rebound, rigid, bruit, pulsatile mass Extremities exam: Present: normal inspection, full ROM, normal capillary refill. Absent: tenderness, pedal edema, joint swelling, calf tenderness Back exam: Present: normal inspection Neurological exam: Present: alert, altered (Intoxication), CN II-XII intact Psychiatric exam: Present: depressed, flat affect Skin exam: Present: warm, dry, intact, normal color. Absent: rash Course Vital Signs 10/22/22 11:11 Temperature 97.5 F L Pulse Rate 107 H Respiratory 14 Rate Blood Pressure 141/93 O2 Sat by Pulse 96 Oximetry Medical Decision Making - Medical Decision Making I did discuss the findings with Dr. Bartholomew on the patient will be admitted for inpatient evaluation and treatment of alcohol intoxication hypomagnesemia dehydration lactic acidosis secondary to dehydration. - Lab Data Result diagrams: 10/22/22 11:21 10/22/22 11:21 Lab Results 10/22/22 10/22/22 10/22/22 Range/Units 11:21 11:21 11:21 WBC 11.5 H (3.8-10.6) k/uL RBC 4.71 (3.80-5.40) m/uL Hgb 14.4 (11.4-16.0) gm/dL Hct 43.5 (34.0-46.0) % MCV 92.3 (80.0-100.0) fL MCH 30.5 (25.0-35.0) pg MCHC 33.0 (31.0-37.0) g/dL RDW 15.4 (11.5-15.5) % Plt Count 313 (150-450) k/uL MPV 9.2 Neutrophils % 75 % Lymphocytes % 19 % Monocytes % 5 % Eosinophils % 1 % Basophils % 0 % Neutrophils # 8.5 H (1.3-7.7) k/uL Lymphocytes # 2.2 (1.0-4.8) k/uL Monocytes # 0.5 (0-1.0) k/uL Eosinophils # 0.1 (0-0.7) k/uL Basophils # 0.0 (0-0.2) k/uL PT 12.0 (9.0-12.0) sec INR 1.1 (<1.2) Sodium 147 H (137-145) mmol/L Potassium 3.6 (3.5-5.1) mmol/L Chloride 100 (98-107) mmol/L Carbon Dioxide 24 (22-30) mmol/L Anion Gap 23 mmol/L BUN 16 (7-17) mg/dL Creatinine 0.54 (0.52-1.04) mg/dL Est GFR (CKD-EPI)AfAm >90 (>60 ml/min/1.73 sqM) Est GFR (CKD-EPI)NonAf >90 (>60 ml/min/1.73 sqM) Glucose 122 H (74-99) mg/dL Plasma Lactic Acid Lew (0.7-2.0) mmol/L Calcium 9.1 (8.4-10.2) mg/dL Magnesium 1.5 L (1.6-2.3) mg/dL Total Bilirubin 1.2 (0.2-1.3) mg/dL AST 132 H (14-36) U/L ALT 44 H (4-34) U/L Alkaline Phosphatase 104 (38-126) U/L Ammonia (<30) umol/L Creatine Kinase 86 (30-135) U/L Total Protein 9.2 H (6.3-8.2) g/dL Albumin 5.4 H (3.5-5.0) g/dL Lipase 635 H (23-300) U/L Serum Alcohol 459 H* mg/dL 10/22/22 Range/Units 11:21 WBC (3.8-10.6) k/uL RBC (3.80-5.40) m/uL Hgb (11.4-16.0) gm/dL Hct (34.0-46.0) % MCV (80.0-100.0) fL MCH (25.0-35.0) pg MCHC (31.0-37.0) g/dL RDW (11.5-15.5) % Plt Count (150-450) k/uL MPV Neutrophils % % Lymphocytes % % Monocytes % % Eosinophils % % Basophils % % Neutrophils # (1.3-7.7) k/uL Lymphocytes # (1.0-4.8) k/uL Monocytes # (0-1.0) k/uL Eosinophils # (0-0.7) k/uL Basophils # (0-0.2) k/uL PT (9.0-12.0) sec INR (<1.2) Sodium (137-145) mmol/L Potassium (3.5-5.1) mmol/L Chloride (98-107) mmol/L Carbon Dioxide (22-30) mmol/L Anion Gap mmol/L BUN (7-17) mg/dL Creatinine (0.52-1.04) mg/dL Est GFR (CKD-EPI)AfAm (>60 ml/min/1.73 sqM) Est GFR (CKD-EPI)NonAf (>60 ml/min/1.73 sqM) Glucose (74-99) mg/dL Plasma Lactic Acid Lew 6.2 H* (0.7-2.0) mmol/L Calcium (8.4-10.2) mg/dL Magnesium (1.6-2.3) mg/dL Total Bilirubin (0.2-1.3) mg/dL AST (14-36) U/L ALT (4-34) U/L Alkaline Phosphatase (38-126) U/L Ammonia 26 (<30) umol/L Creatine Kinase (30-135) U/L Total Protein (6.3-8.2) g/dL Albumin (3.5-5.0) g/dL Lipase (23-300) U/L Serum Alcohol mg/dL - EKG Data -: EKG Interpreted by Me EKG shows normal: sinus rhythm EKG Comments: EKG read by me shows sinus tachycardia 102 PA interval 126 QRS duration 8070 QT since QTC 355/414 also right atrial enlargement evidence a left atrial enlargement poor R-wave progression - Radiology Data Radiology results: image reviewed (I did interpret the imaging no evidence of acute processes. Evidence of degenerative joint disease on the cervical CT evidence a white matter changes on CT no acute processes) Disposition Clinical Impression: Alcoholic intoxication, Lactic acidosis, Dehydration, Hypomagnesemia Disposition: ADMITTED IP TO THIS [facility] Condition: Fair Referrals: None,Stated [Primary Care Provider] - 1-2 days Decision Date: 10/22/22 Decision Time: 13:15
[2022-10-22] MEDS ORDERED: SODIUM CHLORIDE 0.9% 1,000 ML IV STA ×2 (12:41)
[2022-10-22] MEDS ORDERED: THIAMINE 100 MG/ML 2 ML VIAL IM STA (12:42)
--- NOTE | 2022-10-22 13:13 | CT ---
EXAMINATION TYPE: CT brain cspine wo con CT DLP: 1275.1 mGycm, Automated exposure control for dose reduction was used. DATE OF EXAM: 10/22/2022 1:04 PM COMPARISON: None.. CLINICAL INDICATION:Female, 62 years old with history of Altered mental status; AMS TECHNIQUE: Brain: Multiple axial CT images of the brain were obtained without IV contrast. Cspine: Axial CT images from the skull base to the inferior aspect of T2 we obtained without intraven ous contrast. Coronal and sagittal reformatted images were also reviewed. FINDINGS: Brain: Extra-axial spaces: No abnormal extra-axial fluid collections. Ventricular system: Within normal limits Cerebral parenchyma: No acute intraparenchymal hemorrhage or mass effect. The farias-white junction is well differentiated. Scattered hypoattenuating areas are seen within the white matter. Cerebellum: Unremarkable. Mass effect: No evidence of midline shift. Intracranial vasculature: Atherosclerotic calcifications of the intracranial vessels. Soft tissues: Normal. Calvarium/osseous structures: No depressed skull fracture. Paranasal sinuses and mastoid air cells: Mild mucosal thickening of the left maxillary sinus. The mas toid air cells are clear. Visualized orbits: Orbital contents are intact. Cervical spine: Fracture: None. Osseous structures: Unremarkable Vertebral alignment: Straightening of the cervical spine which may be due to patient position versus muscle spasm. Spinal canal/Neural Foramina: Disc osteophyte complexes at C4-5, C6-C7, C7-T1 with at least mild spin al canal stenosis. Facet joint uncovertebral joint arthropathy scattered throughout the cervical spin e with varying degrees of neural foraminal stenosis. Neck soft tissues: Prevertebral soft tissues are within normal limits. Other: The airway is patent. Mild centrilobular emphysematous changes. IMPRESSION: 1. No acute intracranial process. 2. Nonspecific white matter changes, likely secondary to chronic small vessel ischemic disease. 3. No evidence of cervical spine fracture. 4. Mild multilevel degenerative disc disease.
[2022-10-22] MEDS: MAGNESIUM SULFATE-D5W PMX 1 GM in DEXTROSE/WATER 1 100ML.BAG IVPB SCH ×2 (13:19→14:42)
[2022-10-22] MEDS ORDERED: NALOXONE 0.4 MG/ML 1 ML VIAL IV PRN (13:25)
[2022-10-22] MEDS ORDERED: ONDANSETRON 4 MG/2 ML VIAL IVP PRN (13:25)
[2022-10-22] MEDS: SODIUM CHLORIDE 0.9% 1,000 ML IV SCH ×2 (13:38→20:37)
[2022-10-22 13:49] LABS: Appearance,Urine Clear (Clear); Bacteria,Urine Rare /hpf; Bilirubin,Urine Negative (Negative); Blood,Urine Trace (Negative); Budding Yeast,Urine Occasional /hpf; Color,Urine Light Yellow; Glucose,Urine (UA) Negative (Negative); Ketones,Urine Negative (Negative); Leukocyte Esterase,Urine Moderate (Negative); Nitrite,Urine Negative (Negative); Protein,Urine 1+ (Negative); RBC,Urine 3 /hpf (0-5); Specific Gravity,Urine 1.005 (1.001-1.035); Squamous Epithelial Cell,Urine 3 /hpf (0-4); Urobilinogen,Urine <2.0 mg/dL (<2.0); WBC,Urine 3 /hpf (0-5)
[2022-10-22 13:58] LABS: Amphetamine Screen,Urine Not Detected (NotDetected); Barbiturate Screen,Urine Not Detected (NotDetected); Benzodiazepines Screen,Urine Not Detected (NotDetected); Cocaine Screen,Urine Not Detected (NotDetected); Methadone Screen, Urine Not Detected (NotDetected); Opiate Screen,Urine Detected (NotDetected); Oxycodone Screen, Urine Not Detected (NotDetected); Phencyclidine Screen,Urine Not Detected (NotDetected); Tricyclic Antidepressant,Urine Not Detected (NotDetected); Urn Cannabinoid Scrn Detected (NotDetected)
--- NOTE | 2022-10-22 14:10 | P.HPIM ---
History of Present Illness H&P Date: 10/22/22 History of Presenting Illness: Patient is a 62-year-old female with a past medical history of alcoholism, hypertension, COPD, nicotine dependence and chronic pancreatitis. She presented to the emergency department via EMS for reports of alteration in mental status. Patient was reported to be riding the bus and appeared altered or under the influence and upon getting off bystanders were concerned and called EMS for evaluation. Upon arrival to the hospital patient is inebriated and smells strongly of alcohol. Patient was able to answer some questions but quickly drifted back to sleep. Unable to obtain a full review of systems secondary to patient's mentation/impairment due to alcohol intoxication. Upon arrival to the hospital patient underwent full evaluation she was found to be intoxicated with serum alcohol level of 459. A CT head and cervical spine was completed secondary to patient's mentation and this was negative for acute intercranial process and showed no evidence of cervical spinal fracture. CBC revealed mild leukocytosis with WBC count of 11.5, coags showing no significant abnormalities. CMP revealing hypernatremia with elevated sodium of 147, hypomagnesemia with magnesium of 1.5, and elevated liver enzymes with AST 132 and ALT of 44. Lipase also elevated at 635. EKG completed revealing sinus tachycardia at 102 bpm. Chest x-ray negative for acute cardiopulmonary process. Urinalysis negative for infection. Urine drug screen positive for opiates and marijuana. Patient admitted under our services at this time. Review of systems: A complete review of systems was unable to be performed at this time secondary to altered mental status resulting from acute intoxication with blood alcohol level of 459. Physical exam: Vital signs reviewed and stable. General: Nontoxic, Thin and frail, emaciated. Derm: Skin warm and dry, normal coloration for ethnicity. Head: Atraumatic, normocephalic and symmetric. Eyes: Pupils equal, no lid lag, and anicteric sclera Mouth: no lip lesions, mucus membranes moist Cardiovascular: regular rate and rhythm with normal S1S2, no murmur, positive posterior tibial pulses bilaterally, and cap refill < 2 seconds. Lungs: Respirations even, regular, and unlabored on room air. Lungs CTA yoselin aterally, no rhonchi, no rales, no wheezing, and no accessory muscle usage. Abdominal: soft distended, nontender to palpation, no guarding, no appreciable organomegaly Ext:Moving all extremities independently. No gross muscle atrophy, no edema, no contractures Neuro: Patient only answering limited questions and following limited commands secondary to acute alcohol intoxication. Psych: Patient only answering limited questions, smells strongly of alcohol, drifting in and out of sleep. Assessment and Plan of Care: Alcohol intoxication Lactic acidosis, likely secondary to acute alcohol intoxication as patient shows no signs of infection. Hypomagnesemia secondary to above Hypernatremia secondary to dehydration resulting from acute alcohol intoxication -[facility] Protocol with symptom triggered medication management with benzodiaz epines. -Pt to receive continuous IV fluid hydration. -Thiamine 100 mg twice a day -Multivitamin daily -Folate 1 mg daily -Seizure, fall, aspiration, and elopement precautions in place. -Urine drug screen positive for opiates and marijuana -Continued close monitoring of electrolytes and replace as needed. -Telemetry monitoring. -Neuro checks every 4 hours Hypertension -Continue daily medication regimen with amlodipine. CODE STATUS: Full code DVT prophylaxis: Heparin Discussed with: Patient and RN Anticipated discharge date: 1-[address]: Home A total of 46 minutes was spent on the care of this complex patient more than 50% of the time was spent in counseling and care coordination. Past Medical History Past Medical History: COPD, Hypertension, Thyroid Disorder Additional Past Medical History / Comment(s): Myasthenia gravis History of Any Multi-Drug Resistant Organisms: None Reported Past Surgical History: No Surgical Hx Reported Additional Past Surgical History / Comment(s): myasthenia gravis Past Anesthesia/Blood Transfusion Reactions: No Reported Reaction Past Psychological History: Anxiety, Bipolar, Depression Smoking Status: Current every day smoker, Heavy tobacco smoker Past Alcohol Use History: Occasional Past Drug Use History: Marijuana - Past Family History Father History Unknown: Yes Mother History Unknown: Yes Sister(s) History Unknown: Yes Brother(s) History Unknown: Yes Daughter(s) Family Medical History: No Reported History Son(s) Family Medical History: No Reported History Medications and Allergies Home Medications Medication Instructions Recorded Confirmed Type amLODIPine [Norvasc] 10 mg PO DAILY #14 tab 07/23/19 10/22/22 Rx Acetaminophen Tab [Tylenol] 1,000 mg PO Q6H PRN 08/02/22 10/22/22 History Acetaminophen/Diphenhydramine 2 tab PO HS PRN 08/02/22 10/22/22 History [Tylenol PM 500-25mg] Albuterol Inhaler [Ventolin Hfa 2 puff INHALATION RT-Q4H PRN 08/02/22 10/22/22 History Inhaler] Cyproheptadine [Cyproheptadine HCl] 4 mg PO TID 08/02/22 10/22/22 History QUEtiapine [SEROquel] 200 mg PO HS 08/02/22 10/22/22 History Folic Acid 1 mg PO DAILY #30 tablet 08/04/22 10/22/22 Rx Thiamine [Vitamin B-1] 100 mg PO DAILY #30 tablet 08/04/22 10/22/22 Rx HYDROcodone/APAP 5-325MG [Whiting 0.5 tab PO QID PRN 10/22/22 10/22/22 History 5-325] tiZANidine [Zanaflex] 4 mg PO Q8HR PRN 10/22/22 10/22/22 History Allergies Allergy/AdvReac Type Severity Reaction Status Date / Time ibuprofen [From Motrin] Allergy Rash on Verified 10/22/22 13:39 face & Vomiting Physical Exam Vitals: Vital Signs Temp Pulse Resp BP Pulse Ox 10/22/22 13:24 89 18 163/99 96 10/22/22 11:11 97.5 F L 107 H 14 141/93 96 Intake and Output 10/21/22 10/22/22 10/22/22 22:59 06:59 14:59 Other: Weight 53.705 kg Results CBC & Chem 7: 10/22/22 11:21 10/22/22 11:21 Labs: Abnormal Lab Results - Last 24 Hours (Table) 10/22/22 10/22/22 10/22/22 Range/Units 11:21 11: 11:21 WBC 11.5 H (3.8-10.6) k/uL Neutrophils # 8.5 H (1.3-7.7) k/uL Sodium 147 H (137-145) mmol/L Glucose 122 H (74-99) mg/dL Plasma Lactic Acid Lew (0.7-2.0) mmol/L Magnesium 1.5 L (1.6-2.3) mg/dL AST 132 H (14-36) U/L ALT 44 H (4-34) U/L Total Protein 9.2 H (6.3-8.2) g/dL Albumin 5.4 H (3.5-5.0) g/dL Lipase 635 H (23-300) U/L Urine Protein 1+ H (Negative) Urine Blood Trace H (Negative) Ur Leukocyte Esterase Moderate H (Negative) Urine Bacteria Rare H (None) /hpf Urine Yeast (Budding) Occasional H (None) /hpf Urine Opiates Screen Detected H (NotDetected) U Marijuana (THC) Screen Detected H (NotDetected) Serum Alcohol 459 H* mg/dL 10/22/22 Range/Units 11:21 WBC (3.8-10.6) k/uL Neutrophils # (1.3-7.7) k/uL Sodium (137-145) mmol/L Glucose (74-99) mg/dL Plasma Lactic Acid Lew 6.2 H* (0.7-2.0) mmol/L Magnesium (1.6-2.3) mg/dL AST (14-36) U/L ALT (4-34) U/L Total Protein (6.3-8.2) g/dL Albumin (3.5-5.0) g/dL Lipase (23-300) U/L Urine Protein (Negative) Urine Blood (Negative) Ur Leukocyte Esterase (Negative) Urine Bacteria (None) /hpf Urine Yeast (Budding) (None) /hpf Urine Opiates Screen (NotDetected) U Marijuana (THC) Screen (NotDetected) Serum Alcohol mg/dL
[2022-10-22] MEDS: amLODIPine 10 MG TAB PO SCH (18:29)
[2022-10-22] MEDS: QUEtiapine 200 MG TAB PO SCH (20:37)
[2022-10-22] MEDS: LORazepam 1 MG TAB PO PRN (20:42)
[2022-10-23] MEDS: HEPARIN SODIUM,PORCINE/PF 5,000 UNIT/0.5 ML SYRINGE SQ SCH ×4 (00:01→16:37)
[2022-10-23] MEDS: SODIUM CHLORIDE 0.9% 1,000 ML IV SCH ×3 (04:03→16:39)
[2022-10-23] MEDS: FOLIC ACID 1 MG TAB PO SCH (08:36)
[2022-10-23] MEDS: THIAMINE 100 MG TAB PO SCH (08:36)
[2022-10-23] MEDS: MULTIVITAMINS, THERA 1 EACH TAB PO SCH (08:36)
[2022-10-23] MEDS: amLODIPine 10 MG TAB PO SCH (08:36)
[2022-10-23] MEDS: ALBUTEROL NEBULIZED 2.5 MG/3 ML INHALATION PRN (08:42)
[2022-10-23 09:09] LABS: African American GFR (CKD) >90 (>60 ml/min/1.73 sqM); Anion Gap 9 mmol/L; Blood Urea Nitrogen 12 mg/dL (7-17); Calcium 7.5 mg/dL (8.4-10.2); Carbon Dioxide 22 mmol/L (22-30); Chloride 107 mmol/L (98-107); Glucose 70 mg/dL (74-99); Non-African American GFR(CKD) >90 (>60 ml/min/1.73 sqM); Potassium 4.1 mmol/L (3.5-5.1); Sodium 138 mmol/L (137-145)
--- NOTE | 2022-10-23 11:33 | P.PN ---
Subjective Progress Note Date: 10/23/22 Principal diagnosis: alcohol intoxication Hospital Course: 62-year-old female with history of alcoholism, hypertension, COPD, nicotine dependence, and chronic pancreatitis presenting with altered mental status, and alcohol intoxication. Serum alcohol level on presentation was 459. CT head and cervical spine were negative for any acute intracranial processes or fractures. CBC showed WBC of 11.5. Sodium elevated to 147, magnesium 1.5, mildly elevated AST to ALT ratio. Lipase elevated to 635. Lactic acid elevated at 6.2. EKG showed sinus tachycardia at 102 BPM. Chest x-ray negative for any acute process. Urinalysis negative for infection. Urine drug screen positive for opiates and marijuana. Subjective: Patient seen and examined at bedside. No acute events overnight. She still complaining of shakiness, and frontal headache. She denies any chest pain, shortness of breath, abdominal pain, nausea, vomiting, diarrhea, constipation or urinary complaints. Pertinent positives and negatives as discussed above, a complete review of systems was performed and all other systems are negative. Vitals Signs Reviewed. General: nontoxic, no distress, appears at stated age Derm: warm, dry Head: atraumatic, normocephalic, symmetric Eyes: EOMI, no lid lag, anicteric sclera Mouth: no lip lesion, mucus membranes moist Cardiovascular: S1S2 reg, no murmur Lungs: CTA bilateral, no rhonchi, no rales , no accessory muscle use Abdominal: soft, nontender to palpation, no guarding, no appreciable organomegaly Ext: no gross muscle atrophy, no edema, no contractures Neuro: CN II-XI grossly intact, no focal neuro deficits, mild tremor in upper extremities Psych: Alert, oriented, appropriate affect Assessment and Plan: Alcohol intoxication, impending withdrawal Lactic acidosis - resolved Dehydration Hypovolemic Hypernatremia - resolved Hypomagnesemia -[facility] Protocol with symptom triggered medication management with benzodiazepines. -Pt to receive continuous IV fluid hydration -Thiamine daily -Multivitamin daily -Folate 1 mg daily -Seizure, fall, aspiration, and elopement precautions in place. -Urine drug screen positive for opiates and marijuana -Continued close monitoring of electrolytes and replace as needed -Telemetry monitoring. -Neuro checks every 4 hours Frontal headache - tylenol PRN Chronic medical problems: COPD Hypertension -Continue daily medication regimen with amlodipine. DVT ppx: heparin sq Code status: full code Anticipated discharge place: home Anticipated discharge time: 2-3 days Objective - Vital Signs Vital signs: Vital Signs Temp 98.3 F 10/23/22 08:00 Pulse 106 H 10/23/22 08:55 Resp 16 10/23/22 08:00 BP 163/69 10/23/22 08:00 Pulse Ox 91 L 10/23/22 08:45 FiO2 Intake & Output 10/22/22 10/23/22 10/23/22 18:59 06:59 18:59 Intake Total 360 0 Balance 360 0 Weight 53.705 kg Intake: Oral 360 0 - Labs CBC & Chem 7: 10/22/22 11:21 10/23/22 08:24 Labs: Abnormal Lab Results - Last 24 Hours (Table) 10/22/22 10/22/22 10/22/22 Range/Units 11:21 11:21 11:21 WBC 11.5 H (3.8-10.6) k/uL Neutrophils # 8.5 H (1.3-7.7) k/uL Sodium 147 H (137-145) mmol/L Glucose 122 H (74-99) mg/dL Plasma Lactic Acid Lew (0.7-2.0) mmol/L Calcium (8.4-10.2) mg/dL Magnesium 1.5 L (1.6-2.3) mg/dL AST 132 H (14-36) U/L ALT 44 H (4-34) U/L Total Protein 9.2 H (6.3-8.2) g/dL Albumin 5.4 H (3.5-5.0) g/dL Lipase 635 H (23-300) U/L Urine Protein 1+ H (Negative) Urine Blood Trace H (Negative) Ur Leukocyte Esterase Moderate H (Negative) Urine Bacteria Rare H (None) /hpf Urine Yeast (Budding) Occasional H (None) /hpf Urine Opiates Screen Detected H (NotDetected) U Marijuana (THC) Screen Detected H (NotDetected) Serum Alcohol 459 H* mg/dL 10/22/22 10/22/22 10/22/22 Range/Units 11:21 14:22 18:25 WBC (3.8-10.6) k/uL Neutrophils # (1.3-7.7) k/uL Sodium (137-145) mmol/L Glucose (74-99) mg/dL Plasma Lactic Acid Lew 6.2 H* 5.5 H* 3.9 H* (0.7-2.0) mmol/L Calcium (8.4-10.2) mg/dL Magnesium (1.6-2.3) mg/dL AST (14-36) U/L ALT (4-34) U/L Total Protein (6.3-8.2) g/dL Albumin (3.5-5.0) g/dL Lipase (23-300) U/L Urine Protein (Negative) Urine Blood (Negative) Ur Leukocyte Esterase (Negative) Urine Bacteria (None) /hpf Urine Yeast (Budding) (None) /hpf Urine Opiates Screen (NotDetected) U Marijuana (THC) Screen (NotDetected) Serum Alcohol mg/dL 10/22/22 10/23/22 Range/Units 21:35 08:24 WBC (3.8-10.6) k/uL Neutrophils # (1.3-7.7) k/uL Sodium (137-145) mmol/L Glucose 70 L (74-99) mg/dL Plasma Lactic Acid Lew 2.9 H* (0.7-2.0) mmol/L Calcium 7.5 L (8.4-10.2) mg/dL Magnesium (1.6-2.3) mg/dL AST (14-36) U/L ALT (4-34) U/L Total Protein (6.3-8.2) g/dL Albumin (3.5-5.0) g/dL Lipase (23-300) U/L Urine Protein (Negative) Urine Blood (Negative) Ur Leukocyte Esterase (Negative) Urine Bacteria (None) /hpf Urine Yeast (Budding) (None) /hpf Urine Opiates Screen (NotDetected) U Marijuana (THC) Screen (NotDetected) Serum Alcohol mg/dL
[2022-10-23] MEDS: LORazepam 1 MG TAB PO PRN (12:28)
[2022-10-23] MEDS: QUEtiapine 200 MG TAB PO SCH (20:21)
[2022-10-24] MEDS: HEPARIN SODIUM,PORCINE/PF 5,000 UNIT/0.5 ML SYRINGE SQ SCH ×4 (00:57→23:47)
[2022-10-24] MEDS: SODIUM CHLORIDE 0.9% 1,000 ML IV SCH ×3 (06:23→23:00)
[2022-10-24] MEDS: ALBUTEROL NEBULIZED 2.5 MG/3 ML INHALATION PRN (08:43)
[2022-10-24] MEDS: THIAMINE 100 MG TAB PO SCH (09:16)
[2022-10-24] MEDS: MULTIVITAMINS, THERA 1 EACH TAB PO SCH (09:16)
[2022-10-24] MEDS: LORazepam 1 MG TAB PO PRN ×2 (09:16→12:15)
[2022-10-24] MEDS: FOLIC ACID 1 MG TAB PO SCH (09:16)
[2022-10-24] MEDS: amLODIPine 10 MG TAB PO SCH (09:16)
--- NOTE | 2022-10-24 11:26 | P.PN ---
Subjective Progress Note Date: 10/24/22 Principal diagnosis: alcohol intoxication Hospital Course: 62-year-old female with history of alcoholism, hypertension, COPD, nicotine dependence, and chronic pancreatitis presenting with altered mental status, and alcohol intoxication. Serum alcohol level on presentation was 459. CT head and cervical spine were negative for any acute intracranial processes or fractures. CBC showed WBC of 11.5. Sodium elevated to 147, magnesium 1.5, mildly elevated AST to ALT ratio. Lipase elevated to 635. Lactic acid elevated at 6.2. EKG showed sinus tachycardia at 102 BPM. Chest x-ray negative for any acute process. Urinalysis negative for infection. Urine drug screen positive for opiates and marijuana. She is currently on Ativan as needed protocol for alcohol withdrawal. Lactic acid improved with IV fluids. Patient still having difficulty with oral intake. Subjective: Patient seen and examined at bedside. No acute events overnight. Still having difficulty with oral intake. She is having some nausea. She denies any chest pain, shortness of breath, abdominal pain, vomiting, diarrhea, constipation or urinary complaints. Pertinent positives and negatives as discussed above, a complete review of systems was performed and all other systems are negative. Vitals Signs Reviewed. General: nontoxic, no distress, appears at stated age Derm: warm, dry Head: atraumatic, normocephalic, symmetric Eyes: EOMI, no lid lag, anicteric sclera Mouth: no lip lesion, mucus membranes moist Cardiovascular: S1S2 reg, no murmur Lungs: CTA bilateral, no rhonchi, no rales , no accessory muscle use Abdominal: soft, nontender to palpation, no guarding, no appreciable organomegaly Ext: no gross muscle atrophy, no edema, no contractures Neuro: CN II-XI grossly intact, no focal neuro deficits Psych: Alert, oriented, appropriate affect Assessment and Plan: Alcohol intoxication, impending withdrawal Lactic acidosis - resolved Dehydration Hypovolemic Hypernatremia - resolved Hypomagnesemia -repeat level pending Polysubstance abuse -[facility] Protocol with symptom triggered medication management with benzodiazepines. -Pt to receive continuous IV fluid hydration -Thiamine and folic acid -Seizure, fall, aspiration, and elopement precautions in place. -Telemetry monitoring. -Neuro checks every 4 hours Frontal headache - tylenol PRN Chronic medical problems: COPD Hypertension -Continue daily medication regimen with amlodipine. DVT ppx: heparin sq Code status: full code Anticipated discharge place: home Anticipated discharge time: Likely tomorrow Objective - Vital Signs Vital signs: Vital Signs Temp 98.1 F 10/24/22 04:00 Pulse 105 H 10/24/22 09:42 Resp 17 10/24/22 09:42 BP 127/86 10/24/22 09:41 Pulse Ox 96 10/24/22 09:41 FiO2 Intake & Output 10/23/22 10/24/22 10/24/22 18:59 06:59 18:59 Intake Total 236 Balance 236 Intake: Oral 236 Other: Voiding Method External Catheter External Catheter # Voids 3 # Bowel Movements 1 - Labs CBC & Chem 7: 10/22/22 11:21 10/23/22 08:24
[2022-10-24] MEDS: ACETAMINOPHEN TAB 500 MG TAB PO PRN (12:14)
[2022-10-24 12:37] LABS: African American GFR (CKD) >90 (>60 ml/min/1.73 sqM); Anion Gap 6 mmol/L; Blood Urea Nitrogen 7 mg/dL (7-17); Calcium 8.2 mg/dL (8.4-10.2); Carbon Dioxide 27 mmol/L (22-30); Chloride 102 mmol/L (98-107); Glucose 133 mg/dL (74-99); Non-African American GFR(CKD) >90 (>60 ml/min/1.73 sqM); Potassium 3.5 mmol/L (3.5-5.1); Sodium 135 mmol/L (137-145)
[2022-10-24] MEDS: MAGNESIUM SULFATE-D5W PMX 1 GM in DEXTROSE/WATER 1 100ML.BAG IVPB SCH ×4 (15:53→19:03)
[2022-10-24] MEDS: QUEtiapine 200 MG TAB PO SCH (20:06)
[2022-10-25] MEDS: SODIUM CHLORIDE 0.9% 1,000 ML IV SCH ×3 (06:44→15:26)
[2022-10-25] MEDS: HEPARIN SODIUM,PORCINE/PF 5,000 UNIT/0.5 ML SYRINGE SQ SCH ×4 (07:44→23:13)
[2022-10-25] MEDS: amLODIPine 10 MG TAB PO SCH (07:44)
[2022-10-25] MEDS: THIAMINE 100 MG TAB PO SCH (07:45)
[2022-10-25] MEDS: MULTIVITAMINS, THERA 1 EACH TAB PO SCH (07:45)
[2022-10-25] MEDS: FOLIC ACID 1 MG TAB PO SCH (07:45)
[2022-10-25 12:25] LABS: African American GFR (CKD) >90 (>60 ml/min/1.73 sqM); Anion Gap 8 mmol/L; Blood Urea Nitrogen 6 mg/dL (7-17); Calcium 8.6 mg/dL (8.4-10.2); Carbon Dioxide 24 mmol/L (22-30); Chloride 106 mmol/L (98-107); Glucose 130 mg/dL (74-99); Magnesium 1.4 mg/dL (1.6-2.3); Non-African American GFR(CKD) >90 (>60 ml/min/1.73 sqM); Potassium 3.3 mmol/L (3.5-5.1); Sodium 138 mmol/L (137-145)
[2022-10-25] MEDS ORDERED: POTASSIUM CHLORIDE ER 20 MEQ TAB.ER PO STA (13:09)
--- NOTE | 2022-10-25 13:12 | P.PN ---
Subjective Progress Note Date: 10/25/22 Principal diagnosis: alcohol intoxication Hospital Course: 62-year-old female with history of alcoholism, hypertension, COPD, nicotine dependence, and chronic pancreatitis presenting with altered mental status, and alcohol intoxication. Serum alcohol level on presentation was 459. CT head and cervical spine were negative for any acute intracranial processes or fractures. CBC showed WBC of 11.5. Sodium elevated to 147, magnesium 1.5, mildly elevated AST to ALT ratio. Lipase elevated to 635. Lactic acid elevated at 6.2. EKG showed sinus tachycardia at 102 BPM. Chest x-ray negative for any acute process. Urinalysis negative for infection. Urine drug screen positive for opiates and marijuana. She is currently on Ativan as needed protocol for al cohol withdrawal. Lactic acid improved with IV fluids. Patient still having difficulty with oral intake, but improving. Continues to have hypomagnesemia and hypokalemia, being repleted. Subjective: Patient seen and examined at bedside. No acute events overnight. Oral intake slowly improving. She is having some nausea and had emesis last night. She denies any chest pain, shortness of breath, abdominal pain, diarrhea, constipation or urinary complaints. Pertinent positives and negatives as discussed above, a complete review of systems was performed and all other systems are negative. Vitals Signs Reviewed. General: nontoxic, no distress, appears at stated age Derm: warm, dry Head: atraumatic, normocephalic, symmetric Eyes: EOMI, no lid lag, anicteric sclera Mouth: no lip lesion, mucus membranes moist Cardiovascular: S1S2 reg, no murmur Lungs: CTA bilateral, no rhonchi, no rales , no accessory muscle use Abdominal: soft, nontender to palpation, no guarding, no appreciable or ganomegaly Ext: no gross muscle atrophy, no edema, no contractures Neuro: CN II-XI grossly intact, no focal neuro deficits Psych: Alert, oriented, appropriate affect Assessment and Plan: Alcohol intoxication, impending withdrawal Lactic acidosis - resolved Dehydration Hypovolemic Hypernatremia - resolved Hypomagnesemia Hypokalemia Polysubstance abuse -[facility] Protocol with symptom triggered medication management with benzodiazepines. -Pt to receive continuous IV fluid hydration -Thiamine and folic acid -Seizure, fall, aspiration, and elopement precautions in place. -Telemetry monitoring. -Neuro checks every 4 hours -Replete electrolytes Frontal headache - tylenol PRN Chronic medical problems: COPD Hypertension -Continue daily medication regimen with amlodipine. DVT ppx: heparin sq Code status: full code Anticipated discharge place: home Anticipated discharge time: Likely tomorrow Objective - Vital Signs Vital signs: Vital Signs Temp 98.3 F 10/25/22 11:43 Pulse 92 10/25/22 11:43 Resp 18 10/25/22 11:43 BP 106/72 10/25/22 11:43 Pulse Ox 99 10/25/22 11:43 FiO2 Intake & Output 10/24/22 10/25/22 10/25/22 18:59 06:59 18:59 Intake Total 236 Output Total 800 1300 650 Balance -163 -1878 -473 Intake: Oral 236 Output: Urine 800 1300 650 Other: Voiding Method External Catheter External Catheter External Catheter # Bowel Movements 0 - Labs CBC & Chem 7: 10/22/22 11:21 10/25/22 10:59 Labs: Abnormal Lab Results - Last 24 Hours (Table) 10/25/22 Range/Units 10:59 Potassium 3.3 L (3.5-5.1) mmol/L BUN 6 L (7-17) mg/dL Creatinine 0.44 L (0.52-1.04) mg/dL Glucose 130 H (74-99) mg/dL Magnesium 1.4 L (1.6-2.3) mg/dL
[2022-10-25] MEDS: MAGNESIUM SULFATE-D5W PMX 1 GM in DEXTROSE/WATER 1 100ML.BAG IVPB SCH ×4 (14:00→18:07)
[2022-10-25] MEDS ORDERED: BENZONATATE 100 MG CAP PO PRN (18:46)
[2022-10-25] MEDS: ACETAMINOPHEN TAB 500 MG TAB PO PRN (19:56)
[2022-10-25] MEDS: QUEtiapine 200 MG TAB PO SCH (19:56)
[2022-10-25] MEDS: LORazepam 1 MG TAB PO PRN (23:11)
[2022-10-26 03:55] VITALS: RESP 16
[2022-10-26 06:20] LABS: Glucose,Whole Blood 102 mg/dL (70-110)
[2022-10-26] MEDS: SODIUM CHLORIDE 0.9% 1,000 ML IV SCH ×2 (06:42→10:42)
[2022-10-26 08:46] VITALS: BP 134/91; PULSE 82; TEMP 98.2
[2022-10-26] MEDS: HEPARIN SODIUM,PORCINE/PF 5,000 UNIT/0.5 ML SYRINGE SQ SCH (08:47)
[2022-10-26] MEDS: amLODIPine 10 MG TAB PO SCH (08:47)
[2022-10-26] MEDS: MULTIVITAMINS, THERA 1 EACH TAB PO SCH (08:47)
[2022-10-26] MEDS: THIAMINE 100 MG TAB PO SCH (08:47)
[2022-10-26] MEDS: FOLIC ACID 1 MG TAB PO SCH (08:47)
[2022-10-26 10:16] LABS: African American GFR (CKD) >90 (>60 ml/min/1.73 sqM); Anion Gap 7 mmol/L; Blood Urea Nitrogen 6 mg/dL (7-17); Calcium 8.6 mg/dL (8.4-10.2); Carbon Dioxide 26 mmol/L (22-30); Chloride 107 mmol/L (98-107); Glucose 122 mg/dL (74-99); Magnesium 1.7 mg/dL (1.6-2.3); Non-African American GFR(CKD) >90 (>60 ml/min/1.73 sqM); Sodium 140 mmol/L (137-145)
[2022-10-26 10:23] LABS: Potassium 3.6 mmol/L (3.5-5.1)
--- NOTE | 2022-10-26 11:26 | P.DS ---
Providers Date of admission: 10/22/22 13:25 Expected date of discharge: 10/26/22 Attending physician: Josue Burger MD Primary care physician: Stated None Hospital Course: Discharge Diagnosis: Alcohol intoxication Alcohol withdrawal Lactic acidosis Dehydration Hypovolemic hypernatremia Hypomagnesemia Hypokalemia Polysubstance abuse COPD not in exacerbation History of Hypertension Hospital Course: 62-year-old female with history of alcoholism, hypertension, COPD, nicotine dependence, and chronic pancreatitis presenting with altered mental status, and alcohol intoxication. Serum alcohol level on presentation was 459. CT head and cervical spine were negative for any acute intracranial processes or fractures. CBC showed WBC of 11.5. Sodium elevated to 147, magnesium 1.5, mildly elevated AST to ALT ratio. Lipase elevated to 635. Lactic acid elevated at 6.2. EKG showed sinus tachycardia at 102 BPM. Chest x-ray negative for any acute process. Urinalysis negative for infection. Urine drug screen positive for opiates and marijuana. She received Ativan as needed per protocol for alcohol withdrawal. Lactic acid improved with IV fluids. Patient able to not tolerate oral intake. Hypomagnesemia and hypokalemia resolved at discharge. Patient seen and examined at bedside. Vital signs reviewed and stable. General: nontoxic, no distress, appears at stated age Derm: warm, dry Head: atraumatic, normocephalic, symmetric Eyes: EOMI, no lid lag, anicteric sclera Mouth: no lip lesion, mucus membranes moist Cardiovascular: S1S2 reg, no murmur Lungs: CTA bilateral, no rhonchi, no rales , no accessory muscle use Abdominal: soft, nontender to palpation, no guarding, no appreciable organomegaly Ext: no gross muscle atrophy, no edema, no contractures Neuro: CN II-XI grossly intact, no focal neuro deficits Psych: Alert, oriented, appropriate affect A total of 38 minutes of time were spent preparing this complex discharge summary. Patient was discharged on 10/26/22 at 10:36. Patient Condition at Discharge: Stable Plan - Discharge Summary Discharge Rx Participant: No New Discharge Prescriptions: New Benzonatate [Tessalon Perles] 100 mg PO TID PRN #20 cap PRN Reason: Cough Continue amLODIPine [Norvasc] 10 mg PO DAILY #14 tab QUEtiapine [SEROquel] 200 mg PO HS Thiamine [Vitamin B-1] 100 mg PO DAILY #30 tablet Acetaminophen Tab [Tylenol] 1,000 mg PO Q6H PRN PRN Reason: Pain Albuterol Inhaler [Ventolin Hfa Inhaler] 2 puff INHALATION RT-Q4H PRN PRN Reason: Shortness Of Breath Folic Acid 1 mg PO DAILY #30 tablet Discontinued HYDROcodone/APAP 5-325MG [[place] 5-325] 0.5 tab PO QID PRN PRN Reason: Pain Acetaminophen/Diphenhydramine [Tylenol PM 500-25mg] 2 tab PO HS PRN PRN Reason: Pain Cyproheptadine [Cyproheptadine HCl] 4 mg PO TID tiZANidine [Zanaflex] 4 mg PO Q8HR PRN PRN Reason: Muscle Pain Discharge Medication List amLODIPine [Norvasc] 10 mg PO DAILY #14 tab 07/23/19 [Rx] Acetaminophen Tab [Tylenol] 1,000 mg PO Q6H PRN 08/02/22 [History] Albuterol Inhaler [Ventolin Hfa Inhaler] 2 puff INHALATION RT-Q4H PRN 08/02/22 [History] QUEtiapine [SEROquel] 200 mg PO HS 08/02/22 [History] Folic Acid 1 mg PO DAILY #30 tablet 08/04/22 [Rx] Thiamine [Vitamin B-1] 100 mg PO DAILY #30 tablet 08/04/22 [Rx] Benzonatate [Tessalon Perles] 100 mg PO TID PRN #20 cap 10/26/22 [Rx] Follow up Appointment(s)/Referral(s): None,Stated [Primary Care Provider] - 1-2 days Patient Instructions/Handouts: Abuse of Alcohol (DC) Activity/Diet/Wound Care/Special Instructions: Please see a PCP in 1-2 days. Discharge/Stand Alone Forms: AA Meetings [place], [facility], Outpatient Counseling, In Substance Abuse Facilities Discharge Disposition: HOME SELF-CARE
== END 2022-10-26 12:16 | disposition home or self-care (01) | DRG 897 ==
LOC: EC 11:10 → 3SCARD 13:25 → 5NMEDONC 15:46 → 3SCARD 16:54 → 4SSUR 10-25 21:09
PROVIDERS: ADMIT Family Medicine; ATTEND Family Medicine
DX: F10.229 Alcohol dependence with intoxication, unspecified (principal); E87.0 Hyperosmolality and hypernatremia; E87.20 Acidosis, unspecified; K86.1 Other chronic pancreatitis; F10.239 Alcohol dependence with withdrawal, unspecified; D72.829 Elevated white blood cell count, unspecified; E83.42 Hypomagnesemia; E86.0 Dehydration; E86.1 Hypovolemia; E07.9 Disorder of thyroid, unspecified; R74.01 Elevation of levels of liver transaminase levels; E87.6 Hypokalemia; F19.10 Other psychoactive substance abuse, uncomplicated; F17.210 Nicotine dependence, cigarettes, uncomplicated; F31.9 Bipolar disorder, unspecified; F41.9 Anxiety disorder, unspecified; G70.00 Myasthenia gravis without (acute) exacerbation; I10 Essential (primary) hypertension; J44.9 Chronic obstructive pulmonary disease, unspecified; Y90.8 Blood alcohol level of 240 mg/100 ml or more; Z79.899 Other long term (current) drug therapy; Z28.310 Unvaccinated for COVID-19
CPT/HCPCS: 36415; 70450; 71045; 72125; 80048; 80053; 80306; 80320; 81001; 82140; 82550; 83605; 83690; 83735; 85025; 85610; 93005; 94640; 94760; 96361; 96365; 96366; 96372; 99285

== ENCOUNTER 2025-03-31 21:00 | Observation (INO) | payer MEDICARE, OTHER ==
--- NOTE | 2025-03-31 21:41 | ED ---
Chest Pain HPI - General Chief Complaint: Chest Pain Stated Complaint: Chest Pain Time Seen by Provider: 03/31/25 21:19 Source: patient Mode of arrival: EMS - History of Present Illness Initial Comments: This patient is a 64-year-old woman who states that she woke up proximately 2 to 3 hours ago with a feeling of heaviness on the left chest. She states that the pain comes and goes but has not resolved. No accompanying symptoms. MD Complaint: chest pain Onset/Timin -: hour(s) Onset: awoke with symptoms Pain Location: left chest Pain Radiation: none Severity: moderate Quality: heaviness Consistency: intermittent Improves With: nothing Worsens With: nothing Treatments Prior to Arrival: none - Related Data Home Medications Medication Instructions Recorded Confirmed Acetaminophen Tab [Tylenol] 1,000 mg PO Q6H PRN 08/02/22 10/22/22 Albuterol Inhaler [Ventolin Hfa 2 puff INHALATION RT-Q4H PRN 08/02/22 10/22/22 Inhaler] QUEtiapine [SEROquel] 200 mg PO HS 08/02/22 10/22/22 Previous Rx's Medication Instructions Recorded amLODIPine [Norvasc] 10 mg PO DAILY #14 tab 07/23/19 Folic Acid 1 mg PO DAILY #30 tablet 08/04/22 Thiamine [Vitamin B-1] 100 mg PO DAILY #30 tablet 08/04/22 Benzonatate [Tessalon Perles] 100 mg PO TID PRN #20 cap 10/26/22 Allergies Allergy/AdvReac Type Severity Reaction Status Date / Time ibuprofen [From Motrin] Allergy Rash on Verified 10/22/22 13:39 face & Vomiting Review of Systems ROS Statement: Those systems with pertinent positive or pertinent negative responses have been documented in the HPI. ROS Other: All systems not noted in ROS Statement are negative. Constitutional: Denies: fever, chills Respiratory: Denies: cough, dyspnea Cardiovascular: Reports: chest pain. Denies: palpitations, edema Gastrointestinal: Denies: abdominal pain, nausea, vomiting Genitourinary: Denies: dysuria, hematuria Musculoskeletal: Denies: back pain Skin: Denies: rash Neurological: Denies: headache, weakness, numbness EKG Findings - EKG Results: EKG: interpreted by ERMD, WNL, sinus rhythm, normal axis, normal QRS EKG shows: tachycardia (Rate 125 bpm) - Blocks, [place], Hypertrophy, ST Abn: Repolarization changes or abnormalities: nonspecific abnormality, ST segment, and/or T wave Past Medical History Past Medical History: COPD, Hypertension, Thyroid Disorder Additional Past Medical History / Comment(s): Myasthenia gravis History of Any Multi-Drug Resistant Organisms: None Reported Past Surgical History: No Surgical Hx Reported Additional Past Surgical History / Comment(s): myasthenia gravis Past Anesthesia/Blood Transfusion Reactions: No Reported Reaction Past Psychological History: Anxiety, Bipolar, Depression Smoking Status: Current every day smoker, Heavy tobacco smoker Past Alcohol Use History: Occasional Past Drug Use History: Marijuana - Past Family History Father History Unknown: Yes Mother History Unknown: Yes Sister(s) History Unknown: Yes Brother(s) History Unknown: Yes Daughter(s) Family Medical History: No Reported History Son(s) Family Medical History: No Reported History General Exam General appearance: alert, in no apparent distress, appears intoxicated Head exam: Present: atraumatic, normocephalic Eye exam: Present: normal appearance. Absent: scleral icterus, conjunctival injection Neck exam: Present: normal inspection Respiratory exam: Present: normal lung sounds bilaterally, chest wall tenderness. Absent: respiratory distress, wheezes, rales, rhonchi, stridor, accessory muscle use Cardiovascular Exam: Present: normal rhythm, tachycardia, normal heart sounds. Absent: systolic murmur, diastolic murmur, rubs, gallop GI/Abdominal exam: Present: soft. Absent: distended, tenderness, guarding, rebound, rigid, mass Extremities exam: Present: normal inspection, normal capillary refill. Absent: pedal edema, calf tenderness Back exam: Present: normal inspection. Absent: CVA tenderness (R), CVA tenderness (L) Neurological exam: Present: alert Skin exam: Present: warm, dry, intact, normal color. Absent: rash Course Vital Signs 03/31/25 21:03 Temperature 97.6 F Pulse Rate 128 H Respiratory 18 Rate Blood Pressure 131/83 O2 Sat by Pulse 97 Oximetry Disposition Referrals: None,Stated [Primary Care Provider] - 1-2 days
[2025-03-31] MEDS: ASPIRIN 81 MG PO STA (21:44)
[2025-03-31 21:59] LABS: Basophils # (A) 0.06 10*3/uL (0.00-0.10); Basophils % (A) 0.8 %; Eosinophils # (A) 0.02 10*3/uL (0.04-0.35); Eosinophils % (A) 0.3 %; HCT 43.2 % (37.2-46.3); HGB 15.1 g/dL (12.0-15.0); Lymphocytes # (A) 1.87 10*3/uL (0.90-5.00); Lymphocytes % (A) 24.7 %; MCH 31.5 pg (27.0-32.0); Mean Platelet Volume 10.4 fL (9.5-12.2); Monocytes # (A) 0.23 10*3/uL (0.20-1.00); Neutrophils # (A) 5.39 10*3/uL (1.80-7.70); Neutrophils % (A) 71.1 %; Platelet Count 266 10*3/uL (140-440); RDW 13.5 % (11.5-14.5); WBC 7.58 10*3/uL (4.50-10.00)
--- NOTE | 2025-03-31 21:59 | XR ---
EXAMINATION TYPE: XR chest 2V DATE OF EXAM: 03/31/2025 9:55 PM COMPARISON: 10/22/2022 CLINICAL INDICATION: Female, 64 years old with history of Chest Pain: Shortness of breath TECHNIQUE: XR chest 2V views of the chest are obtained. FINDINGS: Scattered senescent parenchymal changes noted. Hyperinflation compatible with COPD. No evidence for infiltrate. No evidence for atelectasis. Heart size is stable. Mediastinal structures are stable and grossly unremarkable. No evidence for hilar prominence. Degenerative changes dorsal spine. IMPRESSION: 1. No evidence for acute pulmonary disease. [facility], , 03/31/2025 9:57 PM
[2025-03-31 22:20] LABS: ALT 35 U/L (4-34); AST 99 U/L (14-36); African American GFR (CKD) >90 (>60 ml/min/1.73 sqM); Alkaline Phosphatase 108 U/L (38-126); Anion Gap 25 mmol/L; Blood Urea Nitrogen 13 mg/dL (7-17); Calcium 9.2 mg/dL (8.4-10.2); Carbon Dioxide 17 mmol/L (22-30); Chloride 105 mmol/L (98-107); Glucose 85 mg/dL (74-99); Magnesium 1.4 mg/dL (1.6-2.3); Non-African American GFR(CKD) >90 (>60 ml/min/1.73 sqM); Potassium 3.3 mmol/L (3.5-5.1); Sodium 147 mmol/L (137-145); Total Bilirubin 0.6 mg/dL (0.2-1.3); Total Protein 8.8 g/dL (6.3-8.2)
[2025-03-31 22:27] LABS: INR 1.1 (<1.2); Partial Thromboplastin Time 23.6 sec (22.0-30.0)
[2025-03-31 22:34] LABS: Alcohol 268 mg/dL
[2025-04-01] MEDS: POTASSIUM CHLORIDE ER 20 MEQ TAB.ER PO STA ×2 (00:26→14:58)
[2025-04-01] MEDS ORDERED: NITROGLYCERIN SL TABS 0.4 MG TAB SUBLINGUAL PRN (00:31)
[2025-04-01] MEDS ORDERED: LORazepam 2 MG/ML INJ IV PRN ×3 (00:38)
[2025-04-01] MEDS ORDERED: ALBUTEROL NEBULIZED 2.5 MG/3 ML INHALATION PRN (00:39)
[2025-04-01] MEDS: MAGNESIUM OXIDE 400 MG TAB PO STA (01:40)
[2025-04-01] MEDS: SODIUM CHLORIDE 0.9% 1,000 ML IV SCH (01:42)
[2025-04-01] MEDS: chlordiazePOXIDE 25 MG CAP PO PRN (05:25)
[2025-04-01] MEDS ORDERED: DOBUTamine DRIP for NUC MED 500 MG/250 ML BAG IV ONE (08:00)
[2025-04-01] MEDS ORDERED: CAFFEINE CITRATE 60 MG/3 ML VIAL IV PRN (10:48)
[2025-04-01] MEDS ORDERED: AMINOPHYLLINE 500 MG/20 ML VIAL IV PRN (10:48)
[2025-04-01] MEDS ORDERED: REGADENOSON 0.4 MG/5 ML SYRINGE IV PRN (10:48)
[2025-04-01] MEDS ORDERED: LORazepam 1 MG/0.5 ML VIAL IV PRN ×3 (10:48)
[2025-04-01] MEDS ORDERED: DOBUTamine DRIP for NUC MED 500 MG in DEXTROSE/WATER 1 250ML.BAG IV PRN (10:51)
--- NOTE | 2025-04-01 12:47 | P.CRDCN ---
History of Present Illness Consult date: 04/01/25 Consult reason: chest pain History of present illness: This is a 64-year-old female patient of Dr. Beck with past medical history of lacunar infarcts on MRI, tobacco use and dependence, hypertension, dyslipidemia. We have been asked to evaluate the patient for chest pain. Patient had a recent office visit with Dr. Beck on 03/[address] Lenz for evaluation of left lacunar infarcts found on MRI. She was set up for a monitor outpatient for 10 days and patient states that she just returned this on Friday. Patient states that she came into the hospital due to chest pain and her heart racing. She was still having symptoms when she came into the emergency center and it gradually eased up on its own. She does have some chest wall tenderness. Blood pressure 119/65, heart rate 76, pulse ox 96% on room air. Patient presented with heart rate in the 120s and blood pressure has been as high as 151/82. Potassium and magnesium have been replaced. -EKG: #1 sinus tachycardia 125 bpm, #2 sinus tachycardia 110 bpm -Chest x-ray: No acute process. -Laboratory studies: Troponin negative x 3. Serum alcohol 268. Creatinine 0.63, potassium 3.3, magnesium 1.4. Sodium 147. Hemoglobin 15.1. -Home cardiac medications: Amlodipine 10 mg daily, Crestor 20 mg daily. - Review Of Systems: At the time of my exam: CONSTITUTIONAL: Denies fever or chills. HEENT: Denies blurred vision, vision changes, or eye pain. Denies hemoptysis CARDIOVASCULAR: Denies chest pain. Denies orthopnea. Denies PND. Denies palpitations RESPIRATORY: Denies shortness of breath. GASTROINTESTINAL: Denies abdominal pain. Denies nausea or vomiting. HEMATOLOGIC: Denies bleeding disorders. GENITOURINARY: Denies any blood in urine. SKIN: Denies puritis. Denies rash. Physical examination: Gen: This is a 64-year-old black female in no acute distress. VS: reviewed HEENT: Head is atraumatic, normocephalic. Pupils equal, round. Sclerae is anicteric. NECK: Supple. No JVD. LUNGS: Clear to auscultation. No wheezes or rhonchi. No intercostal retr actions. HEART: Regular rate and rhythm. No murmur. + Chest wall tenderness. ABDOMEN: Soft No tenderness. EXTREMITIES: No pedal edema. No calf tenderness. NEUROLOGICAL: Patient is awake, alert and oriented x3. Assessment: Palpitations most likely due to sinus tachycardia Atypical chest pain, acute coronary syndrome ruled out Alcohol intoxication Hypokalemia and hypomagnesemia status post replacement Lacunar infarcts on MRI Hypertension Dyslipidemia Tobacco use and dependence Plan: Resume patient's home cardiac medications Schedule patient for dobutamine stress echo today We will attempt to obtain recent event monitor Obtain 2-D echocardiogram and Doppler study to assess cardiac structure and function Further recommendations to follow based upon clinical course At the time of discharge, patient will follow-up with Dr. Beck in 1 to 2 weeks. Smoking cessation. Patient will be provided the patient can quit line information at discharge thank you kindly for this consultation. Nurse practitioner note has been reviewed, I agree with documented findings and plan of care. Patient was seen and examined. Past Medical History Past Medical History: COPD, Hypertension, Thyroid Disorder Additional Past Medical History / Comment(s): Myasthenia gravis History of Any Multi-Drug Resistant Organisms: None Reported Past Surgical History: No Surgical Hx Reported Additional Past Surgical History / Comment(s): myasthenia gravis Past Anesthesia/Blood Transfusion Reactions: No Reported Reaction Past Psychological History: Anxiety, Bipolar, Depression Smoking Status: Current every day smoker, Heavy tobacco smoker Past Alcohol Use History: Occasional Additional Past Alcohol Use History / Comment(s): Patient states she had 2 cups of gin "a couple days ago." Past Drug Use History: Marijuana - Past Family History Father History Unknown: Yes Mother History Unknown: Yes Sister(s) History Unknown: Yes Brother(s) History Unknown: Yes Daughter(s) Family Medical History: No Reported History Son(s) Family Medical History: No Reported History Medications and Allergies Home Medications Medication Instructions Recorded Confirmed Type amLODIPine [Norvasc] 10 mg PO DAILY #14 tab 07/23/19 04/01/25 Rx Albuterol Inhaler [Ventolin Hfa 2 puff INHALATION RT-Q4H PRN 08/02/22 04/01/25 History Inhaler] QUEtiapine [SEROquel] 200 mg PO HS 08/02/22 04/01/25 History Cyproheptadine [Cyproheptadine HCl] 4 mg PO TID 04/01/25 04/01/25 History HYDROcodone/APAP 7.5-325MG [[place] 1 tab PO TID PRN 04/01/25 04/01/25 History 7.5-325] Rosuvastatin [Crestor] 20 mg PO DAILY 04/01/25 04/01/25 History Allergies Allergy/AdvReac Type Severity Reaction Status Date / Time ibuprofen [From Motrin] Allergy Rash on Verified 04/01/25 07:46 face & Vomiting Physical Exam Vitals: Vital Signs Temp Pulse Pulse Resp BP BP Pulse Ox 04/01/25 07:00 97.5 F L 76 17 119/65 96 04/01/25 01:50 97.9 F 112 H 18 151/82 97 04/01/25 01:44 98.6 F 112 H 18 116/73 97 04/01/25 00:00 117 H 15 114/71 92 L 03/31/25 23:06 117 H 20 120/67 94 L 03/31/25 21:03 97.6 F 128 H 18 131/83 97 Intake and Output 03/31/25 04/01/25 04/01/25 22:59 06:59 14:59 Other: Voiding Method Toilet # Voids 1 Weight 56.699 kg 56.699 kg Results 03/31/25 21:35 03/31/25 21:35 Cardiac Enzymes 03/31/25 03/31/25 04/01/25 Range/Units 21:35 21:35 00:40 AST 99 H (14-36) U/L Troponin I 0.015 <0.012 (0.000-0.034) ng/mL 04/01/25 Range/Units 03:31 AST (14-36) U/L Troponin I <0.012 (0.000-0.034) ng/mL Coagulation 03/31/25 Range/Units 21:35 PT 12.0 (10.0-12.5) sec APTT 23.6 (22.0-30.0) sec CBC 03/31/25 Range/Units 21:35 WBC 7.58 (4.50-10.00) 10*3/uL RBC 4.80 (4.10-5.20) 10*6/uL Hgb 15.1 H (12.0-15.0) g/dL Hct 43.2 (37.2-46.3) % Plt Count 266 (140-440) 10*3/uL Comprehensive Metabolic Panel 03/31/25 Range/Units 21:35 Sodium 147 H (137-145) mmol/L Potassium 3.3 L (3.5-5.1) mmol/L Chloride 105 (98-107) mmol/L Carbon Dioxide 17 L (22-30) mmol/L BUN 13 (7-17) mg/dL Creatinine 0.63 (0.52-1.04) mg/dL Glucose 85 (74-99) mg/dL Calcium 9.2 (8.4-10.2) mg/dL AST 99 H (14-36) U/L ALT 35 H (4-34) U/L Alkaline Phosphatase 108 (38-126) U/L Total Protein 8.8 H (6.3-8.2) g/dL Albumin 5.0 (3.5-5.0) g/dL Current Medications Generic Name Dose Route Start Last Admin Trade Name Freq PRN Reason Stop Dose Admin Albuterol Sulfate 2.5 mg 04/01/25 00:39 Albuterol Nebulized 2.5 Mg/3 Ml INHALATION RT-Q4H PRN Shortness Of Breath Amlodipine Besylate 10 mg 04/01/25 09:00 Amlodipine 10 Mg Tab PO DAILY [facility] Aspirin 325 mg 04/02/25 09:00 Aspirin 325 Mg Tab PO DAILY [facility] Chlordiazepoxide HCl 25 mg 04/01/25 00:38 04/01/25 05:25 Chlordiazepoxide 25 Mg Cap PO 25 mg Q4HR PRN Administration [place] 4 To 5 Folic Acid 1 mg 04/01/25 09:00 Folic Acid 1 Mg Tab PO DAILY [facility] Sodium Chloride 1,000 mls @ 20 mls/hr 04/01/25 00:45 04/01/25 01:42 Saline 0.9% IV 20 mls/hr .Q24H [place] Administration Lorazepam 2 mg 04/01/25 00:38 Lorazepam 2 Mg/Ml Inj IV 04/03/25 00:39 Q10M PRN CIWA 16 or higher Lorazepam 1 mg 04/01/25 00:38 Lorazepam 2 Mg/Ml Inj IV Q2HR PRN CIWA 8 or 9 Lorazepam 1 mg 04/01/25 00:38 Lorazepam 2 Mg/Ml Inj IV Q1HR PRN CIWA 10 to 15 Magnesium Oxide 400 mg 04/01/25 09:00 Magnesium Oxide 400 Mg Tab PO DAILY [facility] Nitroglycerin 0.4 mg 04/01/25 00:31 Nitroglycerin Sl Tabs 0.4 Mg Tab SUBLINGUAL Q5M PRN Chest Pain Potassium Chloride 20 meq 04/01/25 09:00 Potassium Chloride Er 20 Meq Tab.Er PO BID [facility]ERNA[place] Quetiapine Fumarate 200 mg 04/01/25 21:00 Quetiapine 200 Mg Tab PO HS [facility] Thiamine HCl 100 mg 04/02/25 09:00 Thiamine 100 Mg Tab PO DAILY [facility] Intake and Output 03/31/25 04/01/25 04/01/25 22:59 06:59 14:59 Other: Voiding Method Toilet # Voids 1 Weight 56.699 kg 56.699 kg 03/31/25 21:35 03/31/25 21:35
[2025-04-01] MEDS: MAGNESIUM SULFATE-D5W PMX 1 GM in DEXTROSE/WATER 1 100ML.BAG IVPB SCH (13:39)
[2025-04-01] MEDS: POTASSIUM CHLORIDE ER 20 MEQ TAB.ER PO SCH (13:40)
[2025-04-01] MEDS: FOLIC ACID 1 MG TAB PO SCH (13:40)
[2025-04-01] MEDS: MAGNESIUM OXIDE 400 MG TAB PO SCH (13:40)
[2025-04-01] MEDS: SODIUM CHLORIDE 0.45% 1,000 ML IV SCH (13:51)
[2025-04-01] MEDS: HYDROcodone/APAP 7.5-325MG 1 EACH TAB PO PRN (13:52)
[2025-04-01] MEDS: amLODIPine 10 MG TAB PO SCH (14:13)
--- NOTE | 2025-04-01 15:46 | CA ---
Dobutamine Stress Echocardiogram Report Erika Wilder Age: 64 Gender: F : 1960 Exam Date: 04/01/2025 12:39 Exam Location: [facility] Ordering Physician: Sydney Padilla Referring Physician: [id number] Lozano [employer] Equipment Operator: Marilyn Trejo RDCS Technologist: Ht (in): 66 Wt (lb): 125 Procedure CPT: Indication: Chest Pain ICD-9 Codes: Rhythm: Patient History: CHEST PAIN, HTN, PRIOR STROKE, HYPERCHOLESTEROLEMIA, CURRENT SMOKER, COPD Cardiac Medications: SEE CHART,,, Medications in past 24 hours: Contrast: Total Dose (mL): Stress Results Protocol: Dobutamine Peak Dose (???g/kg/min): 30 Duration (min:sec): Atropine:(mg) Target HR: 133 Double Product: [id number] Resting HR: 117 Resting BP: 127 / 75 Peak HR: 137 Peak BP: 160 / 71 Max Predicted HR: 157 87 % Max Predicted HR Stress Summary: BP Response: Reason for Termination: Target HR Cardiac Symptoms: NO SYMPTOMS ECG Analysis Resting EKG: Stress EKG: Arrhythmia: Echo Analysis Base Echo Analysis: Low Echo Anaylsis: Peak Echo Analysis: Recovery Echo: MEASUREMENTS (Male/Female) Normal Values CONCLUSIONS Patient underwent dobutamine stress echo with infusion of dobutamine into Stage 3 for a total of 8 minutes and 32 seconds. Patient's maximum heart rate was 137 which represented 87% age- predicted maximum heart rate. Stress EKG portion: At baseline patient's EKG showed sinus tachycardia with heart rate 110 bpm with normal axis, nonspecific 0.[address] depressions in the inferior and lateral leads.. At peak dobutamine infusion, EKG showed no significant change from baseline. Stress echo portion: 2-D echocardiogram was performed in the parasternal long, personal short, apical 2 and apical four-chamber views at rest, low-dose, peak infusion and in recovery. At baseline, echocardiogram showed left ventricular ejection fraction 55% without wall motion abnormalities. With peak infusion, echocardiogram shows improvement in left ventricular ejection fraction, increase contractility, decrease in left ventricular end systolic dimension without wall motion abnormalities consistent with a normal response to dobutamine. Conclusions: 1. Nonspecific stress EKG portion second baseline EKG abnormalities 2. Normal stress echo portion without inducible ischemia Dr. Christian Sampson DO (Electronically Signed) Final Date: 01 Apr 2025 15:46
--- NOTE | 2025-04-01 15:52 | P.HPIM ---
History of Present Illness Patient is 64-year-old female came in with complaints of chest pressure and heart racing and she does have some tenderness of the chest. Patient chest pain is nonradiating no associated lightheadedness or diaphoresis. Chest pain is n onpleuritic in nature. Patient had an EKG which showed sinus tachycardia with rates of 125 bpm. Chest x-ray did not show any significant abnormality troponins were negative. D-dimer within normal limits TSH within normal limits patient is slightly elevated sodium of 147 low potassium of 3.3 extremely low magnesium. Patient was also intoxicated when she came in patient chest pain is not burning sensation not associate with food. Patient's MCV is within normal limits AST and ALT are elevated AST being 99 ALT being 35. Patient was started on Ativan CIWA protocol patient denies drinking alcohol every day although patient is having withdrawals at this time. On admission patient was intoxic ated with serum alcohol levels about 200. Patient's magnesium was low Patient was eval by cardiology recommending a stress test. REVIEW OF SYSTEMS: All other systems are negative except those mentioned in the HPI PHYSICAL EXAMINATION: GENERAL: The patient is alert and oriented x3, not in any acute distress. Well developed, well nourished. HEENT: Pupils are round and equally reacting to light. EOMI. No scleral icterus. No conjunctival pallor. Normocephalic, atraumatic. No pharyngeal erythema. No thyromegaly. CARDIOVASCULAR: S1 and S2 present. No murmurs, rubs, or gallops. Tachycardic PULMONARY: Chest is clear to auscultation, no wheezing or crackles. ABDOMEN: Soft, nontender, nondistended, normoactive bowel sounds. No palpable organomegaly. MUSCULOSKELETAL: No joint swelling or deformity. EXTREMITIES: No cyanosis, clubbing, or pedal edema. NEUROLOGICAL: Gross neurological examination did not reveal any focal deficits. SKIN: No rashes. Assessment and plan -Chest pressure patient is undergoing stress test rule out acute coronary syndromes - Palpitations secondary to sinus tachycardia which is again secondary to possibly dehydration from alcoholism patient will be started on IV fluids considering patient has elevated sodium patient was started on half-normal saline - Alcohol intoxication and alcohol abuse: Counseling was provided - Alcohol withdrawals patient is on Ativan CIWA protocol - History of lacunar infarcts on MRI for which patient follows up with neurology as an outpatient patient is presently on aspirin but not on a statin. Will obtain lipid panel - Hypokalemia and hypomagnesemia secondary to alcohol use we will do aggressive replacement - Nicotine use: Counseling was provided Patient will be monitored overnight if patient does not have any significant withdrawals on scheduled Librium patient will be discharged tomorrow DVT prophylaxis: Lovenox Past Medical History Past Medical History: COPD, Hypertension, Thyroid Disorder Additional Past Medical History / Comment(s): Myasthenia gravis History of Any Multi-Drug Resistant Organisms: None Reported Past Surgical History: No Surgical Hx Reported Additional Past Surgical History / Comment(s): myasthenia gravis Past Anesthesia/Blood Transfusion Reactions: No Reported Reaction Past Psychological History: Anxiety, Bipolar, Depression Smoking Status: Current every day smoker, Heavy tobacco smoker Past Alcohol Use History: Occasional Additional Past Alcohol Use History / Comment(s): Patient states she had 2 cups of gin "a couple days ago." Past Drug Use History: Marijuana - Past Family History Father History Unknown: Yes Mother History Unknown: Yes Sister(s) History Unknown: Yes Brother(s) History Unknown: Yes Daughter(s) Family Medical History: No Reported History Son(s) Family Medical History: No Reported History Medications and Allergies Home Medications Medication Instructions Recorded Confirmed Type amLODIPine [Norvasc] 10 mg PO DAILY #14 tab 07/23/19 04/01/25 Rx Albuterol Inhaler [Ventolin Hfa 2 puff INHALATION RT-Q4H PRN 08/02/22 04/01/25 History Inhaler] QUEtiapine [SEROquel] 200 mg PO HS 08/02/22 04/01/25 History Cyproheptadine [Cyproheptadine HCl] 4 mg PO TID 04/01/25 04/01/25 History HYDROcodone/APAP 7.5-325MG [[place] 1 tab PO TID PRN 04/01/25 04/01/25 History 7.5-325] Rosuvastatin [Crestor] 20 mg PO DAILY 04/01/25 04/01/25 History Allergies Allergy/AdvReac Type Severity Reaction Status Date / Time ibuprofen [From Motrin] Allergy Rash on Verified 04/01/25 07:46 face & Vomiting Physical Exam Vitals: Vital Signs Temp Pulse Pulse Resp BP BP Pulse Ox 04/01/25 14:00 97.9 F 112 H 17 165/71 99 04/01/25 07:00 97.5 F L 76 17 119/65 96 04/01/25 01:50 97.9 F 112 H 18 151/82 97 04/01/25 01:44 98.6 F 112 H 18 116/73 97 04/01/25 00:00 117 H 15 114/71 92 L 03/31/25 23:06 117 H 20 120/67 94 L 03/31/25 21:03 97.6 F 128 H 18 131/83 97 Intake and Output 04/01/25 04/01/25 04/01/25 06:59 14:59 22:59 Other: Voiding Method Toilet # Voids 1 3 Weight 56.699 kg Results CBC & Chem 7: 03/31/25 21:35 03/31/25 21:35 Labs: Abnormal Lab Results - Last 24 Hours (Table) 03/31/25 03/31/25 Range/Units 21:35 21:35 Hgb 15.1 H (12.0-15.0) g/dL Eosinophils # 0.02 L (0.04-0.35) 10*3/uL Sodium 147 H (137-145) mmol/L Potassium 3.3 L (3.5-5.1) mmol/L Carbon Dioxide 17 L (22-30) mmol/L Magnesium 1.4 L (1.6-2.3) mg/dL AST 99 H (14-36) U/L ALT 35 H (4-34) U/L Total Protein 8.8 H (6.3-8.2) g/dL Serum Alcohol 268 H* mg/dL
[2025-04-01 16:33] LABS: African American GFR (CKD) >90 (>60 ml/min/1.73 sqM); Anion Gap 13 mmol/L; Blood Urea Nitrogen 15 mg/dL (7-17); Calcium 8.8 mg/dL (8.4-10.2); Carbon Dioxide 21 mmol/L (22-30); Chloride 100 mmol/L (98-107); Glucose 232 mg/dL (74-99); Non-African American GFR(CKD) >90 (>60 ml/min/1.73 sqM); Sodium 134 mmol/L (137-145)
[2025-04-01 16:40] LABS: Magnesium 2.4 mg/dL (1.6-2.3); Potassium 4.5 mmol/L (3.5-5.1)
[2025-04-01] MEDS: ENOXAPARIN 40 MG/0.4 ML SYRINGE SQ SCH (17:18)
[2025-04-01] MEDS: QUEtiapine 200 MG TAB PO SCH (20:56)
[2025-04-02 01:54] VITALS: PULSE 83
[2025-04-02 07:26] VITALS: BP 117/76; RESP 16; TEMP 98.1
[2025-04-02] MEDS: THIAMINE 100 MG TAB PO SCH (08:54)
[2025-04-02] MEDS: ASPIRIN 325 MG TAB PO SCH (08:54)
[2025-04-02] MEDS: amLODIPine 10 MG TAB PO SCH (08:55)
--- NOTE | 2025-04-02 09:48 | P.PN ---
Subjective Progress Note Date: 04/02/25 Consult reason: chest pain History of present illness: This is a 64-year-old female patient of Dr. Beck with past medical history of lacunar infarcts on MRI, tobacco use and dependence, hypertension, dyslipidemia. We have been asked to evaluate the patient for chest pain. Patient had a recent office visit with Dr. Beck on 03/[address] Lenz for evaluation of left lacunar infarcts found on MRI. She was set up for a monitor outpatient for 10 days and patient states that she just returned this on Friday. Patient states that she came into the hospital due to chest pain and her heart racing. She was still having symptoms when she came into the emergency center and it gradually eased up on its own. She does have some chest wall tenderness. Blood pressure 119/65, heart rate 76, pulse ox 96% on room air. Patient presented with heart rate in the 120s and blood pressure has been as high as 151/82. Potassium and magnesium have been replaced. -EKG: #1 sinus tachycardia 125 bpm, #2 sinus tachycardia 110 bpm -Chest x-ray: No acute process. -Laboratory studies: Troponin negative x 3. Serum alcohol 268. Creatinine 0.63, potassium 3.3, magnesium 1.4. Sodium 147. Hemoglobin 15.1. -Home cardiac medications: Amlodipine 10 mg daily, Crestor 20 mg daily. 04/02 Patient seen and examined. Yesterday patient underwent a dobutamine stress echo which came back normal. She had refused the echocardiogram. She denies chest pain or chest pressure at this time. Blood pressure 117/76, heart rate 83, pulse ox 94% on room air. Repeat blood work reveals creatinine 0.61, potassium 4.5. TSH 1.12 Physical examination: Gen: This is a 64-year-old black female in no acute distress. VS: reviewed HEENT: Head is atraumatic, normocephalic. Pupils equal, round. Sclerae is anicteric. NECK: Supple. No JVD. LUNGS: Clear to auscultation. No wheezes or rhonchi. No intercostal retractions. HEART: Regular rate and rhythm. No murmur. + Chest wall tenderness. ABDOMEN: Soft No tenderness. EXTREMITIES: No pedal edema. No calf tenderness. NEUROLOGICAL: Patient is awake, alert and oriented x3. Assessment: Palpitations most likely due to sinus tachycardia Atypical chest pain, acute coronary syndrome ruled out, dobutamine stress echo revealed no inducible ischemia Alcohol intoxication Hypokalemia and hypomagnesemia status post replacement Lacunar infarcts on MRI Hypertension Dyslipidemia Tobacco use and dependence Plan: Continue patient's home cardiac medications Patient refused echocardiogram Patient is cleared for discharge and patient will follow-up with Dr. Beck in 1 to 2 weeks. Smoking cessation. Patient will be provided the patient can quit line information at discharge thank you kindly for this consultation. Nurse practitioner note has been reviewed, I agree with documented findings and plan of care. Patient was seen and examined. Objective - Vital Signs Vital signs: Vital Signs Temp 98.1 F 04/02/25 07:00 Pulse 83 04/02/25 07:00 Resp 16 04/02/25 07:00 BP 117/76 04/02/25 07:00 Pulse Ox 94 L 04/02/25 07:00 FiO2 Intake & Output 04/01/25 04/02/25 04/02/25 18:59 06:59 18:59 Intake Total 240 Balance 240 Intake: Oral 240 Other: Voiding Method Toilet # Voids 3 1 - Labs CBC & Chem 7: 03/31/25 21:35 04/01/25 15:47 Labs: Abnormal Lab Results - Last 24 Hours (Table) 04/01/25 Range/Units 15:47 Sodium 134 L (137-145) mmol/L Carbon Dioxide 21 L (22-30) mmol/L Glucose 232 H (74-99) mg/dL Magnesium 2.4 H (1.6-2.3) mg/dL
[2025-04-02 10:12] LABS: BUN/Creat Ratio 18.88 Ratio (12.00-20.00); Blood Urea Nitrogen 15.1 mg/dL (9.0-27.0); Carbon Dioxide 22.4 mmol/L (21.6-31.8); Chloride 105 mmol/L (96-109); Glucose 93 mg/dL (70-110); LDL Cholesterol,Calculated 29.2 mg/dL (0.0-131.0); Magnesium 2.2 mg/dL (1.5-2.4); Potassium 5.2 mmol/L (3.5-5.5); Sodium 136 mmol/L (135-145)
[2025-04-02 10:13] LABS: ALT 31 U/L (8-44); AST 83 U/L (13-35); Albumin/Globulin Ratio 1.43 Ratio (1.60-3.17); Alkaline Phosphatase 86 U/L (41-126); Globulin 2.8 g/dL (1.6-3.3); Total Bilirubin 0.6 mg/dL (0.3-1.2); Total Protein 6.8 g/dL (6.2-8.2)
--- NOTE | 2025-04-02 13:35 | P.DS ---
Providers Date of admission: 04/01/25 00:35 Attending physician: Braxton Meyer Consults: 04/01/25 00:31 Consult Physician Routine Consulting Provider: Tank Hunt Consult Reason/Comments: chest pain Do you want consulting provider notified?: Yes Primary care physician: Stated None Hospital Course: Patient is 64-year-old female came in with complaints of chest pressure and heart racing and she does have some tenderness of the chest. Patient chest pain is nonradiating no associated lightheadedness or diaphoresis. Chest pain is nonpleuritic in nature. Patient had an EKG which showed sinus tachycardia with rates of 125 bpm. Chest x-ray did not show any significant abnormality troponins were negative. D-dimer within normal limits TSH within normal limits patient is slightly elevated sodium of 147 low potassium of 3.3 extremely low magnesium. Patient was also intoxicated when she came in patient chest pain is not burning sensation not associate with food. Patient's MCV is within normal limits AST and ALT are elevated AST being 99 ALT being 35. Patient was started on Ativan CIWA protocol patient denies drinking alcohol every day although patient is having withdrawals at this time. On admission patient was intoxicated with serum alcohol levels about 200. Patient's magnesium was low Patient was eval by cardiology recommending a stress test. 04/02/2025 Patient had a stress test which was dobutamine echo which was within normal limits patient refused echocardiogram TSH within normal limits. Patient is cleared from cardiology perspective otherwise clinically doing well patient did not have any significant withdrawals her withdrawals were very well-controlled with Librium patient will be discharged on Librium taper PHYSICAL EXAMINATION: GENERAL: The patient is alert and oriented x3, not in any acute distress. Well developed, well nourished. HEENT: Pupils are round and equally reacting to light. EOMI. No scleral icterus. No conjunctival pallor. Normocephalic, atraumatic. No pharyngeal erythema. No thyromegaly. CARDIOVASCULAR: S1 and S2 present. No murmurs, rubs, or gallops. Tachycardic PULMONARY: Chest is clear to auscultation, no wheezing or crackles. ABDOMEN: Soft, nontender, nondistended, normoactive bowel sounds. No palpable organomegaly. MUSCULOSKELETAL: No joint swelling or deformity. EXTREMITIES: No cyanosis, clubbing, or pedal edema. NEUROLOGICAL: Gross neurological examination did not reveal any focal deficits. SKIN: No rashes. Assessment and plan -Chest pressure stress test negative for any inducible ischemia cleared by cardiology will be discharged today - Palpitations secondary to sinus tachycardia which is again secondary to possibly dehydration from alcoholism improved with IV fluids - Alcohol intoxication and alcohol abuse: Counseling was provided - Alcohol withdrawals patient did not require much of Ativan will be discharged on Librium taper - History of lacunar infarcts on MRI for which patient follows up with neurology as an outpatient patient is presently on aspirin but not on a statin. LDL is in the recommended limits - Hypokalemia and hypomagnesemia secondary to alcohol use improved with replacement - Nicotine use: Counseling was provided Patient will be discharged today Plan - Discharge Summary Discharge Rx Participant: No New Discharge Prescriptions: New Thiamine [Vitamin B-1] 100 mg PO DAILY #30 tab Pantoprazole [Protonix] 40 mg PO DAILY #10 tab chlordiazePOXIDE HCl [Librium] 25 mg PO DIRECTED 6 Days #12 capsule Continue amLODIPine [Norvasc] 10 mg PO DAILY #14 tab QUEtiapine [SEROquel] 200 mg PO HS Cyproheptadine [Cyproheptadine HCl] 4 mg PO TID Albuterol Inhaler [Ventolin Hfa Inhaler] 2 puff INHALATION RT-Q4H PRN PRN Reason: Shortness Of Breath HYDROcodone/APAP 7.5-325MG [[place] 7.5-325] 1 tab PO TID PRN PRN Reason: Pain Rosuvastatin [Crestor] 20 mg PO DAILY Discharge Medication List amLODIPine [Norvasc] 10 mg PO DAILY #14 tab 07/23/19 [Rx] Albuterol Inhaler [Ventolin Hfa Inhaler] 2 puff INHALATION RT-Q4H PRN 08/02/22 [History] QUEtiapine [SEROquel] 200 mg PO HS 08/02/22 [History] Cyproheptadine [Cyproheptadine HCl] 4 mg PO TID 04/01/25 [History] HYDROcodone/APAP 7.5-325MG [[place] 7.5-325] 1 tab PO TID PRN 04/01/25 [History] Rosuvastatin [Crestor] 20 mg PO DAILY 04/01/25 [History] Pantoprazole [Protonix] 40 mg PO DAILY #10 tab 04/02/25 [Rx] Thiamine [Vitamin B-1] 100 mg PO DAILY #30 tab 04/02/25 [Rx] chlordiazePOXIDE HCl [Librium] 25 mg PO DIRECTED 6 Days #12 capsule 04/02/25 [Rx] Follow up Appointment(s)/Referral(s): Cuong Hahn MD [STAFF PHYSICIAN] - 1 Week Discharge Disposition: HOME WITH HOME HEALTH SERVICES
== END 2025-04-02 14:42 | disposition home health service (06) ==
LOC: EC 21:00 → 6NMEDSUR 04-01 00:35
PROVIDERS: ADMIT Hospitalist; ATTEND Hospitalist
DX: R07.89 Other chest pain (principal); F10.229 Alcohol dependence with intoxication, unspecified; F10.239 Alcohol dependence with withdrawal, unspecified; E87.6 Hypokalemia; E83.42 Hypomagnesemia; E87.0 Hyperosmolality and hypernatremia; R74.01 Elevation of levels of liver transaminase levels; R00.0 Tachycardia, unspecified; I10 Essential (primary) hypertension; E78.5 Hyperlipidemia, unspecified; Y90.8 Blood alcohol level of 240 mg/100 ml or more; F17.200 Nicotine dependence, unspecified, uncomplicated; Z79.899 Other long term (current) drug therapy; Z88.6 Allergy status to analgesic agent; Z86.73 Personal history of transient ischemic attack (TIA), and cerebral infarction without residual deficits; Z71.41 Alcohol abuse counseling and surveillance of alcoholic; Z71.6 Tobacco abuse counseling
CPT/HCPCS: 96365; 96366; 99285; 36415; 93005; 93351; 85379; 80061; 80053 ×2; 80048; 84443; 83735 ×3; 84484 ×2; 85025; 85610; 85730; 80320; 71046; G0378 ×2; J1250; J3475

== ENCOUNTER → 2025-03-31 | Outpatient (CLI) | payer MEDICARE, OTHER ==
--- NOTE | 2025-03-31 15:09 | MM ---
Reason for Exam: Screening (asymptomatic). Baseline mammogram. Patient History: Menarche at age 15. First Full-Term at age 21. Postmenopausal. Risk Values: Lavern 5 year model risk: 1.2%. NCI Lifetime model risk: 4.9%. Prior Study Comparison: Patient's first Mammogram. Tissue Density: There are scattered areas of fibroglandular density. Findings: Analyzed By CAD. Benign appearing vascular calcification bilaterally is present. There are 2 sub-5 mm circumscribed masses in the left breast presumed benign lymph nodes or simple cysts. There is no suspicious group of microcalcifications or new suspicious mass in either breast. Overall Assessment: Benign, BI-RAD 2 Management: Screening Mammogram of both breasts in 1 year. . Patient should continue monthly self-breast exams. A clinical breast exam by your physician is recommended on an annual basis. This exam should not preclude additional follow-up of suspicious palpable abnormalities. Note on Lavern scores and lifetime risk: 1. A Lavern score greater than 3% is considered moderate risk. If this is the case, consider specialist referral to assess eligibility for a risk reducing agent. 2. If overall lifetime risk for the development of breast cancer is 20% or higher, the patient may qualify for future screening with alternating mammogram and breast MRI. [facility], , 03/31/2025 3:06 PM. Electronically signed and approved by: Gildardo Martinez M.D.
== END | disposition home or self-care (01) ==
LOC: RADMAMWWP 13:59
PROVIDERS: ATTEND Family Medicine
DX: Z12.31 Encounter for screening mammogram for malignant neoplasm of breast (principal); R92.323 Mammographic fibroglandular density, bilateral breasts; Z78.0 Asymptomatic menopausal state
CPT/HCPCS: 77063; 77067